=== PATIENT | female | born 1940 | race Caucasian/White ===

== ENCOUNTER 2017-03-30 18:36 | Inpatient (IN) ==
[2017-03-30] MEDS ORDERED: 0.9 % Sodium Chloride 1,000 ML IVC ONE ×2 (19:19→20:54)
--- NOTE | 2017-03-30 19:26 | Emergency Department Note ---
Disposition Clinical Impression: Hyponatremia Syncope Qualifiers: Syncope type: unspecified Qualified Code(s): R55 - Syncope and collapse Disposition: Admitted As Inpatient Condition: Good Time of Disposition: 23:33 General Adult HPI - General Chief complaint: ED Syncope Stated complaint: near syncopal Time Seen by Provider: 03/30/17 19:18 Source: patient, family, EMS Limitations: no limitations Nursing Notes Reviewed: Yes Vital Signs Reviewed: Yes (From today with a for about) - History of Present Illness HPI Narrative: One-month history of dyspnea on exertion increased weakness and falling. Last syncopal episode was today after she was lying on the couch and tried to get up. The daughter assisted her to the ground. She did not check her head. However 3 weeks ago she did have a syncopal episode outside where she did strike her head. The complaining of leg cramps today. Has been seen by her primary care physician and has a pending cardiac catheter this Friday. Pain Scale: 8 - Related Data Allergies Allergy/AdvReac Type Severity Reaction Status Date / Time codeine Allergy See Verified 03/30/17 19:50 Comments Penicillins Allergy See Verified 03/30/17 19:50 Comments All systems ED: reviewed and negative except as stated. Constitutional: Denies: fever, chills ENT ED: Denies: ear pain, throat pain, congestion Cardiovascular: Reports: syncope. Denies: chest pain, palpitations, dyspnea on exertion Respiratory: Reports: dyspnea (For the past month). Denies: cough Gastrointestinal: Denies: abdominal pain, nausea, vomiting, diarrhea Genitourinary: Denies: urgency, dysuria, frequency, hematuria Musculoskeletal: Denies: back pain, neck pain Integumentary: Denies: rash, lesions Neurological: Denies: headache, weakness Psychiatric: Denies: anxiety, depression Past Medical History - Past Medical History Medical history: Reports: hyperlipidemia, hypertension, thyroid disease - Social History Smoking Status: Never smoker Smokeless Tobacco Status: No Alcohol use: Reports: none Drug use: Reports: none Physical Exam - General Limitations: no limitations General appearance: alert, in no apparent distress - Head Head exam: atraumatic, normocephalic, other (Flattening of right-sided nasolabial folds. Report of decreased sensation initially on right side of his face. However after reassessed he states no decrease in sensation.) - Eye Eye exam: Present: normal appearance, PERRL, EOMI. Absent: scleral icterus - ENT ENT exam: normal exam, normal oropharynx, mucous membranes moist - Neck Neck exam: Present: normal inspection, full ROM, trachea midline - Chest Chest inspection: Present: normal inspection, symmetric chest wall rise. Absent : tenderness - Respiratory Respiratory exam: Present: normal lung sounds bilaterally. Absent: respiratory distress - Cardiovascular Cardiovascular exam: Present: regular rate, normal rhythm, normal heart sounds - Abdominal Exam Abdominal exam: Present: soft, Non-Tender, normal bowel sounds - Extremities Exam Extremities exam: Present: normal inspection, full ROM, normal capillary refill. Absent: tenderness, pedal edema - Back Exam Back exam: Present: normal inspection, full ROM. Absent: tenderness, CVA tenderness (R), CVA tenderness (L) - Neurological Exam Neurological exam: Present: alert, oriented X3 - Psychiatric Psychiatric exam: Present: normal affect, normal mood - Skin Skin exam: Present: warm, dry, intact, normal color Course Course Narrative: Well-appearing female patient presenting to the emergency department complaining of one month history of shortness of breath as well as 2 episodes of syncope. She appears to be mildly dyspneic on exam however lung sounds are clear. She has 100% oxygen saturation on room air. She has been seen by her primary care physician for this and has a cardiac catheter scheduled on Friday. She does have a history of hypothyroidism that she had worked up recently. She states that today she was lying on a couch and went to stand up and felt like she was going to pass out. Her daughter helped her back down to the ground. She did not strike her head. However 3-4 weeks ago she did have a syncopal episode in her yard and she struck her head at that time. She is on aspirin. She is neurologically intact at this time. She denies any chest pain. She does report that the shortness of breath that has been chronic over the past month but gets worse with exertion. She is also complaining of leg cramps at this time. We will give patient pain medication for this. She does not have any edema in any of her extremities. Patient's lung sounds are clear and heart sounds are normal. Abdomen is soft and nontender on exam. She appears well however mildly dyspneic. We will do a cardiac workup on patient and get a d-dimer. We will give patient a fluid bolus and pain medication for her cramping. - Reevaluation(s) Reevaluation #1: Patient is hyponatremic. We will admit patient for this. Patient and family are agreeable to this plan. Time: 23:32 - Consultations Consultation #1: Dr Son accepted Pt in stable condition. Time: 21:42 Vital Signs Temperature 97.5 F L 03/30/17 18:38 Pulse Rate 62 03/30/17 18:38 Respiratory Rate 18 03/30/17 18:38 Blood Pressure 169/82 03/30/17 18:38 O2 Sat by Pulse Oximetry 100 03/30/17 18:38 Temperature 97.9 F 03/30/17 23:04 Pulse Rate 61 03/30/17 23:12 Respiratory Rate 19 03/30/17 23:04 Blood Pressure 173/87 03/30/17 23:04 O2 Sat by Pulse Oximetry 100 03/30/17 23:12 Oxygen Delivery Oxygen Delivery Room Air Medical Decision Making - Medical Records Medical records reviewed: Yes I reviewed the patient's medical records. - Lab Data Lab results reviewed: Yes I reviewed the patient's lab results. Result diagrams: 03/30/17 19:41 03/30/17 19:41 Lab Results 03/30/17 03/30/17 03/30/17 Range/Units 19:41 19:41 19:41 WBC 13.6 H (4.3-11.1) K/mcL RBC 4.31 (3.82-4.97) M/mcL Hgb 13.7 (11.5-15.4) g/dL Hct 37.2 (35.3-44.9) % MCV 86.3 (83.0-100.0) fL MCH 31.8 (28.0-33.3) pg MCHC 36.8 H (31.6-35.5) g/dL RDW 11.6 (11.5-14.5) % Plt Count 371 (140-400) K/mcL MPV 8.4 L (9.4-12.4) fL Immature Gran % 1.9 (0-4) % Seg Neutrophils % 55.7 % Lymphocytes % 21.4 % Monocytes % 18.6 % Eosinophils % 2.3 % Basophils % 0.1 % Neutrophils # 7.6 (1.6-8.9) K/mcL Lymphocytes # 2.9 (0.6-4.6) K/mcL Monocytes # 2.5 H (0.0-1.3) K/mcL Eosinophils # 0.3 (0.0-0.6) K/mcL Basophils # 0.0 (0.0-0.2) K/mcL Platelet Estimate Normal (Normal) Immature Plt Fraction 1.6 (1.1-6.1) % D-Dimer (0-500) ng/mLFEU Sodium 118 L* (136-145) mEq/L Potassium 3.1 L (3.5-4.5) mEq/L Chloride 82 L (98-109) mEq/L Carbon Dioxide 25 (19-29) mEq/L BUN 15 (7-20) mg/dL Creatinine 0.75 (0.57-1.11) mg/dL Est GFR ( Amer) > 60 (> 60) Est GFR (Non-Af Amer) > 60 (> 60) BUN/Creatinine Ratio 20 (6-26) Glucose 111 H (70-99) mg/dL Calculated Osmolality 248 L (280-300) Calcium 8.4 L (8.6-10.8) mg/dL Magnesium (1.6-2.6) mg/dL Troponin I 0.01 (0-0.03) ng/mL B-Natriuretic Peptide (0-100) pg/mL TSH (0.350-4.840) mcIU/mL Free T4 (0.70-1.48) ng/dl Free T3 (1.71-3.71) pg/mL Total T3 (0.58-1.59) ng/mL 03/30/17 03/30/17 03/30/17 Range/Units 19:41 19:41 19:41 WBC (4.3-11.1) K/mcL RBC (3.82-4.97) M/mcL Hgb (11.5-15.4) g/dL Hct (35.3-44.9) % MCV (83.0-100.0) fL MCH (28.0-33.3) pg MCHC (31.6-35.5) g/dL RDW (11.5-14.5) % Plt Count (140-400) K/mcL MPV (9.4-12.4) fL Immature Gran % (0-4) % Seg Neutrophils % % Lymphocytes % % Monocytes % % Eosinophils % % Basophils % % Neutrophils # (1.6-8.9) K/mcL Lymphocytes # (0.6-4.6) K/mcL Monocytes # (0.0-1.3) K/mcL Eosinophils # (0.0-0.6) K/mcL Basophils # (0.0-0.2) K/mcL Platelet Estimate (Normal) Immature Plt Fraction (1.1-6.1) % D-Dimer 261 (0-500) ng/mLFEU Sodium (136-145) mEq/L Potassium (3.5-4.5) mEq/L Chloride (98-109) mEq/L Carbon Dioxide (19-29) mEq/L BUN (7-20) mg/dL Creatinine (0.57-1.11) mg/dL Est GFR ( Amer) (> 60) Est GFR (Non-Af Amer) (> 60) BUN/Creatinine Ratio (6-26) Glucose (70-99) mg/dL Calculated Osmolality (280-300) Calcium (8.6-10.8) mg/dL Magnesium 1.8 (1.6-2.6) mg/dL Troponin I (0-0.03) ng/mL B-Natriuretic Peptide 34 (0-100) pg/mL TSH (0.350-4.840) mcIU/mL Free T4 (0.70-1.48) ng/dl Free T3 (1.71-3.71) pg/mL Total T3 (0.58-1.59) ng/mL 03/30/17 Range/Units 19:41 WBC (4.3-11.1) K/mcL RBC (3.82-4.97) M/mcL Hgb (11.5-15.4) g/dL Hct (35.3-44.9) % MCV (83.0-100.0) fL MCH (28.0-33.3) pg MCHC (31.6-35.5) g/dL RDW (11.5-14.5) % Plt Count (140-400) K/mcL MPV (9.4-12.4) fL Immature Gran % (0-4) % Seg Neutrophils % % Lymphocytes % % Monocytes % % Eosinophils % % Basophils % % Neutrophils # (1.6-8.9) K/mcL Lymphocytes # (0.6-4.6) K/mcL Monocytes # (0.0-1.3) K/mcL Eosinophils # (0.0-0.6) K/mcL Basophils # (0.0-0.2) K/mcL Platelet Estimate (Normal) Immature Plt Fraction (1.1-6.1) % D-Dimer (0-500) ng/mLFEU Sodium (136-145) mEq/L Potassium (3.5-4.5) mEq/L Chloride (98-109) mEq/L Carbon Dioxide (19-29) mEq/L BUN (7-20) mg/dL Creatinine (0.57-1.11) mg/dL Est GFR ( Amer) (> 60) Est GFR (Non-Af Amer) (> 60) BUN/Creatinine Ratio (6-26) Glucose (70-99) mg/dL Calculated Osmolality (280-300) Calcium (8.6-10.8) mg/dL Magnesium (1.6-2.6) mg/dL Troponin I (0-0.03) ng/mL B-Natriuretic Peptide (0-100) pg/mL TSH 1.890 (0.350-4.840) mcIU/mL Free T4 1.59 H (0.70-1.48) ng/dl Free T3 2.68 (1.71-3.71) pg/mL Total T3 0.67 (0.58-1.59) ng/mL - EKG Data EKG #1 EKG attestation: Yes I reviewed and interpreted this EKG. EKG results narrative: Sinus bradycardia at a rate of 59. TN interval is 181. QRS duration is 98. QT is 435. QTC is 436. No signs of acute ischemia. Previous EKG we have on file is from 1997. There is minimal differences. Attestation Statement - Attestation Attestation: I, Jhonny Mclean MD, personally evaluated this patient and discussed their management with the resident physician. I reviewed the resident's note and agree with the documented findings, medical decision making, and plan of care. 77-year-old female presents with a complaint of having a near syncopal episode. No loss of consciousness. She also complains of a sensation of shortness of breath. Some cough but no fever or sputum. No chest pain. Patient had a similar episode recently and is actually scheduled for a cardiac catheter this week. On examination patient is a well-developed well-nourished well-appearing elderly female in no acute distress. She is alert and oriented 3. There is no cyanosis or diaphoresis. Chest is nontender to palpation. Breath sounds are clear and equal bilaterally. Heart regular rate and rhythm. Abdomen is soft and nontender with normal bowel sounds. No gross focal neurological deficits. Labs reviewed. Sodium 118. Chest x-ray negative. Head CT shows no acute intracranial abnormality. No acute changes on EKG. The hospitalist, Dr. Son, was consulted and accepted admission of the patient. NIH Stroke Scale - Level of Consciousness LOC: Alert - LOC Questions LOC Questions: Answers both incorrectly - LOC Commands LOC Commands: Performs both incorrectly - Best Gaze Best Gaze: Normal - Visual Visual: No visual loss - Facial Palsy Facial Palsy: Minor asymmetry on smiling, flattened nasolabial fold - Motor Arms Motor Arm-Left: No drift for 10 seconds Motor Arm-Right: No drift for 10 seconds - Motor Legs Motor Leg-Left: No drift for 5 seconds Motor Leg-Right: No drift for 5 seconds - Limb Ataxia Limb Ataxia: Normal, No Ataxia - Sensory Sensory: Normal - Best Language Best Language: No aphasia - Dysarthria Dysarthria: Normal - Extinction and Inattention Extinction and Inattention: Normal - NIHSS Total Score NIHSS Total Score: 5
[2017-03-30] MEDS ORDERED: *HR* Morphine 2 MG/ML SYRINGE IVP ONE (19:32)
[2017-03-30 19:58] LABS: Basophils % 0.1 %; Eosinophils # 0.3 K/mcL (0.0-0.6); Eosinophils % 2.3 %; Hematocrit 37.2 % (35.3-44.9); Hemoglobin 13.7 g/dL (11.5-15.4); Immature Granulocytes % 1.9 % (0-4); Immature Platelets 1.6 % (1.1-6.1); Lymphocytes # 2.9 K/mcL (0.6-4.6); Lymphocytes % 21.4 %; Mean Corpuscular HGB Conc 36.8 g/dL (31.6-35.5); Mean Corpuscular Hemoglobin 31.8 pg (28.0-33.3); Mean Corpuscular Volume 86.3 fL (83.0-100.0); Mean Platelet Volume 8.4 fL (9.4-12.4); Monocytes # 2.5 K/mcL (0.0-1.3); Monocytes % 18.6 %; Platelet Count 371 K/mcL (140-400); Red Blood Count 4.31 M/mcL (3.82-4.97); Red Cell Distribution Width 11.6 % (11.5-14.5); Segmented Neutrophils % 55.7 %
[2017-03-30 19:59] LABS: Neutrophils # 7.6 K/mcL (1.6-8.9)
[2017-03-30 20:13] LABS: BUN/Creatinine Ratio 20 (6-26); Blood Urea Nitrogen 15 mg/dL (7-20); Calcium 8.4 mg/dL (8.6-10.8); Carbon Dioxide 25 mEq/L (19-29); Chloride 82 mEq/L (98-109); Glucose 111 mg/dL (70-99); Osmolality,Calculated 248 (280-300); Potassium 3.1 mEq/L (3.5-4.5); eGFR For African Americans > 60 (> 60); eGFR For Non-African Americans > 60 (> 60)
[2017-03-30 20:20] LABS: Sodium 118 mEq/L (136-145)
[2017-03-30 20:21] LABS: Platelet Estimate Normal (Normal)
[2017-03-30] MEDS ORDERED: Potassium Chloride Elixir 20 MEQ/15 ML UDC PO ONE (20:46)
[2017-03-30] MEDS ORDERED: Acetaminophen 325 MG TABLET PO PRN (22:43)
[2017-03-30] MEDS ORDERED: Naloxone 0.4 MG/ML INJ IVP PRN (22:43)
[2017-03-30] MEDS ORDERED: 0.9 % Sodium Chloride 1,000 ML IVC SCH (22:45)
--- NOTE | 2017-03-30 22:53 | Internal Med History&Physical ---
Date of Encounter: 03/30/17 Time of Encounter: 21:00 Assessment and Plan (1) Hyponatremia Current visit: Yes Status: Acute Etiology is and determined. We will give patient normal saline infusion and sodium chloride pills. - Closely monitor sodium level, goal is sodium level increase not over 8 mEq within first 24 hours (2) Near syncope Current visit: Yes Status: Acute Etiology is undetermined. Patient complains of generalized weak for weeks, worsening in 2-3 days. - We will place patient on continuous cardiac monitoring to rule out arrhythmia. - Check echo and duplex of carotid. - Closely monitor patient. (3) Hypertension Current visit: Yes Status: Acute Place patient on hydralazine IV when necessary. Will resume home medication as home medications verified in am. Qualifiers: Hypertension type: essential hypertension Qualified Code(s): I10 - Essential (primary) hypertension (4) Hypothyroidism Current visit: Yes Status: Acute TSH is within normal limits. We will resume home medication as it verified Qualifiers: Hypothyroidism type: unspecified Qualified Code(s): E03.9 - Hypothyroidism , unspecified (5) DVT prophylaxis Current visit: Yes Status: Acute Heparin subcutaneously. Internal Medicine - H&P: HPI Chief complaint: Near-syncope Admitted From: Home Plans for Post Hospital Care: Home History of present illness: Ms. Cunningham is a 77 year old female presents to ER for weakness and fall for 2-3 days. Patient said she feels generalized weak, and fall twice. Patient denies loss of consciousness. She denies head injury or neck injury. Patient has no fever, no headache, no cough, no chest pain. She has mild nausea but no vomiting. Patient denies fecal or urinary incontinence. She has no seizure, however, family member to the me she has eye staring when she almost fall. Patient complain exertional shortness of breath in several weeks, denies orthopnea or paroxysmal nocturnal dyspnea, no leg swelling. The emergency room she was found hyponatremia with sodium level 118. She was admitted for further management. I have discussed the CODE STATUS with patient, she is full code. Past Med Surg Social Fam HX - Past Medical History Medical history: hyperlipidemia, hypertension, thyroid disease - Social History Smoking Status: Never smoker Smokeless Tobacco Status: No Alcohol use: none Drug use: none - Family History Brother Hx Family Cardiac Disorders: Yes (CABG) Internal Medicine - H&P: Meds Allergies codeine Allergy (Verified 03/30/17 19:50) See Comments Penicillins Allergy (Verified 03/30/17 19:50) See Comments All Systems PM: A 10-system review of systems was performed and is negative for pertinent findings except as documented above in the HPI. - Constitutional Vitals: Temp Pulse Resp BP Pulse Ox 0 F L 59 0 0/0 97 03/30/17 22:35 03/30/17 21:17 03/30/17 22:35 03/30/17 22:35 03/30/17 21:17 General appearance: Present: A&O X 3, no acute distress, answers questions appropriately - Head Head exam: Present: atraumatic, normocephalic - Eye Eye exam: Present: PERRL, conjuntiva pink, sclera anicteric Pupils: Present: PERRL - Neck Neck exam general surgery: Present: supple, trachea midline. Absent: lymphadenopathy - Respiratory Respiratory exam: Present: CTAB. Absent: accessory muscle use, rales, rhonchi, wheezes - Cardiovascular Cardiovascular exam: Present: RRR, +S1, +S2. Absent: diastolic murmur, gallop, rubs, systolic murmur - GI/Abdominal GI/Abdominal exam: Present: normal bowel sounds, soft, no peritoneal signs. Absent: distended, tenderness - Extremities Exam Extremities exam: Present: warm, radial pulses palpable and symetrical. Absent : calf tenderness, cyanotic, pedal edema - Neurological Exam Neurological exam: Present: CN II-XII intact, oriented X3, no focal deficits. Absent: pronater drift, facial droop, speech deficit - Skin Skin exam: Present: dry, intact Internal Med - H&P Results - Labs CBC & Chem 7: 03/30/17 19:41 03/30/17 23:47
[2017-03-30 23:03] LABS: Thyroid Stimulating Hormone 1.89 mcIU/mL (0.350-4.840); Triiodothyronine (T3) Free 2.68 pg/mL (1.71-3.71); Triiodothyronine (T3) Total 0.67 ng/mL (0.58-1.59)
[2017-03-31 00:05] LABS: BUN/Creatinine Ratio 19 (6-26); Blood Urea Nitrogen 14 mg/dL (7-20); Calcium 7.8 mg/dL (8.6-10.8); Carbon Dioxide 23 mEq/L (19-29); Chloride 87 mEq/L (98-109); Glucose 107 mg/dL (70-99); Osmolality,Calculated 247 (280-300); Potassium 3.8 mEq/L (3.5-4.5); eGFR For African Americans > 60 (> 60); eGFR For Non-African Americans > 60 (> 60)
[2017-03-31 00:13] LABS: Bilirubin,Urine Negative (Negative); Blood,Urine Negative (Negative); Clarity,Urine Clear (Clear); Color,Urine Yellow (Yellow); Glucose,Urine (UA) Normal (Normal); Ketones,Urine Negative (Negative); Leukocyte Esterase,Urine Trace (Negative); Nitrite,Urine Negative (Negative); PH,Urine 7.5 pH Units (5.0-8.0); Protein,Urine Negative (Neg-Trace); Specific Gravity,Urine 1.012 (1.010-1.025); Urobilinogen,Urine Normal (Normal)
[2017-03-31 00:15] LABS: Bacteria,Urine None Seen per hpf (None-Few); Hyaline Casts,Urine None Seen per lpf (None-Few); RBC,Urine 0-3 per hpf (0-3); Squamous Epithelial Cell,Urine Moderate per lpf (None-Few); WBC,Urine 0-3 per hpf (0-3)
[2017-03-31 00:16] LABS: Sodium 118 mEq/L (136-145)
[2017-03-31] MEDS: Ondansetron 4 MG/2 ML VIAL IVP PRN ×2 (01:32→19:45)
[2017-03-31] MEDS ORDERED: traZODone 50 MG TABLET PO ONE (01:40)
[2017-03-31 04:49] LABS: Basophils % 0.2 %; Eosinophils # 0.2 K/mcL (0.0-0.6); Eosinophils % 1.7 %; Hematocrit 38.2 % (35.3-44.9); Hemoglobin 13.9 g/dL (11.5-15.4); Immature Granulocytes % 1.4 % (0-4); Lymphocytes # 2.6 K/mcL (0.6-4.6); Lymphocytes % 21.1 %; Mean Corpuscular HGB Conc 36.4 g/dL (31.6-35.5); Mean Corpuscular Hemoglobin 31.7 pg (28.0-33.3); Mean Corpuscular Volume 87.2 fL (83.0-100.0); Mean Platelet Volume 8.3 fL (9.4-12.4); Monocytes # 1.9 K/mcL (0.0-1.3); Monocytes % 15.1 %; Neutrophils # 7.6 K/mcL (1.6-8.9); Platelet Count 316 K/mcL (140-400); Red Blood Count 4.38 M/mcL (3.82-4.97); Red Cell Distribution Width 11.8 % (11.5-14.5); Segmented Neutrophils % 60.5 %
[2017-03-31 05:01] LABS: BUN/Creatinine Ratio 19 (6-26); Blood Urea Nitrogen 13 mg/dL (7-20); Calcium 8.3 mg/dL (8.6-10.8); Carbon Dioxide 23 mEq/L (19-29); Chloride 87 mEq/L (98-109); Chol/HDL Ratio 2.3 (0-4.9); Glucose 113 mg/dL (70-99); Magnesium 1.8 mg/dL (1.6-2.6); Osmolality,Calculated 247 (280-300); Phosphorous 3.3 mg/dL (2.3-4.7); Potassium 3.4 mEq/L (3.5-4.5); eGFR For African Americans > 60 (> 60); eGFR For Non-African Americans > 60 (> 60)
[2017-03-31 05:07] LABS: Sodium 118 mEq/L (136-145)
[2017-03-31] MEDS: *HR* Heparin 5,000 UNIT/ML VIAL SQ SCH ×2 (05:24→18:55)
--- NOTE | 2017-03-31 07:19 | Electrocardiograph Report ---
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
[2017-03-31] MEDS ORDERED: 0.9 % Sodium Chloride 1,000 ML IVC SCH (08:00)
[2017-03-31] MEDS ORDERED: Potassium Chloride Elixir 20 MEQ/15 ML UDC PO ONE (08:02)
[2017-03-31 08:05] LABS: BUN/Creatinine Ratio 16 (6-26); Blood Urea Nitrogen 11 mg/dL (7-20); Calcium 8.5 mg/dL (8.6-10.8); Carbon Dioxide 22 mEq/L (19-29); Chloride 88 mEq/L (98-109); Glucose 100 mg/dL (70-99); Osmolality,Calculated 249 (280-300); Potassium 3.3 mEq/L (3.5-4.5); eGFR For African Americans > 60 (> 60); eGFR For Non-African Americans > 60 (> 60)
[2017-03-31 08:09] LABS: Sodium 120 mEq/L (136-145)
[2017-03-31 09:15] LABS: Albumin 3.1 g/dL (3.5-5.0); Albumin/Globulin Ratio 1.1 (1.1-2.2); Bilirubin,Direct 0.5 mg/dL (0.0-0.5); Bilirubin,Total 1.5 mg/dL (0.2-1.2); Globulin 2.9 g/dL (2.4-3.5); Uric Acid 2.3 mg/dL (2.6-6.0)
--- NOTE | 2017-03-31 09:37 | Nephrology Consult Note ---
Date of Encounter: 03/31/17 Time of Encounter: 09:37 Assessment and Plan (1) Hyponatremia Current Visit: Yes Status: Acute Patient was determined to have sodium of 118 upon admission. Nephrology was consulted to evaluate patient for hyponatremia. Sodium this morning at 120. Has been on fluid restriction 1.2L and receiving IV fluids normal saline. Initially received salt tablets, but was discontinued. BUN 11, Cr 0.69, eGFR >60. No known history of renal disease. 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 Adrenal insufficiency less likely in reported 1 weeks history of prednisone use. Urine osm, Serum osm, Urine sodium ordered. Continue monitoring bmp q4h. Continue salt tablets tid. Continue with fluid restriction. Discontinue IV fluids. Correction should be at most 6-8mEq per 24 hours. May consider cortisol stress test. Continue holding chlorthalidone. Continue renal protective strategy. Avoid nephrotoxic agents. No indication for urgent hemodialysis. (2) Hypokalemia Current Visit: Yes Status: Acute Potassium 3.3 this morning in patient with known history of hypokalemia. Potassium, despite a total of 80mEq oral potassium given/24 hours. Continue to monitor and replete as necessary. (3) Near syncope Current Visit: Yes Status: Acute Patient presented to the ED with near syncopal episode after standing up. Determined to have hyponatremia and history of hypokalemia. Continue per plan in assessment above and Hospitalist plan. (4) Hypertension Current Visit: Yes Status: Chronic Bp 143/77, rate 69. Continue per Hospitalist plan. Continue holding chlorthalidone. Qualifiers: Hypertension type: essential hypertension Qualified Code(s): I10 - Essential (primary) hypertension (5) Hypothyroidism Current Visit: Yes Status: Chronic History of hypothyroidism. TSH 1.890 Continue per Hospitalist plan. Qualifiers: Hypothyroidism type: unspecified Qualified Code(s): E03.9 - Hypothyroidism , unspecified History of Present Illness - Reason for Consult Consult date: 03/31/17 hyponatremia Requesting physician: Yusra Nielson - Chief Complaint Near syncope, hyponatremia - History of Present Illness Ms. Cunningham is a 77 year old female with history of hypertension, hyperlipidemia, and hypothyroidism who presented to the ED yesterday with complaint of presyncope and generalized weakness after standing up. Patient also reported leg cramps and associated nausea. patient reports about 3 weeks ago she felt weak and sustained a fall where she hit her head. Patient denies fevers, chills , sweats, changes in vision or hearing, lightheadedness, dizziness, vomiting, chest pain or pressure, palpitations, shortness of breath, abdominal pain, changes in bowels or bladder, dysuria, hematuria, or loss of sensation. Patient reports being on prednisone for about 1 week for hip arthritis. CXR was negative, CT head revealed moderate-sever age related changes, prior lacuna infarct, no acute intracranial abnormality. Chest CT revealed small pericardial effusion, hiatal hernia, and atherosclerosis, no acute changes. Labs on admission revealed the following: WBC 13.6, sodium 118, potassium 3.8, BUN 14, Cr 0.72, Calcium 7.8, Albumin 3.1, uric acid 2.3. Nephrology was consulted for evaluation of patient with Hyponatremia. Past Med Surg Social Fam HX - Past Medical History Medical history: hyperlipidemia, hypertension, thyroid disease Psychiatric history: depression - Social History Smoking Status: Never smoker Smokeless Tobacco Status: No Alcohol use: none Drug use: none - Family History Brother Hx Family Cardiac Disorders: Yes (CABG) Medications and Allergies Aspirin [Lo-Dose Aspirin EC] 81 mg PO DAILY 03/31/17 [History] Atorvastatin Calcium [Lipitor] 80 mg PO HS 03/31/17 [History] Calcium Carbonate [Calcium] 500 mg PO DAILY 03/31/17 [History] Chlorthalidone 25 mg PO DAILY 03/31/17 [History] DULoxetine [Cymbalta] 30 mg PO BID 03/31/17 [History] Diclofenac Sodium [Voltaren] 1 appl TP QID 03/31/17 [History] Donepezil [Aricept] 10 mg PO HS 03/31/17 [History] Levothyroxine [Synthroid] 50 mcg PO 0630 03/31/17 [History] Meclizine HCl [Verticalm] 25 mg PO DAILY PRN 03/31/17 [History] Mv-Mn/FA/Vit K/Lycop/Lut/Coq10 [Daily Multivitamin Capsule] 1 each PO DAILY [History] Omeprazole [PriLOSEC] 40 mg PO DAILY 03/31/17 [History] Oxybutynin [Ditropan] 5 mg PO BID 03/31/17 [History] Potassium Chloride 10 meq PO BID 03/31/17 [History] predniSONE [PredniSONE] 40 mg PO DAILY 03/31/17 [History] traZODone [TraZODone] 50 mg PO HS 03/31/17 [History] Allergies Penicillins Allergy (Verified 03/31/17 09:10) Rash codeine Adverse Reaction (Verified 03/31/17 09:10) Vomiting Review of Systems Constitutional: no chills, no fever(s), no headache(s), no weakness Nose, mouth and throat: as per HPI, no dizziness, no headache(s), no neck pain Cardiovascular: as per HPI, no chest pain, no dyspnea, no dyspnea on exertion, no edema, no irregular heart rhythm, no palpitations, no pedal edema Respiratory: no cough, no dyspnea Gastrointestinal: as per HPI, nausea, no abdominal pain, no change in bowel habits, no diarrhea, no vomiting Genitourinary Female: no dysuria, no flank pain Musculoskeletal: as per HPI, no abnormal gait, no neck pain, no tingling Integumentary: as per HPI, no new lesions, no skin ulcer, no sores Neurological: as per HPI, no abnormal gait, no confusion, no dizziness, no headache(s), no numbness, no syncope, no weakness Exam - Vital Signs Vital signs: Initial Vital Signs Temp Pulse Resp BP Pulse Ox 97.5 F L 62 18 169/82 100 03/30/17 18:38 03/30/17 18:38 03/30/17 18:38 03/30/17 18:38 03/30/17 18:38 Vital Signs - Last 8 Hours Temp Pulse Resp BP Pulse Ox 03/31/17 07:20 97.5 F L 73 16 138/84 98 03/31/17 03:19 97.7 F 58 15 166/82 96 Intake and Output 03/30/17 03/31/17 03/31/17 23:59 07:59 15:59 Intake Total 320 / 320 Output Total 400 / 400 250 / 250 Balance -400 / -400 -250 / -250 320 / 320 Intake: Oral 320 / 320 Output: Urine 400 / 400 250 / 250 Other: Meal Breakfast Percent of Meal Consumed 75% Stool Size Moderate Stool Consistency soft Stool Color Brown # Voids 1 # Bowel Movements 1 Weight 62.1 kg 62.3 kg Patient Weight 03/31/17 23:59 Weight 62.3 kg - General Appearance General appearance: well-developed, well-nourished, appears started age EENT: PERRL, mucous membranes moist Neck: no JVD, no thyromegaly, no carotid bruit, supple Respiratory: clear Cardiology: no murmurs, no edema, regular rate, regular rhythm, normal S1, normal S2 Gastrointestinal: normoactive bowel sounds, no tenderness, no guarding, no masses Integumentary: no rash, warm and dry Additional Comments: varicose veins noted over bilateral ankles, no edema Neurologic: no focal deficit, no asterixis, alert and oriented x3, strength 5/5 , CN 3-12 intact Musculoskeletal: no deformities, no erythema, no cyanosis, no clubbing Psychiatric: mood/affect appropriate, cooperative Results - Lab Results 03/31/17 04:37 03/31/17 07:34 Most recent lab results Calcium 8.5 mg/dL (8.6-10.8) L 03/31/17 07:34 Phosphorus 3.3 mg/dL (2.3-4.7) 03/31/17 04:37 Magnesium 1.8 mg/dL (1.6-2.6) 03/31/17 04:37 Consult Discharge Plan - Plan Referrals: Phuc Lemus MD [Primary Care Provider] -
--- NOTE | 2017-03-31 12:13 | ECHO - Doppler Report ---
Echocardiogram Name: Laura Cunningham Date of Study: 03/31/2017 Date: 1940 Ht: 66.0 in Medical Record#: [id number] Age: 77 Wt: 136.0 lb Gender: Female BSA: 1.7 Order #: [id number] Location: [facility] Room #: 2N14 Reading Physician: Alcira Webb DO Party Plan Selling Distributor: Molina Bledsoe RN Ordering Physician: Aaron Garcia MD Primary Physician: Phuc Lemus MD Indications: Near Syncope Impressions: LVEF 60-65%. Normal left ventricular size and systolic function. There is evidence of mild diastolic dysfunction of the left ventricle. Normal right ventricular size and function. Mild tricuspid regurgitation. No pulmonary hypertension. Left Ventricular Wall Motion: Rest Echo Findings All wall segments showed normal motion. Findings: Study Quality * Technically adequate exam. ECG Findings * Normal sinus rhythm. Left Ventricle * LVEF 60-65%. * Normal LV chamber size, wall thickness and function. * Mild left ventricular diastolic dysfunction. Left Atrium * Normal left atrial size. Mitral Valve * Normal mitral valve structure. * No mitral stenosis. * No mitral regurgitation. Aortic Valve * Trileaflet aortic valve. * Normal aortic valve structure. * No aortic stenosis. * Trace aortic regurgitation. Tricuspid Valve * Tricuspid valve not well visualized. * Mild tricuspid regurgitation. * Estimated RA pressure is 3 mmHg. * Estimated RVSP is 32 mmHg. * No pulmonary hypertension. Pulmonic Valve * Pulmonic valve is not well visualized. * No pulmonic stenosis. * Trace pulmonic regurgitation. Pulmonary Artery * Pulmonary artery not well visualized. Right Ventricle * Normal right ventricular structure and function. Right Atrium * Normal right atrial size. Interatrial Septum * No evidence of PFO by color Doppler. Pericardium * There is no pericardial effusion present. Aorta * Normally sized aortic root. IVC * The IVC is not dilated. History Hypertension Hypercholesteremia Family History of CAD 05/13/2001 a Previous Echo was performed. Measurements: BP: 138/ 84 2D Normal Values RVIDd: 1.50 cm <2.7 cm IVSd: 1.00 cm 0.6 - 1.0 cm LVIDd: 3.30 cm 3.7 - 5.6 cm LVPWd: 1.00 cm 0.6 - 1.1 cm LVIDs: 2.30 cm 1.5 - 3.6 cm LA: 3.70 cm 2.0 - 4.0cm LVOT Diam: 1.60 cm LA volume: 35 Mitral Valve Peak E' Lat Laurent:9.85 cm/s Peak E' Med Laurent:9.26 cm/s E/E' Lat Ratio:5.3 E/E' Med Ratio:5.6 Aortic Valve AI pressure Half-time: 372.00 msec Tricuspid Valve TV Regurg Peak Grad: 29.00mmHg TV Regurg Peak Laurent: 2.71m/sec Updated by Alcira Webb on 03/31/2017 12:09:05 PM electronically signed on 03/31/2017 12:09:45 PM with status of Final Wall Motion Brooks: 1=Normal, 2=Hypokinesis, 3=Akinesis, 4=Dyskinesis, 5=Aneurysmal, 6=Hyperkinetic, X=Not Visualized (Blank)=Missing
[2017-03-31 12:29] LABS: BUN/Creatinine Ratio 14 (6-26); Blood Urea Nitrogen 10 mg/dL (7-20); Calcium 8.6 mg/dL (8.6-10.8); Carbon Dioxide 24 mEq/L (19-29); Chloride 90 mEq/L (98-109); Glucose 104 mg/dL (70-99); Osmolality,Calculated 251 (280-300); Potassium 3.9 mEq/L (3.5-4.5); Sodium 121 mEq/L (136-145); eGFR For African Americans > 60 (> 60); eGFR For Non-African Americans > 60 (> 60)
[2017-03-31 13:19] LABS: Amphetamine Screen,Urine Negative ng/mL (Cutoff=1000); Barbiturate Screen,Urine Negative ng/mL (Cutoff=200); Benzodiazepines Screen,Urine Negative ng/mL (Cutoff=200); Cannabinoid Screen,Urine Negative ng/mL (Cutoff = 50); Cocaine Screen,Urine Negative ng/mL (Cutoff= 300); Opiate Screen,Urine Negative ng/mL (Cutoff=300); Phencyclidine Screen,Urine Negative ng/mL (Cutoff=25)
[2017-03-31 14:53] LABS: BUN/Creatinine Ratio 16 (6-26); Blood Urea Nitrogen 12 mg/dL (7-20); Calcium 8.3 mg/dL (8.6-10.8); Carbon Dioxide 22 mEq/L (19-29); Chloride 92 mEq/L (98-109); Glucose 149 mg/dL (70-99); Osmolality,Calculated 257 (280-300); Sodium 122 mEq/L (136-145); eGFR For African Americans > 60 (> 60); eGFR For Non-African Americans > 60 (> 60)
[2017-03-31 14:54] LABS: Potassium 3.7 mEq/L (3.5-4.5)
--- NOTE | 2017-03-31 18:17 | Internal Med Progress Note ---
Date of Encounter: 03/31/17 Time of Encounter: 10:45 - Assessment and plan (1) Near syncope Current Visit: Yes Status: Acute Assessment and plan: Patient reports a 2-3 day history of generalized weakness and 2 episodes of falling. She came after having an episode of lightheadedness after standing up. She denies any loss of consciousness. Likely secondary to chronic hyponatremia. Plan as in hyponatremia. (2) Hyponatremia Current Visit: Yes Status: Acute Assessment and plan: Sodium was 118 in our ED. Patient denies any vomiting, diarrhea or poor oral intake at home. She cooks regularly and eats a full meal daily. She drinks adequate amounts of fluids. No history of alcohol abuse. No new medication. She takes hydrochlorothiazide and losartan for hypertension. Upper shaving nephrology input. Continue fluid restriction 1.2 L a day and salt tablets. Stop IV fluids. Close monitor of sodium, goal is for sodium level to increase not more than 8 mEq in 24 hours. (3) Hypertension Current Visit: Yes Status: Chronic Assessment and plan: Stop losartan and hydrochlorothiazide given hyponatremia. Start hydralazine when necessary. Qualifiers: Hypertension type: essential hypertension Qualified Code(s): I10 - Essential (primary) hypertension (4) Hypothyroidism Current Visit: Yes Status: Chronic Assessment and plan: Continue home meds. Qualifiers: Hypothyroidism type: unspecified Qualified Code(s): E03.9 - Hypothyroidism , unspecified (5) Hypokalemia Current Visit: Yes Status: Acute Assessment and plan: Replete. - Subjective Interval history: Patient denies any vomiting, diarrhea or poor oral intake at home. She cooks regularly and eats a full meal daily. She drinks adequate amounts of fluids. No history of alcohol abuse. No new medication. - Constitutional Vitals: Temp Pulse Resp BP Pulse Ox 97.9 F 68 16 151/79 100 03/31/17 15:47 03/31/17 16:06 03/31/17 15:47 03/31/17 15:47 03/31/17 15:47 General appearance: Present: cooperative, A&O X 3, pleasant, no acute distress, answers questions appropriately - Neck Neck exam general surgery: Present: supple, trachea midline. Absent: lymphadenopathy - Respiratory Respiratory exam: Present: CTAB - Cardiovascular Cardiovascular exam: Present: RRR - GI/Abdominal GI/Abdominal exam: Present: normal bowel sounds, soft. Absent: distended, tenderness - Extremities Exam Extremities exam: Absent: pedal edema - Back Exam Back exam: Absent: CVA tenderness (L), CVA tenderness (R) - Neurological Exam Neurological exam: Present: alert, oriented X3, no focal deficits, strengths equal and symetr throughout. Absent: facial droop, speech deficit - Skin Skin exam: Absent: rash Internal Medicine: Result - Labs CBC & Chem 7: 03/31/17 04:37 03/31/17 14:30 Labs: BMP 03/31/17 03/31/17 12:02 14:30 Sodium 121 L 122 L Potassium 3.9 3.7 Chloride 90 L 92 L Carbon Dioxide 24 22 BUN 10 12 Creatinine 0.74 0.75 Glucose 104 H 149 H Calcium 8.6 8.3 L - ABG Interpretation ABG results: PT/INR, D-dimer D-Dimer 261 ng/mLFEU (0-500) 03/30/17 19:41 Consult Discharge Plan - Plan Referrals: Phuc Lemus MD [Primary Care Provider] - 04/08/17 10:30 am
[2017-03-31] MEDS ORDERED: hydrALAZINE 25 MG TABLET PO PRN (18:24)
[2017-03-31 20:36] LABS: BUN/Creatinine Ratio 14 (6-26); Blood Urea Nitrogen 11 mg/dL (7-20); Calcium 8.5 mg/dL (8.6-10.8); Carbon Dioxide 23 mEq/L (19-29); Chloride 92 mEq/L (98-109); Glucose 160 mg/dL (70-99); Osmolality,Calculated 261 (280-300); Potassium 3.5 mEq/L (3.5-4.5); Sodium 124 mEq/L (136-145); eGFR For African Americans > 60 (> 60); eGFR For Non-African Americans > 60 (> 60)
[2017-03-31] MEDS ORDERED: traZODone 50 MG TABLET PO SCH (21:00)
[2017-04-01 02:02] LABS: BUN/Creatinine Ratio 16 (6-26); Blood Urea Nitrogen 12 mg/dL (7-20); Calcium 8.4 mg/dL (8.6-10.8); Carbon Dioxide 23 mEq/L (19-29); Chloride 92 mEq/L (98-109); Glucose 122 mg/dL (70-99); Osmolality,Calculated 261 (280-300); Potassium 3.4 mEq/L (3.5-4.5); Sodium 125 mEq/L (136-145); eGFR For African Americans > 60 (> 60); eGFR For Non-African Americans > 60 (> 60)
[2017-04-01 04:48] LABS: Basophils % 0.2 %; Eosinophils # 0.3 K/mcL (0.0-0.6); Eosinophils % 2.5 %; Hematocrit 38.2 % (35.3-44.9); Hemoglobin 13.8 g/dL (11.5-15.4); Immature Granulocytes % 1.3 % (0-4); Lymphocytes % 27.4 %; Mean Corpuscular HGB Conc 36.1 g/dL (31.6-35.5); Mean Corpuscular Hemoglobin 31.7 pg (28.0-33.3); Mean Corpuscular Volume 87.8 fL (83.0-100.0); Mean Platelet Volume 8.8 fL (9.4-12.4); Monocytes # 1.7 K/mcL (0.0-1.3); Monocytes % 15.1 %; Neutrophils # 5.9 K/mcL (1.6-8.9); Platelet Count 330 K/mcL (140-400); Red Blood Count 4.35 M/mcL (3.82-4.97); Red Cell Distribution Width 11.8 % (11.5-14.5); Segmented Neutrophils % 53.5 %
[2017-04-01 05:06] LABS: BUN/Creatinine Ratio 16 (6-26); Blood Urea Nitrogen 12 mg/dL (7-20); Calcium 8.4 mg/dL (8.6-10.8); Carbon Dioxide 22 mEq/L (19-29); Chloride 94 mEq/L (98-109); Glucose 115 mg/dL (70-99); Osmolality,Calculated 261 (280-300); Potassium 3.5 mEq/L (3.5-4.5); Sodium 125 mEq/L (136-145); eGFR For African Americans > 60 (> 60); eGFR For Non-African Americans > 60 (> 60)
[2017-04-01] MEDS: *HR* Heparin 5,000 UNIT/ML VIAL SQ SCH ×2 (06:06→18:11)
[2017-04-01 06:22] LABS: BUN/Creatinine Ratio 16 (6-26); Blood Urea Nitrogen 12 mg/dL (7-20); Calcium 8.4 mg/dL (8.6-10.8); Carbon Dioxide 24 mEq/L (19-29); Chloride 93 mEq/L (98-109); Glucose 116 mg/dL (70-99); Osmolality,Calculated 263 (280-300); Potassium 3.6 mEq/L (3.5-4.5); Sodium 126 mEq/L (136-145); eGFR For African Americans > 60 (> 60); eGFR For Non-African Americans > 60 (> 60)
--- NOTE | 2017-04-01 08:33 | Nephrology Progress Note ---
Date of Encounter: 04/01/17 Time of Encounter: 08:33 - Assessment and Plan (1) Hyponatremia Current Visit: Yes Status: Acute Sodium this morning at 126, from 120 yesterday morning. BUN 12, Cr 0.73, GFR > 60. No known history of renal disease. Serum osm 259L, Urine osm 242 L, Urine sodium 72. Euvolemic hyponatremia likely secondary to medications, chlorthalidone and duloxetine. SIADH unlikely in the presence of a low urine osm. Continue monitoring bmp q12h Continue salt tablets tid Continue with fluid restriction. Correction at most 6-8 mEq per 24 hours. Discontinued chlorthalidone. Nephrology will continue to follow patient into tomorrow. Planning for discharge. Patient to have BMP checked within 1 week of discharge and Nephro follow up appointment as outpatient in 3-6 weeks. Patient to follow up with PCP regarding possible discontinuance of duloxetine, another possible cause of hyponatremia. Continue renal protective strategy. Avoid nephrotoxic agents. No indication for urgent hemodialysis. (2) Hypokalemia Current Visit: Yes Status: Acute Potassium 3.5 this morning. Continue to monitor and replete as necessary. (3) Near syncope Current Visit: Yes Status: Acute May have been secondary to hyponatremia. Continue per Hospitalist plan (4) Hypertension Current Visit: Yes Status: Chronic Bp 150/74, rate 78 Discontinued chlorthalidone as this is likely a cause of the patient's hyponatremia. Start Carvedilol 6.25mg bid. Plan to uptitrate as needed. Avoid thiazides. Avoid CCB due to risk of swelling. Avoid ACEi/ARB because of possible, but low likelihood of of development of hyponatremia due to aldosterone resistance. Qualifiers: Hypertension type: essential hypertension Qualified Code(s): I10 - Essential (primary) hypertension (5) Hypothyroidism Current Visit: Yes Status: Chronic Continue per Hospitalist plan. Qualifiers: Hypothyroidism type: unspecified Qualified Code(s): E03.9 - Hypothyroidism , unspecified Subjective Principal diagnosis: Pre-syncope, Hyponatremia Interval history: Patient reports feeling much better this morning than yesterday. Patient denies fevers, chills, sweats, headaches, lightheadedness, dizziness, nausea, vomiting, chest pain, shortness of breath, abdominal pain, changes in bowels or bladder, hematuria, dysuria, weakness, or loss of sensation. Sodium this morning 126, from 120 yesterday morning. Objective - Vital Signs Vital signs: Vital Signs Temp Pulse Resp BP Pulse Ox 04/01/17 07:50 83 04/01/17 07:14 97.7 F 78 14 150/74 97 04/01/17 04:32 98.4 F 82 16 143/79 98 03/31/17 23:48 97.8 F 98 15 157/87 97 03/31/17 20:12 97.9 F 82 16 149/81 98 03/31/17 18:52 78 03/31/17 16:06 68 03/31/17 15:47 97.9 F 74 16 151/79 100 03/31/17 11:47 97.8 F 69 16 143/77 100 Intake and Output 03/31/17 04/01/17 04/01/17 23:59 07:59 15:59 Intake Total 435 / 435 Balance 435 / 435 Intake: Oral 435 / 435 Other: Meal Dinner Percent of Meal Consumed 50% Stool Size Moderate Stool Consistency loose Stool Characteristics Mucoid Stool Color Brown # Bowel Movements 1 Weight 63.5 kg Patient Weight 04/01/17 23:59 Weight 63.5 kg - General Appearance General appearance: Present: well-developed, well-nourished, appears started age EENT: Present: PERRL, mucous membranes moist Neck: Present: no JVD, no thyromegaly, no carotid bruit, supple Respiratory: Present: clear Cardiology: Present: no murmurs, no rub, no edema, regular rate, regular rhythm , normal S1, normal S2 Gastrointestinal: Present: normoactive bowel sounds, no tenderness, no guarding , no masses Integumentary: Present: no rash, warm and dry Additional Comments: varicose veins noted over bilateral ankles, no edema. Neurologic: Present: no focal deficit, alert and oriented x3, strength 5/5, CN 3 -12 intact Musculoskeletal: Present: no deformities, no erythema, no cyanosis, no clubbing Psychiatric: Present: mood/affect appropriate, cooperative - Lab 04/01/17 04:04 04/01/17 05:45 Most recent lab results Calcium 8.4 mg/dL (8.6-10.8) L 04/01/17 05:45 Phosphorus 3.3 mg/dL (2.3-4.7) 03/31/17 04:37 Magnesium 1.7 mg/dL (1.6-2.6) 04/01/17 04:04 Urine Sodium 72.0 mEq/L 03/31/17 12:45 Consult Discharge Plan - Plan Referrals: Phuc Lemus MD [Primary Care Provider] - 04/08/17 10:30 am
[2017-04-01] MEDS ORDERED: Aspirin 81 MG TAB.CHEW PO SCH (09:00)
[2017-04-01] MEDS ORDERED: hydrALAZINE 25 MG TABLET PO SCH (09:00)
[2017-04-01] MEDS ORDERED: Acetaminophen 325 MG TABLET PO PRN (09:58)
[2017-04-01] MEDS ORDERED: Naloxone 0.4 MG/ML INJ IVP PRN (09:58)
[2017-04-01] MEDS ORDERED: Ondansetron 4 MG/2 ML VIAL IVP PRN (09:58)
[2017-04-01 10:06] LABS: BUN/Creatinine Ratio 16 (6-26); Blood Urea Nitrogen 13 mg/dL (7-20); Calcium 8.6 mg/dL (8.6-10.8); Carbon Dioxide 24 mEq/L (19-29); Chloride 93 mEq/L (98-109); Glucose 165 mg/dL (70-99); Osmolality,Calculated 266 (280-300); Potassium 3.1 mEq/L (3.5-4.5); Sodium 126 mEq/L (136-145); eGFR For African Americans > 60 (> 60); eGFR For Non-African Americans > 60 (> 60)
[2017-04-01] MEDS ORDERED: Magnesium Sulfate 1 GM in D5% in Water 100 ML IVPB ONE (15:45)
[2017-04-01] MEDS: hydrALAZINE 25 MG TABLET PO SCH (15:54)
--- NOTE | 2017-04-01 18:04 | Internal Med Progress Note ---
Date of Encounter: 04/01/17 Time of Encounter: 09:15 - Assessment and plan (1) Near syncope Current Visit: Yes Status: Acute Assessment and plan: Patient reports a 2-3 day history of generalized weakness and 2 episodes of falling. She came after having an episode of lightheadedness after standing up. She denies any loss of consciousness. Likely secondary to chronic hyponatremia. Plan as in hyponatremia. (2) Hyponatremia Current Visit: Yes Status: Acute Assessment and plan: Severe hyponatremia. Sodium was 118 in our ED. Patient denied any vomiting, diarrhea or poor oral intake at home. She cooks regularly and eats a full meal daily. She drinks adequate amounts of fluids. No history of alcohol abuse. No new medication. She takes hydrochlorothiazide and losartan for hypertension. Appreciate nephrology input. Sodium up to 124 this morning. Continue fluid restriction 1.2 L a day and salt tablets. Close monitor of sodium. Holding home dose hydrochlorothiazide, chlorthalidone, losartan and Cymbalta. (3) Hypertension Current Visit: Yes Status: Chronic Assessment and plan: Holding losartan and hydrochlorothiazide given hyponatremia. Start oral hydralazine 3 times a day. Close monitor. Qualifiers: Hypertension type: essential hypertension Qualified Code(s): I10 - Essential (primary) hypertension (4) Hypothyroidism Current Visit: Yes Status: Chronic Assessment and plan: Continue home meds. Qualifiers: Hypothyroidism type: unspecified Qualified Code(s): E03.9 - Hypothyroidism , unspecified (5) Hypokalemia Current Visit: Yes Status: Acute Assessment and plan: Replete. - Subjective Interval history: Patient denies any dizziness, abdominal pain or diarrhea. She is eating well. - Constitutional Vitals: Temp Pulse Resp BP Pulse Ox 98.2 F 102 18 123/80 99 04/01/17 15:51 04/01/17 15:51 04/01/17 15:51 04/01/17 15:51 04/01/17 15:51 General appearance: Present: cooperative, A&O X 3, pleasant, no acute distress, answers questions appropriately - Neck Neck exam general surgery: Present: supple, trachea midline. Absent: lymphadenopathy - Respiratory Respiratory exam: Present: CTAB - Cardiovascular Cardiovascular exam: Present: RRR - GI/Abdominal GI/Abdominal exam: Present: normal bowel sounds, soft. Absent: distended, tenderness - Extremities Exam Extremities exam: Present: pedal edema - Neurological Exam Neurological exam: Present: alert, oriented X3. Absent: facial droop, speech deficit - Skin Skin exam: Absent: rash Internal Medicine: Result - Labs CBC & Chem 7: 04/01/17 04:04 04/01/17 09:18 Labs: Short CBC 04/01/17 Range/Units 04:04 WBC 11.1 (4.3-11.1) K/mcL Hgb 13.8 (11.5-15.4) g/dL Hct 38.2 (35.3-44.9) % Plt Count 330 (140-400) K/mcL Neutrophils # 5.9 (1.6-8.9) K/mcL BMP 03/31/17 04/01/17 04/01/17 20:16 00:40 04:04 Sodium 124 L 125 L 125 L Potassium 3.5 3.4 L 3.5 Chloride 92 L 92 L 94 L Carbon Dioxide 23 23 22 BUN 11 12 12 Creatinine 0.79 0.74 0.73 Glucose 160 H 122 H 115 H Calcium 8.5 L 8.4 L 8.4 L 04/01/17 04/01/17 05:45 09:18 Sodium 126 L 126 L Potassium 3.6 3.1 L Chloride 93 L 93 L Carbon Dioxide 24 24 BUN 12 13 Creatinine 0.77 0.80 Glucose 116 H 165 H Calcium 8.4 L 8.6 - ABG Interpretation ABG results: PT/INR, D-dimer D-Dimer 261 ng/mLFEU (0-500) 03/30/17 19:41 Consult Discharge Plan - Plan Referrals: Phuc Lemus MD [Primary Care Provider] - 04/08/17 10:30 am
--- NOTE | 2017-04-01 20:14 | Carotid Imaging Report ---
Carotid Duplex Patient Name:Laura Cunningham Order Number:[id number] Procedure Date:03/31/2017 Date:1940Age:77 yrs Gender:Female Lt BP:147 / 77 mmHg Rt.BP:148 / 71 mmHgHeart Rate: Location:[facility] Room #: 2N14 Senior Information Developer:Molina Bledsoe RN Referring MD:Aaron Garcia MD cabin worker:Phuc Lemus MD Reading MD:Harris Membreno MD Primary Indications:Near Syncope Risk Factors Yes/No Hypertension Yes Diabetes No Hypercholesterolemia Yes Smoker Previous No Hx of TIA No Hx of CVA No Anticoagulants No Hx of CAD/PTCA No Previous Vascular Surgery No Impressions: The bilateral carotid arteries have minimal plaque throughout. Recommendations: Test completed on 03/31/2017 at 10:55:00 am. Findings Carotid Duplex: Right: The right proximal common carotid artery has a PSV of 63 cm/s and a EDV of 11 cm/s. The right mid common carotid artery has a PSV of 63 cm/s and a EDV of 15 cm/s. The right distal common carotid artery has a PSV of 60 cm/s and a EDV of 15 cm/s. There is nonstenotic plaque in the right bifurcation with a PSV of 51 cm/s and a EDV of 16 cm/s. There is smooth heterogeneous plaque. The right proximal internal carotid artery has a PSV of 81 cm/s and a EDV of 22 cm/s. The right mid internal carotid artery has a PSV of 103 cm/s and a EDV of 32 cm/s. The right distal internal carotid artery has a PSV of 97 cm/s and a EDV of 27 cm/s. The right eca has a PSV of 63 cm/s and a EDV of 11 cm/s. The right vertebral artery has a PSV of 41 cm/s and a EDV of 9 cm/s. Left: The left proximal common carotid artery has a PSV of 70 cm/s and a EDV of 12 cm/s. The left mid common carotid artery has a PSV of 56 cm/s and a EDV of 14 cm/s. The left distal common carotid artery has a PSV of 87 cm/s and a EDV of 15 cm/s. There is nonstenotic plaque in the left bifurcation with a PSV of 40 cm/s and a EDV of 11 cm/s. There is smooth heterogeneous plaque. The left proximal internal carotid artery has a PSV of 65 cm/s and a EDV of 21 cm/s. The left mid internal carotid artery has a PSV of 77 cm/s and a EDV of 27 cm/s. The left distal internal carotid artery has a PSV of 63 cm/s and a EDV of 21 cm/s. The left eca has a PSV of 75 cm/s and a EDV of 13 cm/s. The left vertebral artery has a PSV of 46 cm/s and a EDV of 14 cm/s. Prior Study: No prior study available for comparison. Carotid Results Right PSV EDV Assessment Proximal CCA 63 11 Normal Mid CCA 63 15 Normal Distal CCA 60 15 Normal Bifurcation 51 16 Non Stenotic Plaque Proximal ICA 81 22 Normal Mid ICA 103 32 Normal Distal ICA 97 27 Normal ECA 63 11 Normal Vertebral Artery 41 9 Normal Left PSV EDV Assessment Proximal CCA 70 12 Normal Mid CCA 56 14 Normal Distal CCA 87 15 Normal Bifurcation 40 11 Non Stenotic Plaque Proximal ICA 65 21 Normal Mid ICA 77 27 Normal Distal ICA 63 21 Normal ECA 75 13 Normal Vertebral Artery 46 14 Normal Ratio's Right ICA/CCA Ratio: 1.63 ICA/CCA Values: 103/63 Left ICA/CCA Ratio: 1.38 ICA/CCA Values: 77/56 Updated by Harris Membreno MD on 04/01/2017 8:09:26 PM electronically signed on 04/01/2017 8:10:02 PM with status of Final
[2017-04-01] MEDS ORDERED: traZODone 50 MG TABLET PO SCH (21:00)
[2017-04-02] MEDS: hydrALAZINE 25 MG TABLET PO SCH ×2 (01:04→07:40)
[2017-04-02] MEDS: *HR* Heparin 5,000 UNIT/ML VIAL SQ SCH (04:39)
[2017-04-02 04:54] LABS: Alanine Aminotransferase 26 Units/L (0-55); Albumin 2.9 g/dL (3.5-5.0); Alkaline Phosphatase 70 Units/L (38-126); Aspartate Amino Transferase 24 Units/L (5-34); BUN/Creatinine Ratio 22 (6-26); Bilirubin,Direct 0.4 mg/dL (0.0-0.5); Bilirubin,Indirect 0.6 mg/dL (0.0-1.2); Blood Urea Nitrogen 16 mg/dL (7-20); Calcium 8.4 mg/dL (8.6-10.8); Carbon Dioxide 24 mEq/L (19-29); Chloride 98 mEq/L (98-109); Globulin 2.9 g/dL (2.4-3.5); Glucose 116 mg/dL (70-99); Magnesium 1.8 mg/dL (1.6-2.6); Osmolality,Calculated 270 (280-300); Potassium 3.7 mEq/L (3.5-4.5); Sodium 129 mEq/L (136-145); Total Protein 5.8 g/dL (6.0-8.3); eGFR For African Americans > 60 (> 60); eGFR For Non-African Americans > 60 (> 60)
[2017-04-02] MEDS ORDERED: Aspirin 81 MG TAB.CHEW PO SCH (09:00)
--- NOTE | 2017-04-02 09:39 | Nephrology Progress Note ---
Date of Encounter: 04/02/17 Time of Encounter: 09:38 - Assessment and Plan (1) Hyponatremia Current Visit: Yes Status: Acute Sodium this morning at 129, from 126 yesterday morning. BUN 16, Cr 0.73, GFR > 60. No known history of renal disease. Serum osm 259L, Urine osm 242 L, Urine sodium 72. Euvolemic hyponatremia likely secondary to medications, chlorthalidone and duloxetine. SIADH unlikely in the presence of a low urine osm. Continue monitoring bmp q12h Continue salt tablets tid Continue with fluid restriction. Correction at most 6-8 mEq per 24 hours. Discontinued chlorthalidone. Patient to have BMP checked withint 1 week of discharge. Nephrology follow up appointment as outpatient in 3-6 weeks. Patient to follow up with PCP regarding possible discontinuance of duloxetine, another possible cause of hyponatremia. Continue renal protective strategy. Avoid nephrotoxic agents. No indication for urgent hemodialysis. (2) Hypokalemia Current Visit: Yes Status: Acute Potassium 3.7 this morning. Continue to monitor and replete as necessary. (3) Near syncope Current Visit: Yes Status: Acute May have been secondary to hyponatremia. Continue per Hospitalist plan (4) Hypertension Current Visit: Yes Status: Chronic Bp 148/77 Discontinued chlorthalidone as this is likely a cause of the patient's hyponatremia. Continue Carvedilol 6.25mg bid. Plan to uptitrate as needed. Advised nurse to walk patient to rule out lightheadedness and dizziness secondary to initiation of carvedilol. Avoid thiazides. Avoid CCB due to risk of swelling. Avoid ACEi/ARB because of possible, but low likelihood of of development of hyponatremia due to aldosterone resistance. Qualifiers: Hypertension type: essential hypertension Qualified Code(s): I10 - Essential (primary) hypertension (5) Hypothyroidism Current Visit: Yes Status: Chronic Continue per Hospitalist plan. Qualifiers: Hypothyroidism type: unspecified Qualified Code(s): E03.9 - Hypothyroidism , unspecified Subjective Principal diagnosis: Pre-syncope, Hyponatremia Interval history: Patient reports continued improvement. Patient denies fevers, chills, sweats, headaches, lightheadedness, dizziness, nausea, vomiting, chest pain, shortness of breath, abdominal pain, changes in bowels or bladder, hematuria, dysuria, weakness, or loss of sensation. Sodium this morning 129, yesterday morning 126. Objective - Vital Signs Vital signs: Vital Signs Temp Pulse Resp BP Pulse Ox 04/02/17 07:53 82 04/02/17 07:00 98.4 F 94 15 148/80 95 04/02/17 04:35 83 04/02/17 03:38 98.4 F 84 15 150/75 96 04/02/17 01:10 83 04/01/17 23:22 97.8 F 84 16 140/76 95 04/01/17 20:30 94 04/01/17 19:15 98.4 F 84 18 131/72 96 04/01/17 15:51 98.2 F 102 18 123/80 99 04/01/17 15:00 87 04/01/17 11:24 97 04/01/17 11:02 97.9 F 80 18 132/73 98 Intake and Output 04/01/17 04/02/17 04/02/17 23:59 07:59 15:59 Intake Total 337 / 337 300 / 300 Output Total 400 / 400 1600 / 1600 Balance -63 / -63 -1300 / -1300 Intake: IV Fluids 97 / 97 Magnesium Sulfate 1 GM In 97 / 97 Dextrose 5% 100 ML @ 100 mls/hr IVPB ONCE ONE Rx# :[id number] Oral 240 / 240 300 / 300 Output: Urine 400 / 400 1600 / 1600 Other: Meal Dinner Percent of Meal Consumed 50% Weight 62.3 kg Patient Weight 04/02/17 23:59 Weight 62.3 kg - General Appearance General appearance: Present: well-developed, well-nourished, appears started age EENT: Present: PERRL, mucous membranes moist Neck: Present: no JVD, no carotid bruit, supple Respiratory: Present: clear Cardiology: Present: no murmurs, no edema, regular rate, regular rhythm, normal S1, normal S2 Gastrointestinal: Present: normoactive bowel sounds, no tenderness, no guarding Integumentary: Present: no rash, warm and dry Additional Comments: varicose veins over bilateral ankles Neurologic: Present: no focal deficit, alert and oriented x3, strength 5/5, CN 3 -12 intact Musculoskeletal: Present: no deformities, no erythema, no cyanosis, no clubbing Psychiatric: Present: mood/affect appropriate, cooperative - Lab 04/01/17 04:04 05/17/17 04:00 Most recent lab results Calcium 8.4 mg/dL (8.6-10.8) L 04/02/17 04:00 Phosphorus 3.3 mg/dL (2.3-4.7) 03/31/17 04:37 Magnesium 1.8 mg/dL (1.6-2.6) 04/02/17 04:00 Urine Sodium 72.0 mEq/L 03/31/17 12:45 Consult Discharge Plan - Plan Referrals: Phuc Lemus MD [Primary Care Provider] - 04/08/17 10:30 am
[2017-04-02 12:15] VITALS: BP 139/75
--- NOTE | 2017-04-02 13:45 | Discharge Summary ---
Date of Encounter: 04/02/17 Time of Encounter: 13:42 - Discharge Diagnosis (1) Near syncope Priority: Primary Status: Acute (2) Hyponatremia Priority: Primary Status: Acute Comments: severe hyponatremia with Na at 118 (3) Hypertension Priority: Primary Status: Chronic Qualifiers: Hypertension type: essential hypertension Qualified Code(s): I10 - Essential (primary) hypertension (4) Hypothyroidism Priority: Secondary Status: Chronic Qualifiers: Hypothyroidism type: unspecified Qualified Code(s): E03.9 - Hypothyroidism , unspecified (5) Hypokalemia Priority: Primary Status: Resolved - Discharge Medications Prescriptions: hydrALAZINE [HydrALAZINE] 50 mg PO Q8HR #180 tablet Carvedilol [Coreg] 12.5 mg PO BIDWM #60 tablet Sodium Chloride 1 gm PO TID #90 tablet Home Medications: Aspirin [Lo-Dose Aspirin EC] 81 mg PO DAILY 03/31/17 [History] Atorvastatin Calcium [Lipitor] 80 mg PO HS 03/31/17 [History] Calcium Carbonate [Calcium] 500 mg PO DAILY 03/31/17 [History] Chlorthalidone 25 mg PO DAILY 03/31/17 [History] Donepezil [Aricept] 10 mg PO HS 03/31/17 [History] Levothyroxine [Synthroid] 50 mcg PO 0630 03/31/17 [History] Meclizine HCl [Verticalm] 25 mg PO DAILY PRN 03/31/17 [History] Mv-Mn/FA/Vit K/Lycop/Lut/Coq10 [Daily Multivitamin Capsule] 1 each PO DAILY [History] Omeprazole [PriLOSEC] 40 mg PO DAILY 03/31/17 [History] traZODone [TraZODone] 50 mg PO HS 03/31/17 [History] Carvedilol [Coreg] 12.5 mg PO BIDWM #60 tablet 04/02/17 [Rx] Omeprazole [PriLOSEC] 20 mg PO DAILY@0730 capsule. 04/02/17 [Rx] Sodium Chloride 1 gm PO TID #90 tablet 04/02/17 [Rx] hydrALAZINE [HydrALAZINE] 50 mg PO Q8HR #180 tablet 04/02/17 [Rx] Allergies/Adverse Reactions: Allergies Penicillins Allergy (Verified 03/31/17 09:10) Rash codeine Adverse Reaction (Verified 03/31/17 09:10) Vomiting Procedures/tests Complete & Pending: Procedures Performed prior 72 hours Category Date Time Status EKG [ECG 12 lead ECG] [ECG] Stat Y 04/02/17 08:56 Completed Date of admission: 03/31/17 10:22 Primary care physician: Phuc Lemus, - Patient Status Disposition: Home, Self-Care Condition: Good Functional capacity at discharge: independent ambulation - Discharge Instructions Instructions: Hydralazine (By mouth), Carvedilol (By mouth), Sodium Chloride ( By mouth), Hyponatremia (DC), Syncope (DC) Follow Up With: Don Maurice DO [Partnered Physician] - 05/14/17 1:10 pm Phuc Lemus MD [Primary Care Provider] - 04/08/17 10:30 am Additional Instructions: Please check your blood pressure twice daily (same time in the morning and evening). WRITE NUMBERS AND BRING RECORD TO DOCTOR'S APPOINTMENT. PLEASE HAVE A BLOOD TEST NEXT WEEK AND FOLLOW IN THE NEPHROLOGY CLINIC. - Diet and Activity Activity: resume usual activities as tolerated Diet: other (fluid restriction 1.2 Liters a day.) Interval History: patient has no complaints. she is eager to go home. she is eating well. Hospital course: Ms. Cunningham is a 77 year old female with past medical history of hypertension and hypothyroidism who presented to our ED because of generalized weakness and falling at home for the past 3 days. The day of admission she had an episode of lightheadedness after standing up so she came to our emergency department. She denied any loss of consciousness. No chest pain. No shortness of breath. No diaphoresis. No pain at all. She was found to have a sodium of 118. No nausea. No vomiting. No diarrhea. She has a good oral intake at home, she cooks regularly and eats 4 meals daily and drinks adequate amounts of fluids. No history of alcohol abuse. No new medications. She takes chlorthalidone and Cymbalta at home. She was started on fluid restriction 1.2 L a day, oral sodium tablets 1 g 3 times a day and her home dose of chlorthalidone and Cymbalta were discontinued. Sodium trended up adequately and was 129 at discharge. Patient was ambulating and eating well at discharge. She was started on Coreg and oral hydralazine for hypertension. She had an episode of SVT, very short, that resolved spontaneously. Normal potassium and magnesium. Her Coreg was increased to 12.5. EKG showed normal sinus rhythm. Patient was completely asymptomatic. PLAN: Follow-up in the nephrology clinic in one week. BMP in 1 week. Patient to continue taking sodium tablets and fluid restriction. Follow-up with primary care physician for hypertension and consider doing an echocardiogram as outpatient. - Time Spent with Patient Total time spent providing and/or coordinating discharge services: - Constitutional Vitals: Temp Pulse Resp BP Pulse Ox 98.7 F 95 16 139/75 96 04/02/17 12:10 04/02/17 12:10 04/02/17 12:10 04/02/17 12:10 04/02/17 12:10 General appearance: Present: cooperative, A&O X 3, pleasant, no acute distress, answers questions appropriately - Neck Neck exam general surgery: Present: supple, trachea midline. Absent: lymphadenopathy - Respiratory Respiratory exam: Present: CTAB - Cardiovascular Cardiovascular exam: Present: RRR - GI/Abdominal GI/Abdominal exam: Present: normal bowel sounds, soft. Absent: distended, tenderness - Extremities Exam Extremities exam: Absent: pedal edema - Back Exam Back exam: Absent: CVA tenderness (L), CVA tenderness (R) - Neurological Exam Neurological exam: Present: alert, oriented X3, no focal deficits, strengths equal and symetr throughout. Absent: facial droop, speech deficit - Skin Skin exam: Absent: rash
--- NOTE | 2017-04-03 10:45 | Electrocardiograph Report ---
[place] [id number] Test Date: 2017-04-02 Pat Name: [facility] Department: 110 Room: 2N14 Gender: F [employer] Operator: BERNARDA : 1940 Requested By: Yusra Nielson Order Number: [id number] Reading MD: Ricardo Morejon MD Measurements Intervals [place] Rate: 77 P: 0 WA: 192 QRS: 34 QRSD: 96 T: 10 QT: 388 QTc: 420 Interpretive Statements SINUS RHYTHM Electronically Signed On 04-03-2017 10:43:28 EDT by Ricardo Morejon MD
== END 2017-04-02 15:15 | disposition home or self-care (01) | DRG 641 ==
LOC: 2NNU 18:36 → EMEROO 18:36 → 2NNU 22:37
PROVIDERS: ADMIT Hospitalist; ATTEND Internal Medicine

== ENCOUNTER 2017-04-04 11:52 | Observation (INO) ==
[2017-04-04] MEDS ORDERED: Ondansetron 4 MG/2 ML VIAL IVP ONE (12:14)
[2017-04-04] MEDS ORDERED: 0.9 % Sodium Chloride 500 ML IVC ONE (12:14)
--- NOTE | 2017-04-04 12:21 | Emergency Department Note ---
Disposition Clinical Impression: Elevated troponin, ACS (acute coronary syndrome) Abdominal pain Qualifiers: Abdominal location: generalized Qualified Code(s): R10.84 - Generalized abdominal pain Disposition: Admitted As Inpatient Condition: Good Referrals: Phuc Lemus MD [Primary Care Provider] - Forms: Work/School Release, ED Satisfaction Letter Time of Disposition: 15:03 General Adult HPI - General Chief complaint: ED Abdominal Pain Stated complaint: Abdominal pain, N/V Time Seen by Provider: 04/04/17 12:01 Source: patient, family Limitations: no limitations Nursing Notes Reviewed: Yes Vital Signs Reviewed: Yes - History of Present Illness HPI Narrative: 77-year-old female history of distant appendectomy presents with 1 day increasing abdominal pain distention and loss of appetite. Took a laxative last night with no effect. Was seen a week ago for potassium problems and had a heparin injection in her stomach". Patient said that she just has increasing abdominal pain and loss of appetite. Several episodes of nonbilious nonbloody vomiting. Currently denies chest pain shortness of breath fever chills headache photophobia skin rash O contact exotic food or recent travel. Patient here for further evaluation. Pain Scale: 7 - Related Data Home Medications Medication Instructions Recorded Confirmed Aspirin [Lo-Dose Aspirin EC] 81 mg PO DAILY 03/31/17 04/04/17 Atorvastatin Calcium [Lipitor] 80 mg PO HS 03/31/17 04/04/17 Calcium Carbonate [Calcium] 500 mg PO DAILY 03/31/17 04/04/17 Chlorthalidone 25 mg PO DAILY 03/31/17 04/04/17 Donepezil [Aricept] 10 mg PO HS 03/31/17 04/04/17 Levothyroxine [Synthroid] 50 mcg PO 0630 03/31/17 04/04/17 Meclizine HCl [Verticalm] 25 mg PO DAILY PRN 03/31/17 04/04/17 Mv-Mn/FA/Vit K/Lycop/Lut/Coq10 1 each PO DAILY 03/31/17 04/04/17 [Daily Multivitamin Capsule] Omeprazole [PriLOSEC] 40 mg PO DAILY 03/31/17 04/04/17 traZODone [TraZODone] 50 mg PO HS 03/31/17 04/04/17 Carvedilol [Coreg] 6.25 mg PO BIDWM 04/04/17 04/04/17 DULoxetine [Cymbalta] 60 mg PO BID 04/04/17 04/04/17 Oxybutynin [Ditropan] 5 mg PO BID 04/04/17 04/04/17 Potassium Chloride [Klor-Con 10] 10 meq PO BID 04/04/17 04/04/17 Previous Rx's Medication Instructions Recorded Sodium Chloride 1 gm PO TID #90 tablet 04/02/17 hydrALAZINE [HydrALAZINE] 50 mg PO Q8HR #180 tablet 04/02/17 Allergies Allergy/AdvReac Type Severity Reaction Status Date / Time Penicillins Allergy Rash Verified 04/04/17 11:54 codeine AdvReac Vomiting Verified 04/04/17 11:54 All systems ED: reviewed and negative except as stated. Constitutional: Reports: weakness Gastrointestinal: Reports: abdominal pain, nausea, vomiting Past Medical History - Past Medical History Attestation: Yes The following information was validated with the patient. Source: patient, obtained from family Medical history: Reports: hyperlipidemia, hypertension, thyroid disease Psychiatric history: Reports: depression - Social History Smoking Status: Never smoker Smokeless Tobacco Status: No Alcohol use: Reports: none Drug use: Reports: none Physical Exam - General Limitations: no limitations General appearance: alert, in distress - Head Head exam: atraumatic, normocephalic - Eye Eye exam: Present: normal appearance, PERRL, EOMI - ENT ENT exam: normal exam, normal oropharynx - Neck Neck exam: Present: normal inspection, full ROM - Chest Chest inspection: Present: normal inspection, symmetric chest wall rise - Respiratory Respiratory exam: Present: normal lung sounds bilaterally, respiratory distress - Cardiovascular Cardiovascular exam: Present: regular rate, normal rhythm - Abdominal Exam Abdominal exam: Present: soft, tenderness, distention, guarding. Absent: rebound Abdominal tenderness: Present: mild - Extremities Exam Extremities exam: Present: normal inspection, full ROM - Expanded Lower Extremity Exam Neurovascular/Tendon exam: Present: normal capillary refill Gait: observed and normal - Back Exam Back exam: Present: normal inspection, full ROM - Neurological Exam Neurological exam: Present: alert, oriented X3, CN II-XII intact - Psychiatric Psychiatric exam: Present: normal affect, normal mood - Skin Skin exam: Present: warm, dry, intact Course - Reevaluation(s) Reevaluation #1: Abdomen slightly distended decreased bowel sounds diffusely tender mildly guarding but no rebound. Patient getting labs and abdominopelvic CT IV fluids anti-medics EKG. SPO2 in the differential as well as other intra-abdominal pathologies. Disposition pending. Time: 12:24 Reevaluation #2: Notified by lab critical elevated troponin 0.07. Patient has normal renal function. It patient's last troponin when she was admitted 2 days ago for hypernatremia was 0.01. She was admitted for hypernatremia 118 her sodium was normal 132. Abdominopelvic CT is pending. Patient will need to be admitted for elevated troponin rule acute coronary syndrome. Provided 45 minutes critical care service for this patient. Disposition pending. Time: 13:38 Reevaluation #3: Discussed the case with the hospitalist Dr. Christie, patient accepted for admission in stable condition. Patient and spouse in the room so informed. Patient admitted in stable condition. She denies being on any recent antibiotics she had a large loose bowel movement however she is feeling little bit better at this time. Time: 15:02 Vital Signs Temperature 97.9 F 04/04/17 11:54 Pulse Rate 85 04/04/17 11:54 Respiratory Rate 18 04/04/17 11:54 Blood Pressure 135/81 04/04/17 11:54 O2 Sat by Pulse Oximetry 98 04/04/17 11:54 Temperature 97.9 F 04/04/17 11:54 Pulse Rate 98 04/04/17 14:18 Respiratory Rate 20 04/04/17 14:18 Blood Pressure 162/85 04/04/17 12:43 O2 Sat by Pulse Oximetry 94 04/04/17 14:18 Oxygen Delivery Oxygen Delivery Room Air Medical Decision Making - Medical Records Medical records reviewed: Yes I reviewed the patient's medical records. - Lab Data Lab results reviewed: Yes I reviewed the patient's lab results. Result diagrams: 04/04/17 12:32 04/04/17 12:32 Lab Results 04/04/17 04/04/17 04/04/17 Range/Units 12:32 12:32 12:34 WBC 19.6 H D (4.3-11.1) K/mcL RBC 4.48 (3.82-4.97) M/mcL Hgb 14.1 (11.5-15.4) g/dL Hct 39.6 (35.3-44.9) % MCV 88.4 (83.0-100.0) fL MCH 31.5 (28.0-33.3) pg MCHC 35.6 H (31.6-35.5) g/dL RDW 12.3 (11.5-14.5) % Plt Count 291 (140-400) K/mcL MPV 8.2 L (9.4-12.4) fL Immature Gran % 0.7 (0-4) % Seg Neutrophils % 80.1 % Lymphocytes % 7.4 % Monocytes % 10.1 % Eosinophils % 1.5 % Basophils % 0.2 % Neutrophils # 15.7 H (1.6-8.9) K/mcL Lymphocytes # 1.5 (0.6-4.6) K/mcL Monocytes # 2.0 H (0.0-1.3) K/mcL Eosinophils # 0.3 (0.0-0.6) K/mcL Basophils # 0.0 (0.0-0.2) K/mcL Sodium 132 L (136-145) mEq/L Potassium 3.2 L (3.5-4.5) mEq/L Chloride 98 (98-109) mEq/L Carbon Dioxide 22 (19-29) mEq/L BUN 13 (7-20) mg/dL Creatinine 0.76 (0.57-1.11) mg/dL Est GFR ( Amer) > 60 (> 60) Est GFR (Non-Af Amer) > 60 (> 60) BUN/Creatinine Ratio 17 (6-26) Glucose 125 H (70-99) mg/dL Calculated Osmolality 276 L (280-300) Calcium 9.0 (8.6-10.8) mg/dL Total Bilirubin 0.8 (0.2-1.2) mg/dL Direct Bilirubin 0.3 (0.0-0.5) mg/dL Indirect Bilirubin 0.5 (0.0-1.2) mg/dL AST 33 (5-34) Units/L ALT 33 (0-55) Units/L Alkaline Phosphatase 77 (38-126) Units/L Troponin I 0.07 H* (0-0.03) ng/mL Serum Total Protein 6.6 (6.0-8.3) g/dL Albumin 3.3 L (3.5-5.0) g/dL Globulin 3.3 (2.4-3.5) g/dL Albumin/Globulin Ratio 1.0 L (1.1-2.2) Amylase 81 (25-125) Units/L Lipase 67 (8-78) Units/L Urine Color (Yellow) Urine Clarity (Clear) Urine pH (5.0-8.0) pH Units Ur Specific [place] (1.010-1.025) Urine Protein (Neg-Trace) mg/dL Urine Glucose (UA) (Normal) mg/dL Urine Ketones (Negative) mg/dL Urine Blood (Negative) Urine Nitrite (Negative) Urine Bilirubin (Negative) Urine Urobilinogen (Normal) mg/dL Ur Leukocyte Esterase (Negative) Ur Culture Indicated? (NO) 04/04/17 Range/Units 14:19 WBC (4.3-11.1) K/mcL RBC (3.82-4.97) M/mcL Hgb (11.5-15.4) g/dL Hct (35.3-44.9) % MCV (83.0-100.0) fL MCH (28.0-33.3) pg MCHC (31.6-35.5) g/dL RDW (11.5-14.5) % Plt Count (140-400) K/mcL MPV (9.4-12.4) fL Immature Gran % (0-4) % Seg Neutrophils % % Lymphocytes % % Monocytes % % Eosinophils % % Basophils % % Neutrophils # (1.6-8.9) K/mcL Lymphocytes # (0.6-4.6) K/mcL Monocytes # (0.0-1.3) K/mcL Eosinophils # (0.0-0.6) K/mcL Basophils # (0.0-0.2) K/mcL Sodium (136-145) mEq/L Potassium (3.5-4.5) mEq/L Chloride (98-109) mEq/L Carbon Dioxide (19-29) mEq/L BUN (7-20) mg/dL Creatinine (0.57-1.11) mg/dL Est GFR ( Amer) (> 60) Est GFR (Non-Af Amer) (> 60) BUN/Creatinine Ratio (6-26) Glucose (70-99) mg/dL Calculated Osmolality (280-300) Calcium (8.6-10.8) mg/dL Total Bilirubin (0.2-1.2) mg/dL Direct Bilirubin (0.0-0.5) mg/dL Indirect Bilirubin (0.0-1.2) mg/dL AST (5-34) Units/L ALT (0-55) Units/L Alkaline Phosphatase (38-126) Units/L Troponin I (0-0.03) ng/mL Serum Total Protein (6.0-8.3) g/dL Albumin (3.5-5.0) g/dL Globulin (2.4-3.5) g/dL Albumin/Globulin Ratio (1.1-2.2) Amylase (25-125) Units/L Lipase (8-78) Units/L Urine Color Dark Yellow (Yellow) Urine Clarity Clear (Clear) Urine pH 6.5 (5.0-8.0) pH Units Ur Specific [place] 1.026 H (1.010-1.025) Urine Protein Negative (Neg-Trace) mg/dL Urine Glucose (UA) Normal (Normal) mg/dL Urine Ketones Negative (Negative) mg/dL Urine Blood Negative (Negative) Urine Nitrite Negative (Negative) Urine Bilirubin Negative (Negative) Urine Urobilinogen Normal (Normal) mg/dL Ur Leukocyte Esterase Negative (Negative) Ur Culture Indicated? NO (NO) - Radiology Data Radiology results reviewed: Yes I reviewed the patient's radiology results. - EKG Data EKG #1 EKG attestation: Yes I reviewed and interpreted this EKG. EKG results narrative: Twelve-lead EKG: Red without cardiology shows sinus rhythm at 83 bpm. Old inferior infarct, normal PRQS and QT corrected. No acute ischemic changes noted. No acute changes when compared to prior EKG dated 04/02/2017.
[2017-04-04 12:40] LABS: Basophils % 0.2 %; Eosinophils # 0.3 K/mcL (0.0-0.6); Eosinophils % 1.5 %; Hematocrit 39.6 % (35.3-44.9); Hemoglobin 14.1 g/dL (11.5-15.4); Immature Granulocytes % 0.7 % (0-4); Lymphocytes # 1.5 K/mcL (0.6-4.6); Lymphocytes % 7.4 %; Mean Corpuscular HGB Conc 35.6 g/dL (31.6-35.5); Mean Corpuscular Hemoglobin 31.5 pg (28.0-33.3); Mean Corpuscular Volume 88.4 fL (83.0-100.0); Mean Platelet Volume 8.2 fL (9.4-12.4); Monocytes % 10.1 %; Neutrophils # 15.7 K/mcL (1.6-8.9); Platelet Count 291 K/mcL (140-400); Red Blood Count 4.48 M/mcL (3.82-4.97); Red Cell Distribution Width 12.3 % (11.5-14.5); Segmented Neutrophils % 80.1 %
[2017-04-04 13:07] LABS: Alanine Aminotransferase 33 Units/L (0-55); Albumin 3.3 g/dL (3.5-5.0); Alkaline Phosphatase 77 Units/L (38-126); Amylase 81 Units/L (25-125); Aspartate Amino Transferase 33 Units/L (5-34); BUN/Creatinine Ratio 17 (6-26); Bilirubin,Direct 0.3 mg/dL (0.0-0.5); Bilirubin,Indirect 0.5 mg/dL (0.0-1.2); Bilirubin,Total 0.8 mg/dL (0.2-1.2); Blood Urea Nitrogen 13 mg/dL (7-20); Carbon Dioxide 22 mEq/L (19-29); Chloride 98 mEq/L (98-109); Globulin 3.3 g/dL (2.4-3.5); Glucose 125 mg/dL (70-99); Lipase 67 Units/L (8-78); Osmolality,Calculated 276 (280-300); Potassium 3.2 mEq/L (3.5-4.5); Sodium 132 mEq/L (136-145); Total Protein 6.6 g/dL (6.0-8.3); eGFR For African Americans > 60 (> 60); eGFR For Non-African Americans > 60 (> 60)
[2017-04-04 14:30] LABS: Bilirubin,Urine Negative (Negative); Blood,Urine Negative (Negative); Clarity,Urine Clear (Clear); Color,Urine Dark Yellow (Yellow); Glucose,Urine (UA) Normal (Normal); Ketones,Urine Negative (Negative); Leukocyte Esterase,Urine Negative (Negative); Nitrite,Urine Negative (Negative); PH,Urine 6.5 pH Units (5.0-8.0); Protein,Urine Negative (Neg-Trace); Specific Gravity,Urine 1.026 (1.010-1.025); Urobilinogen,Urine Normal (Normal)
[2017-04-04] MEDS ORDERED: Ondansetron 4 MG/2 ML VIAL IVP PRN (15:42)
[2017-04-04] MEDS ORDERED: Naloxone 0.4 MG/ML INJ IVP PRN (15:42)
[2017-04-04] MEDS ORDERED: 0.9 % Sodium Chloride 1,000 ML IVC SCH (15:45)
[2017-04-04] MEDS ORDERED: Potassium Chloride 40 MEQ, Lidocaine 1% 2 ML in D5% in Water 500 ML IVPB ONE (15:51)
--- NOTE | 2017-04-04 16:01 | Internal Med History&Physical ---
<Sherita Patrick M - Last Filed: 04/04/17 17:20> Date of Encounter: 04/04/17 Time of Encounter: 15:57 Assessment and Plan (1) Colitis Current visit: Yes Status: Acute Patient was feeling constipated and took a laxative last evening. Abdominal pain developed overnight, this morning she developed nausea and vomiting. CT of abdomen/pelvis shows mild acute wall thickening and inflammatory fat stranding of distal descending colon most consistent with either mild diverticulitis or focal infectious or inflammatory colitis, and large amount of stool throughout the colon. WBC count elevated at 19.6. After CT, she had 2 large, loose bowel movements. She did have a recent hospitalization with discharge on 04/02/17. No recent antibiotics. IV fluids 0.9NS at 80mL/hr stool culture contact precautions pending results of stool culture. zofran PRN for nausea Suspect WBC count is result of constipation and inflammation, will hydrate and give stool softeners. If she worsens clinically, will start antibiotics with Cipro and flagyl. (2) Abdominal pain Current visit: Yes Status: Acute Patient reports she was feeling constipated and took a laxative last evening. Overnight she developed abdominal pain described as constant, cramping. It has been somewhat relieved by her large bowel movements in the ED. CT abd/pelvis showed mild acute wall thickening and inflammatory fat stranding involving the distal descending colon, consistent with either mild diverticulitis or focal infectious or inflammatory colitis. clear liquid diet. IV fluids 0.9NS at 80mL/hr Zofran for nausea. Qualifiers: Abdominal location: left lower quadrant Qualified Code(s): R10.32 - Left lower quadrant pain (3) Diarrhea Current visit: Yes Status: Acute Patient was feeling constipated and took a laxative last evening. Abdominal pain developed overnight, this morning she developed nausea and vomiting. CT of abdomen/pelvis shows mild acute wall thickening and inflammatory fat stranding of distal descending colon most consistent with either mild diverticulitis or focal infectious or inflammatory colitis, and large amount of stool throughout the colon. WBC count elevated at 19.6. After CT, she had 2 large, loose bowel movements. She did have a recent hospitalization with discharge on 04/02/17. No recent antibiotics. Suspect she is having diarrhea around her constipated stool burden. will hydrate and give stool softeners. clear liquid diet IV fluids 0.9NS at 80mL/hr stool culture contact precautions pending results of stool culture. Qualifiers: Diarrhea type: unspecified type Qualified Code(s): R19.7 - Diarrhea, unspecified (4) Elevated troponin Current visit: Yes Status: Acute Patient denies any chest pain or shortness of breath. Troponin of 0.07 today is elevated from recent previous troponin of 0.01. EKG shows no acute changes. 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 serial troponins echocardiogram in the morning. (5) Nausea & vomiting Current visit: Yes Status: Acute Patient reports nausea and vomiting started when she woke this morning after experiencing abdominal pain and cramping. Emesis is described as non-bilious, non-bloody. IV fluids 0.9NS at 80mL/hr clear liquid diet Zofran PRN for nausea Qualifiers: Vomiting type: unspecified Vomiting Intractability: non-intractable Qualified Code(s): R11.2 - Nausea with vomiting, unspecified (6) Hyponatremia Current visit: Yes Status: Acute Sodium of 132 today. Recent hospitalization (discharged 04/02/17) for hyponatremia of 118. During previous hospitalization, chlorthalidone was stopped, cymbalta was held, IV fluids given, free water restriction, and salt tablets TID. Hold Cymbalta continue salt tablets TID IV fluids 0.9NS at 80mL/hr check chemistry in the morning. (7) Hypokalemia Current visit: Yes Status: Acute Potasium of 3.2. KCL 40mEq IVPB ordered recheck chemistry in the morning. Once tolerating PO, restart home dose of potassium supplement. (8) DVT prophylaxis Current visit: No Status: Acute anti-embolic stockings lovenox 40mg SQ daily Internal Medicine - H&P: HPI Chief complaint: abdominal pain, nausea and vomiting Admitted From: Emergency Dept Plans for Post Hospital Care: Home History of present illness: Ms. Cunningham is a 77 year old female with hypertension, hyperlipidemia, hypothyroid , presents to the emergency department today with complaints of abdominal pain, nausea and vomiting. Patient was discharged 2 days ago after being admitted with hyponatremia. She has been feeling constipated the last few days, and took a laxative last night. Overnight she developed abdominal pain that she describes as constant, cramping, stabbing, worse in the left lower quadrant this morning she developed nausea and vomiting,the emesis is nonbilious and nonbloody. During her time in the emergency department she developed diarrhea and had 2 large bowel movements described as loose and watery. She reports her abdominal pain is somewhat relieved but still there after these bowel movements. She denies any headache, chest pain, palpitations, shortness of breath. She reports feeling chilled, but denies fever or sweats. Evaluation in emergency department revealed elevated white blood cell count of 19.6, elevated troponin of 0.07. She was mildly hyponatremic with sodium of 132, though this is much improved from her previous hospitalization where she was admitted with sodium of 118. She is hypokalemic with potassium of 3.2. Her EKG showed no acute changes from previous. CT of the abdomen and pelvis showed mild acute wall thickening and inflammatory fat stranding involving the distal descending colon consistent with either mild diverticulitis or focal infectious or inflammatory colitis, no evidence of perforation, free air, abscess or obstruction. CT also showed large amount of stool throughout the colon suggesting chronic constipation. On exam, patient is alert and oriented, in no acute distress. Heart has regular rate and rhythm, lungs are clear bilaterally to auscultation. Abdomen is soft, tender to palpation in the left lower quadrant, normal bowel sounds. Past Med Surg Social Fam HX - Past Medical History Medical history: hyperlipidemia, hypertension, thyroid disease Psychiatric history: depression - Past Surgical History Surgical History: appendectomy, hysterectomy, knee replacement - Social History Smoking Status: Never smoker Smokeless Tobacco Status: No Alcohol use: none Drug use: none - Family History Brother Hx Family Cardiac Disorders: Yes (CABG) Internal Medicine - H&P: Meds Aspirin [Lo-Dose Aspirin EC] 81 mg PO DAILY 03/31/17 [History] Atorvastatin Calcium [Lipitor] 80 mg PO HS 03/31/17 [History] Calcium Carbonate [Calcium] 500 mg PO DAILY 03/31/17 [History] Chlorthalidone 25 mg PO DAILY 03/31/17 [History] Donepezil [Aricept] 10 mg PO HS 03/31/17 [History] Levothyroxine [Synthroid] 50 mcg PO 0630 03/31/17 [History] Meclizine HCl [Verticalm] 25 mg PO DAILY PRN 03/31/17 [History] Mv-Mn/FA/Vit K/Lycop/Lut/Coq10 [Daily Multivitamin Capsule] 1 each PO DAILY [History] Omeprazole [PriLOSEC] 40 mg PO DAILY 03/31/17 [History] traZODone [TraZODone] 50 mg PO HS 03/31/17 [History] Sodium Chloride 1 gm PO TID #90 tablet 04/02/17 [Rx] hydrALAZINE [HydrALAZINE] 50 mg PO Q8HR #180 tablet 04/02/17 [Rx] Carvedilol [Coreg] 6.25 mg PO BIDWM 04/04/17 [History] DULoxetine [Cymbalta] 60 mg PO BID 04/04/17 [History] Oxybutynin [Ditropan] 5 mg PO BID 04/04/17 [History] Potassium Chloride [Klor-Con 10] 10 meq PO BID 04/04/17 [History] Allergies Penicillins Allergy (Verified 04/04/17 11:54) Rash codeine Adverse Reaction (Verified 04/04/17 11:54) Vomiting All Systems PM: A 10-system review of systems was performed and is negative for pertinent findings except as documented above in the HPI. - Constitutional Constitutional: chills, no fever(s), no night sweats - EENT Eyes: no change in vision, no discharge, no pain, no photophobia Ears: no ear discharge, no ear pain, no tinnitus Nose, mouth and throat: no dysphagia, no nasal discharge, no neck pain, no sore throat - Cardiovascular Cardiovascular ROS IM: no chest pain, no diaphoresis, no dyspnea, no lightheadedness, no palpitations, no syncope - Respiratory Respiratory: no cough, no dyspnea, no wheezing, no excessive phlegm production - Gastrointestinal Gastrointestinal: abdominal pain, constipation, cramping, diarrhea, nausea, vomiting, no hematemesis, no hematochezia, no melena - Genitourinary Genitourinary: no change in urinary stream, no dysuria, no flank pain, no hematuria - Musculoskeletal Musculoskeletal ROS IM: no numbness, no tingling - Integumentary Integumentary IM: no rash, no unusual bruising - Neurological Neurological ROS: no confusion, no convulsions, no focal weakness, no numbness, no tingling, no tremor(s) - Hematologic/Lymphatic Hematologic/Lymphatic: no easy bruising - Constitutional Vitals: Temp Pulse Resp BP Pulse Ox 97.9 F 90 18 146/81 94 04/04/17 11:54 04/04/17 15:04 04/04/17 15:04 04/04/17 15:04 04/04/17 15:04 General appearance: Present: A&O X 3, pleasant, no acute distress - Head Head exam: Present: atraumatic, normocephalic - Eye Eye exam: Present: PERRL, conjuntiva pink, sclera anicteric Pupils: Present: PERRL - Neck Neck exam general surgery: Present: supple, trachea midline. Absent: lymphadenopathy - Respiratory Respiratory exam: Present: CTAB. Absent: accessory muscle use, rales, rhonchi, wheezes - Cardiovascular Cardiovascular exam: Present: RRR, +S1, +S2. Absent: diastolic murmur, gallop, rubs, systolic murmur - GI/Abdominal GI/Abdominal exam: Present: normal bowel sounds, soft, tenderness (LLQ), no peritoneal signs. Absent: distended - Extremities Exam Extremities exam: Present: warm, radial pulses palpable and symetrical. Absent : calf tenderness, cyanotic, pedal edema - Neurological Exam Neurological exam: Present: CN II-XII intact, oriented X3, no focal deficits. Absent: facial droop, speech deficit - Skin Skin exam: Present: dry, intact Internal Med - H&P Results - Labs CBC & Chem 7: 04/04/17 12:32 04/04/17 12:32 Labs: Short CBC 04/04/17 Range/Units 12:32 WBC 19.6 H D (4.3-11.1) K/mcL Hgb 14.1 (11.5-15.4) g/dL Hct 39.6 (35.3-44.9) % Plt Count 291 (140-400) K/mcL Neutrophils # 15.7 H (1.6-8.9) K/mcL BMP 04/04/17 12:32 Sodium 132 L Potassium 3.2 L Chloride 98 Carbon Dioxide 22 BUN 13 Creatinine 0.76 Glucose 125 H Calcium 9.0 Cardiac Enzymes 04/04/17 Range/Units 12:34 Troponin I 0.07 H* (0-0.03) ng/mL Liver Function 04/04/17 Range/Units 12:32 Total Bilirubin 0.8 (0.2-1.2) mg/dL Direct Bilirubin 0.3 (0.0-0.5) mg/dL AST 33 (5-34) Units/L ALT 33 (0-55) Units/L Alkaline Phosphatase 77 (38-126) Units/L Albumin 3.3 L (3.5-5.0) g/dL Urine 04/04/17 Range/Units 14:19 Urine Color Dark Yellow (Yellow) Urine Clarity Clear (Clear) Urine pH 6.5 (5.0-8.0) pH Units Ur Specific [place] 1.026 H (1.010-1.025) Urine Protein Negative (Neg-Trace) mg/dL Urine Glucose (UA) Normal (Normal) mg/dL - Impressions ITS Impressions Abdomen/Pelvis CT 04/04/17 12:14 IMPRESSION: 1. Mild acute wall thickening and inflammatory fat stranding involving the distal descending colon within the left lower quadrant, most consistent with either mild diverticulitis or a focal infectious or inflammatory colitis. However, there is no evidence of perforation, free air, abscess, or obstruction. 2. Large amount of stool throughout the colon may suggest chronic constipation. 3. Cholelithiasis. 4. Moderate hiatal hernia. 5. Age-indeterminate wedge compression fracture of T12, unchanged from 03/30/2017. If there is a history of acute lower thoracic back pain, consider a dedicated follow-up thoracic MRI to evaluate the acuity of this abnormality. D/ / 04/04/2017 14:37:34 Carl Shea MD / [email or web address] Interpreting Provider: Carl Shea MD - Diagnostic Studies CT scan - abdomen Additional comments: Abdomen/Pelvis CT 04/04/17 12:14 IMPRESSION: 1. Mild acute wall thickening and inflammatory fat stranding involving the distal descending colon within the left lower quadrant, most consistent with either mild diverticulitis or a focal infectious or inflammatory colitis. However, there is no evidence of perforation, free air, abscess, or obstruction. 2. Large amount of stool throughout the colon may suggest chronic constipation. 3. Cholelithiasis. 4. Moderate hiatal hernia. 5. Age-indeterminate wedge compression fracture of T12, unchanged from 03/30/2017. If there is a history of acute lower thoracic back pain, consider a dedicated follow-up thoracic MRI to evaluate the acuity of this abnormality. D/ / 04/04/2017 14:37:34 Carl Shea MD / [facility] Interpreting Provider: Carl Shea MD <Constantin Christie - Last Filed: 04/04/17 18:18> Date of Encounter: 04/04/17 Internal Medicine - H&P: HPI History of present illness: Ms. Cunningham is a 77 year old female All Systems PM: A 10-system review of systems was performed and is negative for pertinent findings except as documented above in the HPI. - Constitutional Vitals: Temp Pulse Resp BP Pulse Ox 98.7 F 105 18 137/73 96 04/04/17 17:32 04/04/17 17:32 04/04/17 17:32 04/04/17 17:32 04/04/17 17:32 Internal Med - H&P Results - Labs CBC & Chem 7: 04/04/17 12:32 04/04/17 12:32 - Attending Attestation I examined this patient and my medical decision-making was reviewed with Ms. Patrick. I agree with the documented findings, disposition and treatment plan as described except to the extent set forth below. Briefly, 77 yo CF who was just discharged 2 days ago returned due to sudden onset abd. pain, N & V. Abd. pain better after having 2 massive BMs in the ER today. Exam reveals diffuse abdominal tenderness with rebound tenderness present. No guarding or rigidity. No organomegaly appreciated. Bowel sounds present. Laboratory data reviewed. Patient will be admitted to the hospital with inpatient status. I expect the patient to be in the hospital for at least 2 midnights. Likely discharge disposition is back home. Patient will be given intravenous fluids. Patient has sepsis with white count of 19,000 and tachycardia. Will obtain lactic acid level. Patient will be placed on antibiotics to cover for colitis/ diverticulitis. Liquid diet. Monitor progression. Further management to depend on patient's clinical course. Stool softeners. Elevated troponin-cycle cardiac enzymes. Echocardiogram during prior was it did not reveal any wall motion abnormalities. MANDEEP Keller
[2017-04-04] MEDS ORDERED: Sennosides 8.6 MG TABLET PO PRN (17:16)
[2017-04-04] MEDS ORDERED: MetroNIDAZOLE 500 MG/100 ML 500 MG/100 ML BAG IVPB SCH (18:06)
[2017-04-04] MEDS: hydrALAZINE 25 MG TABLET PO SCH (18:38)
[2017-04-04] MEDS: traZODone 50 MG TABLET PO SCH (20:26)
[2017-04-04] MEDS: 0.9 % Sodium Chloride 1,000 ML IVC SCH (20:31)
[2017-04-05] MEDS: hydrALAZINE 25 MG TABLET PO SCH ×4 (00:39→23:32)
[2017-04-05 01:02] LABS: Basophils % 0.1 %; Eosinophils # 0.2 K/mcL (0.0-0.6); Eosinophils % 0.9 %; Hematocrit 35.2 % (35.3-44.9); Hemoglobin 12.6 g/dL (11.5-15.4); Immature Granulocytes % 0.4 % (0-4); Lymphocytes # 2.2 K/mcL (0.6-4.6); Lymphocytes % 11.8 %; Mean Corpuscular HGB Conc 35.8 g/dL (31.6-35.5); Mean Corpuscular Hemoglobin 31.6 pg (28.0-33.3); Mean Corpuscular Volume 88.2 fL (83.0-100.0); Mean Platelet Volume 8.6 fL (9.4-12.4); Monocytes # 2.6 K/mcL (0.0-1.3); Monocytes % 14.2 %; Neutrophils # 13.2 K/mcL (1.6-8.9); Platelet Count 266 K/mcL (140-400); Red Blood Count 3.99 M/mcL (3.82-4.97); Red Cell Distribution Width 12.5 % (11.5-14.5); Segmented Neutrophils % 72.6 %
[2017-04-05 01:20] LABS: BUN/Creatinine Ratio 13 (6-26); Blood Urea Nitrogen 9 mg/dL (7-20); Calcium 8.2 mg/dL (8.6-10.8); Carbon Dioxide 24 mEq/L (19-29); Chloride 100 mEq/L (98-109); Glucose 95 mg/dL (70-99); Osmolality,Calculated 272 (280-300); Potassium 3.3 mEq/L (3.5-4.5); Sodium 132 mEq/L (136-145); eGFR For African Americans > 60 (> 60); eGFR For Non-African Americans > 60 (> 60)
[2017-04-05] MEDS: MetroNIDAZOLE 500 MG/100 ML 500 MG/100 ML BAG IVPB SCH ×3 (06:08→21:35)
[2017-04-05] MEDS: Aspirin Enteric Coated 81 MG Tablet PO SCH (09:00)
[2017-04-05] MEDS: 0.9 % Sodium Chloride 1,000 ML IVC SCH ×2 (09:56→20:16)
--- NOTE | 2017-04-05 16:50 | Internal Med Progress Note ---
Date of Encounter: 04/05/17 Time of Encounter: 11:00 - Assessment and plan (1) Abdominal pain Current Visit: Yes Status: Acute Assessment and plan: She was admitted with abdominal pain, CT scan of the abdomen done in the emergency department, it was consistent with either mild diverticulitis or focal infectious or inflammatory colitis. The patient also had leukocytosis, lactic acid was also elevated initially, it improved afterwards with IV fluids. She was started on broad-spectrum antibiotics, will continue with both Cipro and Flagyl IV. The patient is feeling better now, we will advance diet to full liquids and advance accordingly. Continue fluid and electrolyte monitoring electrolytes and kidney function test on a daily basis. Hypokalemia noted, will continue monitoring. DVT prophylaxis with Lovenox subcutaneously. Mild elevation of troponins, no EKG changes, no chest pain, no acute interventions at this point. Qualifiers: Abdominal location: left lower quadrant Qualified Code(s): R10.32 - Left lower quadrant pain (2) Colitis Current Visit: Yes Status: Acute (3) Elevated troponin Current Visit: Yes Status: Acute (4) Hypokalemia Current Visit: Yes Status: Acute (5) Hyponatremia Current Visit: Yes Status: Acute (6) DVT prophylaxis Current Visit: No Status: Acute - Subjective Interval history: His left first encounter with the patient. The patient was seen and examined at bedside, her grandson was present during this encounter. She is clearly feeling better, denies nausea and vomiting. Denies fever. - Constitutional Vitals: Temp Pulse Resp BP Pulse Ox 98.2 F 87 16 145/73 97 04/05/17 12:36 04/05/17 12:36 04/05/17 12:36 04/05/17 12:36 04/05/17 12:36 General appearance: Present: A&O X 3, pleasant, no acute distress - Head Head exam: Present: atraumatic, normocephalic - Eye Eye exam: Present: PERRL, conjuntiva pink, sclera anicteric Pupils: Present: PERRL - Neck Neck exam general surgery: Present: supple, trachea midline. Absent: lymphadenopathy - Respiratory Respiratory exam: Present: CTAB. Absent: accessory muscle use, rales, rhonchi, wheezes - Cardiovascular Cardiovascular exam: Present: RRR, +S1, +S2. Absent: diastolic murmur, gallop, rubs, systolic murmur - GI/Abdominal GI/Abdominal exam: Present: normal bowel sounds, soft, no peritoneal signs. Absent: distended, tenderness - Extremities Exam Extremities exam: Present: warm, radial pulses palpable and symetrical. Absent : calf tenderness, cyanotic, pedal edema - Neurological Exam Neurological exam: Present: CN II-XII intact, oriented X3, no focal deficits. Absent: pronater drift, facial droop, speech deficit - Skin Skin exam: Present: dry, intact Internal Medicine: Result - Labs CBC & Chem 7: 04/05/17 00:51 04/05/17 00:51 Labs: Short CBC 04/05/17 Range/Units 00:51 WBC 18.2 H (4.3-11.1) K/mcL Hgb 12.6 D (11.5-15.4) g/dL Hct 35.2 L (35.3-44.9) % Plt Count 266 (140-400) K/mcL Neutrophils # 13.2 H (1.6-8.9) K/mcL BMP 04/05/17 00:51 Sodium 132 L Potassium 3.3 L Chloride 100 Carbon Dioxide 24 BUN 9 Creatinine 0.68 Glucose 95 Calcium 8.2 L Cardiac Enzymes 04/04/17 04/05/17 Range/Units 18:59 00:51 Troponin I 0.08 H* 0.07 H* (0-0.03) ng/mL Consult Discharge Plan - Plan Referrals: Phuc Lemus MD [Primary Care Provider] -
[2017-04-05] MEDS: traZODone 50 MG TABLET PO SCH (20:01)
[2017-04-06] MEDS ORDERED: *HR* LORazepam 2 MG/ML VIAL IVP ONE (04:21)
[2017-04-06] MEDS: MetroNIDAZOLE 500 MG/100 ML 500 MG/100 ML BAG IVPB SCH ×3 (05:11→21:16)
[2017-04-06] MEDS: 0.9 % Sodium Chloride 1,000 ML IVC SCH (05:50)
[2017-04-06 06:31] LABS: Basophils % 0.1 %; Eosinophils # 0.4 K/mcL (0.0-0.6); Eosinophils % 4.6 %; Hematocrit 31.8 % (35.3-44.9); Hemoglobin 11.2 g/dL (11.5-15.4); Immature Granulocytes % 0.5 % (0-4); Lymphocytes # 1.7 K/mcL (0.6-4.6); Lymphocytes % 21.5 %; Mean Corpuscular HGB Conc 35.2 g/dL (31.6-35.5); Mean Corpuscular Hemoglobin 31.8 pg (28.0-33.3); Mean Corpuscular Volume 90.3 fL (83.0-100.0); Mean Platelet Volume 8.8 fL (9.4-12.4); Monocytes # 1.3 K/mcL (0.0-1.3); Monocytes % 16.1 %; Neutrophils # 4.6 K/mcL (1.6-8.9); Platelet Count 252 K/mcL (140-400); Red Blood Count 3.52 M/mcL (3.82-4.97); Segmented Neutrophils % 57.2 %
[2017-04-06 06:43] LABS: BUN/Creatinine Ratio 6 (6-26); Calcium 8.1 mg/dL (8.6-10.8); Carbon Dioxide 24 mEq/L (19-29); Chloride 103 mEq/L (98-109); Glucose 139 mg/dL (70-99); Magnesium 1.4 mg/dL (1.6-2.6); Osmolality,Calculated 277 (280-300); Potassium 3.4 mEq/L (3.5-4.5); Sodium 134 mEq/L (136-145); eGFR For African Americans > 60 (> 60); eGFR For Non-African Americans > 60 (> 60)
[2017-04-06 06:54] LABS: Blood Urea Nitrogen 4 mg/dL (7-20)
[2017-04-06] MEDS ORDERED: Magnesium Sulfate 2 GM in D5% in Water 100 ML IVPB ONE (08:39)
[2017-04-06] MEDS: hydrALAZINE 25 MG TABLET PO SCH ×3 (09:19→23:43)
[2017-04-06] MEDS: Magnesium Oxide 400 MG TABLET PO SCH ×2 (09:19→21:15)
[2017-04-06] MEDS: Aspirin Enteric Coated 81 MG Tablet PO SCH (09:19)
--- NOTE | 2017-04-06 12:03 | Internal Med Progress Note ---
Date of Encounter: 04/06/17 Time of Encounter: 09:00 - Assessment and plan (1) Abdominal pain Current Visit: Yes Status: Acute Assessment and plan: She was admitted with abdominal pain, CT scan of the abdomen done in the emergency department, it was consistent with either mild diverticulitis or focal infectious or inflammatory colitis. The patient also had leukocytosis, lactic acid was also elevated initially, it improved afterwards with IV fluids. She was started on broad-spectrum antibiotics, will continue with both Cipro and Flagyl IV. The patient is feeling better now, we will advance diet today. Continue fluid and electrolyte monitoring electrolytes and kidney function test on a daily basis. Mild hypokalemia, we will supplement potassium today and continue monitoring. Hypomagnesemia also noted, will supplement magnesium the IV and by mouth. Hypokalemia noted, will supplement potassium and continue monitoring. DVT prophylaxis with Lovenox subcutaneously. Mild elevation of troponins, no EKG changes, no chest pain, no acute interventions at this point. Patient has improved, her leukocytosis has resolved. If she continues to do well, tolerates diet, no significant abnormalities in her blood work tomorrow she will be discharged home. I discussed this possibility with the patient, she expressed understanding and agreed with the plan. Qualifiers: Abdominal location: left lower quadrant Qualified Code(s): R10.32 - Left lower quadrant pain (2) Colitis Current Visit: Yes Status: Acute (3) Elevated troponin Current Visit: Yes Status: Acute (4) Hypokalemia Current Visit: Yes Status: Acute (5) Hyponatremia Current Visit: Yes Status: Acute (6) DVT prophylaxis Current Visit: No Status: Acute - Subjective Interval history: The patient was seen and examined at bedside. She has tolerated diet, denies nausea and vomiting. Denies fever. - Constitutional Vitals: Temp Pulse Resp BP Pulse Ox 98.3 F 99 17 156/79 93 04/06/17 08:19 04/06/17 08:19 04/06/17 08:19 04/06/17 08:19 04/06/17 08:19 General appearance: Present: A&O X 3, pleasant, no acute distress - Head Head exam: Present: atraumatic, normocephalic - Eye Eye exam: Present: PERRL, conjuntiva pink, sclera anicteric Pupils: Present: PERRL - Neck Neck exam general surgery: Present: supple, trachea midline. Absent: lymphadenopathy - Respiratory Respiratory exam: Present: CTAB. Absent: accessory muscle use, rales, rhonchi, wheezes - Cardiovascular Cardiovascular exam: Present: RRR, +S1, +S2. Absent: diastolic murmur, gallop, rubs, systolic murmur - GI/Abdominal GI/Abdominal exam: Present: normal bowel sounds, soft, no peritoneal signs. Absent: distended, tenderness - Extremities Exam Extremities exam: Present: warm, radial pulses palpable and symetrical. Absent : calf tenderness, cyanotic, pedal edema - Neurological Exam Neurological exam: Present: CN II-XII intact, oriented X3, no focal deficits. Absent: pronater drift, facial droop, speech deficit - Skin Skin exam: Present: dry, intact Internal Medicine: Result - Labs CBC & Chem 7: 04/06/17 05:58 04/06/17 05:58 Labs: Short CBC 04/06/17 Range/Units 05:58 WBC 8.1 D (4.3-11.1) K/mcL Hgb 11.2 L (11.5-15.4) g/dL Hct 31.8 L (35.3-44.9) % Plt Count 252 (140-400) K/mcL Neutrophils # 4.6 (1.6-8.9) K/mcL BMP 04/06/17 05:58 Sodium 134 L Potassium 3.4 L Chloride 103 Carbon Dioxide 24 BUN 4 L Creatinine 0.69 Glucose 139 H Calcium 8.1 L Consult Discharge Plan - Plan Referrals: Phuc Lemus MD [Primary Care Provider] -
--- NOTE | 2017-04-06 19:37 | Electrocardiograph Report ---
[place] [address] Test Date: 2017-04-04 Pat Name: [facility] Department: 102 Room: 2A32 Gender: F Public Welfare Director: [facility] : 1940 Requested By: Ernie Wilson Order Number: [id number] Reading MD: Ricardo Morejon MD Measurements Intervals [place] Rate: 83 P: 14 ND: 152 QRS: -1 QRSD: 96 T: 28 QT: 375 QTc: 415 Interpretive Statements SINUS RHYTHM INFERIOR MYOCARDIAL INFARCTION, PROBABLY OLD Electronically Signed On 04-06-2017 19:35:55 EDT by Ricardo Morejon MD
[2017-04-06] MEDS: traZODone 50 MG TABLET PO SCH (21:15)
[2017-04-07 06:00] LABS: Hematocrit 33.5 % (35.3-44.9); Hemoglobin 11.8 g/dL (11.5-15.4); Immature Granulocytes % 0.3 % (0-4); Lymphocytes % 19.7 %; Mean Corpuscular HGB Conc 35.2 g/dL (31.6-35.5); Mean Corpuscular Hemoglobin 31.6 pg (28.0-33.3); Mean Corpuscular Volume 89.8 fL (83.0-100.0); Mean Platelet Volume 8.6 fL (9.4-12.4); Platelet Count 253 K/mcL (140-400); Red Blood Count 3.73 M/mcL (3.82-4.97); Red Cell Distribution Width 12.7 % (11.5-14.5); Segmented Neutrophils % 56.3 %
[2017-04-07 06:01] LABS: Basophils % 0.4 %; Eosinophils # 0.4 K/mcL (0.0-0.6); Eosinophils % 4.7 %; Lymphocytes # 1.5 K/mcL (0.6-4.6); Monocytes # 1.4 K/mcL (0.0-1.3); Monocytes % 18.6 %; Neutrophils # 4.3 K/mcL (1.6-8.9)
[2017-04-07] MEDS: MetroNIDAZOLE 500 MG/100 ML 500 MG/100 ML BAG IVPB SCH (06:01)
[2017-04-07 06:29] LABS: BUN/Creatinine Ratio 6 (6-26); Calcium 8.7 mg/dL (8.6-10.8); Carbon Dioxide 25 mEq/L (19-29); Chloride 101 mEq/L (98-109); Glucose 105 mg/dL (70-99); Osmolality,Calculated 275 (280-300); Potassium 3.9 mEq/L (3.5-4.5); Sodium 134 mEq/L (136-145); eGFR For African Americans > 60 (> 60); eGFR For Non-African Americans > 60 (> 60)
[2017-04-07 06:33] LABS: Blood Urea Nitrogen 4 mg/dL (7-20)
[2017-04-07 06:58] VITALS: BP 161/80
[2017-04-07 07:00] LABS: Platelet Estimate Normal (Normal)
[2017-04-07] MEDS: Aspirin Enteric Coated 81 MG Tablet PO SCH (08:29)
[2017-04-07] MEDS: hydrALAZINE 25 MG TABLET PO SCH (08:29)
[2017-04-07] MEDS: Magnesium Oxide 400 MG TABLET PO SCH (08:29)
--- NOTE | 2017-04-07 09:03 | Discharge Summary ---
Date of Encounter: 04/07/17 Time of Encounter: 09:00 - Discharge Diagnosis (1) Abdominal pain Priority: Primary Status: Acute Qualifiers: Abdominal location: left lower quadrant Qualified Code(s): R10.32 - Left lower quadrant pain (2) Colitis Priority: Secondary Status: Acute (3) Elevated troponin Priority: Secondary Status: Acute (4) Hypokalemia Priority: Secondary Status: Acute (5) Hyponatremia Priority: Secondary Status: Acute (6) DVT prophylaxis Priority: Secondary Status: Acute - Discharge Medications Prescriptions: Ciprofloxacin HCl [Cipro] 500 mg PO Q11H 4 Days Lactobacillus [Culturelle] 1 each PO BID 7 Days metroNIDAZOLE [Flagyl] 500 mg PO ONCE 4 Days Home Medications: Aspirin [Lo-Dose Aspirin EC] 81 mg PO DAILY 03/31/17 [History] Atorvastatin Calcium [Lipitor] 80 mg PO HS 03/31/17 [History] Calcium Carbonate [Calcium] 500 mg PO DAILY 03/31/17 [History] Chlorthalidone 25 mg PO DAILY 03/31/17 [History] Donepezil [Aricept] 10 mg PO HS 03/31/17 [History] Levothyroxine [Synthroid] 50 mcg PO 0630 03/31/17 [History] Meclizine HCl [Verticalm] 25 mg PO DAILY PRN 03/31/17 [History] Mv-Mn/FA/Vit K/Lycop/Lut/Coq10 [Daily Multivitamin Capsule] 1 each PO DAILY [History] Omeprazole [PriLOSEC] 40 mg PO DAILY 03/31/17 [History] traZODone [TraZODone] 50 mg PO HS 03/31/17 [History] Sodium Chloride 1 gm PO TID #90 tablet 04/02/17 [Rx] hydrALAZINE [HydrALAZINE] 50 mg PO Q8HR #180 tablet 04/02/17 [Rx] Carvedilol [Coreg] 6.25 mg PO BIDWM 04/04/17 [History] DULoxetine [Cymbalta] 60 mg PO BID 04/04/17 [History] Oxybutynin [Ditropan] 5 mg PO BID 04/04/17 [History] Potassium Chloride [Klor-Con 10] 10 meq PO BID 04/04/17 [History] Ciprofloxacin HCl [Cipro] 500 mg PO Q11H 4 Days 04/07/17 [Rx] Lactobacillus [Culturelle] 1 each PO BID 7 Days 04/07/17 [Rx] metroNIDAZOLE [Flagyl] 500 mg PO ONCE 4 Days 04/07/17 [Rx] Allergies/Adverse Reactions: Allergies Penicillins Allergy (Verified 04/04/17 11:54) Rash codeine Adverse Reaction (Verified 04/04/17 11:54) Vomiting Date of admission: 04/04/17 15:57 Primary care physician: Phuc Lemus, Discharging clinician: Hong Lin Anticipated date of discharge: 04/07/17 - Patient Status Disposition: Home, Self-Care Condition: Good Functional capacity at discharge: independent ambulation Overall status at discharge: patient is back to baseline - Discharge Instructions Follow Up With: Phuc Lemus MD [Primary Care Provider] - - Diet and Activity Activity: increase activity as tolerated Diet: advance to your usual diet Interval History: Ms. Cunningham is a 77 year old female with hypertension, hyperlipidemia, hypothyroid , presents to the emergency department today with complaints of abdominal pain, nausea and vomiting. Patient was discharged 2 days ago after being admitted with hyponatremia. She has been feeling constipated the last few days, and took a laxative last night. Overnight she developed abdominal pain that she describes as constant, cramping, stabbing, worse in the left lower quadrant this morning she developed nausea and vomiting,the emesis is nonbilious and nonbloody. During her time in the emergency department she developed diarrhea and had 2 large bowel movements described as loose and watery. She reports her abdominal pain is somewhat relieved but still there after these bowel movements. She denies any headache, chest pain, palpitations, shortness of breath. She reports feeling chilled, but denies fever or sweats. Evaluation in emergency department revealed elevated white blood cell count of 19.6, elevated troponin of 0.07. She was mildly hyponatremic with sodium of 132, though this is much improved from her previous hospitalization where she was admitted with sodium of 118. She is hypokalemic with potassium of 3.2. Her EKG showed no acute changes from previous. CT of the abdomen and pelvis showed mild acute wall thickening and inflammatory fat stranding involving the distal descending colon consistent with either mild diverticulitis or focal infectious or inflammatory colitis, no evidence of perforation, free air, abscess or obstruction. CT also showed large amount of stool throughout the colon suggesting chronic constipation. On exam, patient is alert and oriented, in no acute distress. Heart has regular rate and rhythm, lungs are clear bilaterally to auscultation. Abdomen is soft, tender to palpation in the left lower quadrant, normal bowel sounds. Hospital course: Ms. Cunningham is a 77 year old female. She was admitted with abdominal pain, CT scan of the abdomen done in the emergency department, it was consistent with either mild diverticulitis or focal infectious or inflammatory colitis. The patient also had leukocytosis, lactic acid was also elevated initially, it improved afterwards with IV fluids. Today her WBC count is within normal limits. She has not had any fever since admission. She was started on broad-spectrum antibiotics, will continue with both Cipro and Flagyl via po to complete a course. The patient is feeling better now, we will discharge him home today. She had initially hypokalemia, potassium was supplemented and today's is 2.9 which is within normal limits. She also had some hypomagnesemia, we provided supplementation with magnesium via IV. DVT prophylaxis was provided with Lovenox subcutaneously. Mild elevation of troponins, no EKG changes, no chest pain, no acute interventions, mild elevation was likely secondary to myocardial strain due to colitis and dehydration and hypokalemia. Patient has improved, her leukocytosis has resolved. Incidentally, she was found to have cholelithiasis, I would recommend the patient to follow up with surgery as outpatient. Additionally, the patient should follow up with gastroenterology within 4 weeks after the acute event of inflammation has resolved for an outpatient evaluation. - Time Spent with Patient Total time spent providing and/or coordinating discharge services: - Constitutional Vitals: Temp Pulse Resp BP Pulse Ox 98.2 F 91 16 161/80 94 04/07/17 06:58 04/07/17 06:58 04/07/17 06:58 04/07/17 06:58 04/07/17 06:58 General appearance: Present: A&O X 3, pleasant, no acute distress - Head Head exam: Present: atraumatic, normocephalic - Eye Eye exam: Present: PERRL, conjuntiva pink, sclera anicteric Pupils: Present: PERRL - Neck Neck exam general surgery: Present: supple, trachea midline. Absent: lymphadenopathy - Respiratory Respiratory exam: Present: CTAB. Absent: accessory muscle use, rales, rhonchi, wheezes - Cardiovascular Cardiovascular exam: Present: RRR, +S1, +S2. Absent: diastolic murmur, gallop, rubs, systolic murmur - GI/Abdominal GI/Abdominal exam: Present: normal bowel sounds, soft, no peritoneal signs. Absent: distended, tenderness - Extremities Exam Extremities exam: Present: warm, radial pulses palpable and symetrical. Absent : calf tenderness, cyanotic, pedal edema - Neurological Exam Neurological exam: Present: CN II-XII intact, oriented X3, no focal deficits. Absent: pronater drift, facial droop, speech deficit - Skin Skin exam: Present: dry, intact
--- NOTE | 2017-04-07 12:07 | Physician Discharge Referral ---
Home Health/Hosp Referral Info Transfer to: Home Health - Diagnosis (1) Abdominal pain Status: Acute (2) Colitis Status: Acute (3) Elevated troponin Status: Acute (4) Hypokalemia Status: Acute (5) Hyponatremia Status: Acute (6) DVT prophylaxis Status: Acute - Respiratory Orders Smoking Cessation: Smoking cessation has been advised. For more information, call the [place] Tobacco Quit Line at 2-602-OBPI-NOW. - Diet/Nutrition Diet/Nutrition Orders: Cardiac - Activity Activity Orders: Ambulate - Services Needed Following services are medically necessary services: Nursing, Home Health Aide - Transfer Medications Prescriptions: Ciprofloxacin HCl [Cipro] 500 mg PO Q11H 4 Days Lactobacillus [Culturelle] 1 each PO BID 7 Days metroNIDAZOLE [Flagyl] 500 mg PO ONCE 4 Days Home Medications: Aspirin [Lo-Dose Aspirin EC] 81 mg PO DAILY 03/31/17 [History] Atorvastatin Calcium [Lipitor] 80 mg PO HS 03/31/17 [History] Calcium Carbonate [Calcium] 500 mg PO DAILY 03/31/17 [History] Chlorthalidone 25 mg PO DAILY 03/31/17 [History] Donepezil [Aricept] 10 mg PO HS 03/31/17 [History] Levothyroxine [Synthroid] 50 mcg PO 0630 03/31/17 [History] Meclizine HCl [Verticalm] 25 mg PO DAILY PRN 03/31/17 [History] Mv-Mn/FA/Vit K/Lycop/Lut/Coq10 [Daily Multivitamin Capsule] 1 each PO DAILY [History] Omeprazole [PriLOSEC] 40 mg PO DAILY 03/31/17 [History] traZODone [TraZODone] 50 mg PO HS 03/31/17 [History] Sodium Chloride 1 gm PO TID #90 tablet 04/02/17 [Rx] hydrALAZINE [HydrALAZINE] 50 mg PO Q8HR #180 tablet 04/02/17 [Rx] Carvedilol [Coreg] 6.25 mg PO BIDWM 04/04/17 [History] DULoxetine [Cymbalta] 60 mg PO BID 04/04/17 [History] Oxybutynin [Ditropan] 5 mg PO BID 04/04/17 [History] Potassium Chloride [Klor-Con 10] 10 meq PO BID 04/04/17 [History] Ciprofloxacin HCl [Cipro] 500 mg PO Q11H 4 Days 04/07/17 [Rx] Lactobacillus [Culturelle] 1 each PO BID 7 Days 04/07/17 [Rx] metroNIDAZOLE [Flagyl] 500 mg PO ONCE 4 Days 04/07/17 [Rx] Allergies/Adverse Reactions: Allergies Penicillins Allergy (Verified 04/04/17 11:54) Rash codeine Adverse Reaction (Verified 04/04/17 11:54) Vomiting Certification: Further, I certify that my clinical findings support that this patient is homebound (i.e. absences from home require considerable and taxing effort and are for medical reasons or zoroastrian services or infrequently or short duration when for other reasons) because: Homebound Reason: Patient requires assistance of a person or device to safely leave home Attestation: My signature below is to certify that this patient is under my care and that I, or nurse practitioner, or a physician's academic affairs assistant working with me, has a face-to -face encounter with this patient.
== END 2017-04-07 12:00 | disposition home or self-care (01) ==
LOC: EMEROO 11:52 → 2ANU 11:52
PROVIDERS: ADMIT Nurse Practitioner Family; ATTEND Internal Medicine

== ENCOUNTER 2017-12-12 14:37 | Observation (INO) ==
[2017-12-12] MEDS ORDERED: Ondansetron 4 MG/2 ML VIAL IVP ONE (15:20)
[2017-12-12] MEDS ORDERED: 0.9 % Sodium Chloride 1,000 ML IVC ONE (15:20)
[2017-12-12 16:26] LABS: Hematocrit 35.1 % (35.3-44.9); Hemoglobin 11.6 g/dL (11.5-15.4); Mean Corpuscular Hemoglobin 28.7 pg (28.0-33.3); Mean Corpuscular Volume 86.9 fL (83.0-100.0); Mean Platelet Volume 9.2 fL (9.4-12.4); Platelet Count 206 K/mcL (140-400); Red Blood Count 4.04 M/mcL (3.82-4.97); Red Cell Distribution Width 14.8 % (11.5-14.5)
[2017-12-12 16:28] LABS: Bilirubin,Urine Negative (Negative); Blood,Urine Negative (Negative); Clarity,Urine Clear (Clear); Color,Urine Yellow (Yellow); Glucose,Urine (UA) Normal (Normal); Ketones,Urine Trace mg/dL (Negative); Leukocyte Esterase,Urine Negative (Negative); Nitrite,Urine Negative (Negative); PH,Urine 6.5 pH Units (5.0-8.0); Protein,Urine Negative (Neg-Trace); Specific Gravity,Urine 1.016 (1.010-1.025); Urobilinogen,Urine Normal (Normal)
--- NOTE | 2017-12-12 16:37 | Emergency Department Note ---
Disposition Clinical Impression: Pneumonia Qualifiers: Pneumonia type: due to unspecified organism Laterality: right Lung location: unspecified part of lung Qualified Code(s): J18.9 - Pneumonia, unspecified organism Disposition: Admitted As Inpatient Condition: Fair Referrals: Phuc Lemus MD [Primary Care Provider] - Forms: ED Satisfaction Letter Time of Disposition: 17:09 General Adult HPI - General Chief complaint: ED Fall Stated complaint: Fall, weakness, vomiting Time Seen by Provider: 12/12/17 14:43 Source: EMS Limitations: no limitations Nursing Notes Reviewed: Yes Vital Signs Reviewed: Yes - History of Present Illness HPI Narrative: Patient presents with complaint of weakness which started at 10:00 today at home and lasted for about 4 hours and was constant and was generalized. Had some posterior neck pain during this time. She denies any chest pain or tightness or discomfort or pressure. No exertional chest pain. No diaphoresis or dyspnea. Her neck pain is not worse with exertion. No vomiting at this time however did vomit once last night. No diarrhea. She has been exposed to her who has viral illness symptoms including vomiting and diarrhea. She denies any blood in the urine or in the stool. Social history: Never smoked , no alcohol Pain Scale: 8 - Related Data Home Medications Medication Instructions Recorded Confirmed Aspirin [Lo-Dose Aspirin EC] 81 mg PO DAILY 03/31/17 04/04/17 Atorvastatin Calcium [Lipitor] 80 mg PO HS 03/31/17 04/04/17 Calcium Carbonate [Calcium] 500 mg PO DAILY 03/31/17 04/04/17 Chlorthalidone 25 mg PO DAILY 03/31/17 04/04/17 Donepezil [Aricept] 10 mg PO HS 03/31/17 04/04/17 Levothyroxine [Synthroid] 50 mcg PO 0630 03/31/17 04/04/17 Meclizine HCl [Verticalm] 25 mg PO DAILY PRN 03/31/17 04/04/17 Mv-Mn/FA/Vit K/Lycop/Lut/Coq10 1 each PO DAILY 03/31/17 04/04/17 [Daily Multivitamin Capsule] Omeprazole [PriLOSEC] 40 mg PO DAILY 03/31/17 04/04/17 traZODone [TraZODone] 50 mg PO HS 03/31/17 04/04/17 Carvedilol [Coreg] 6.25 mg PO BIDWM 04/04/17 04/04/17 DULoxetine [Cymbalta] 60 mg PO BID 04/04/17 04/04/17 Oxybutynin [Ditropan] 5 mg PO BID 04/04/17 04/04/17 Potassium Chloride [Klor-Con 10] 10 meq PO BID 04/04/17 04/04/17 Previous Rx's Medication Instructions Recorded Sodium Chloride 1 gm PO TID #90 tablet 04/02/17 hydrALAZINE [HydrALAZINE] 50 mg PO Q8HR #180 tablet 04/02/17 Ciprofloxacin HCl [Cipro] 500 mg PO Q11H 4 Days tablet 04/07/17 Lactobacillus [Culturelle] 1 each PO BID 7 Days [email or web address] 04/07/17 metroNIDAZOLE [Flagyl] 500 mg PO ONCE 4 Days tablet 04/07/17 Allergies Allergy/AdvReac Type Severity Reaction Status Date / Time Penicillins Allergy Rash Verified 04/04/17 11:54 codeine AdvReac Vomiting Verified 04/04/17 11:54 Review of Systems: Constitutional: No fever Vision: No blurred vision ENT: No rhinorrhea Respiratory: No cough Allergic: No allergies : No blood in urine GI: No blood in stool Hematologic: No bruising Dermatologic: No skin rash Musculoskeletal: No pain in the extremities Neuro: No numbness of the extremities Past Medical History - Past Medical History Medical history: Reports: hyperlipidemia, hypertension, thyroid disease, other Surgical history: Reports: appendectomy, hysterectomy, knee replacement Psychiatric history: Reports: depression - Social History Smoking Status: Never smoker Smokeless Tobacco Status: No Alcohol use: Reports: none Drug use: Reports: none Physical Exam CONSTITUTIONAL: Well-appearing; well-nourished; A&O X3, in no apparent distress HEAD: Normocephalic; atraumatic. EYES: PERRL, EOMI, no scleral icterus NOSE: The nose is normal in appearance without rhinorrhea NECK: Supple without rigidity, no JAROD RESP: Normal chest excursion with respiration; breath sounds with some crackles right lung and clear on the left CARD: Regular rhythm, without murmurs, rub or gallop ABD: Non-distended; non-tender, soft, without rigidity, rebound or guarding SKIN: Normal for age and race; warm and dry; no apparent lesions, no rash NEUROLOGICAL: Patient is alert and oriented times three. Cranial nerves III- XII are intact. Sensory and motor functions are intact. Strength is 5/5 for flexion and extension in all 4 extremities. Patellar DTRS are equal and intact. Finger to nose testing is equal and normal bilaterally. - General Limitations: no limitations General appearance: alert, in no apparent distress Course Vital Signs Temperature 97.7 F 12/12/17 14:54 Pulse Rate 100 12/12/17 14:54 Respiratory Rate 18 12/12/17 14:54 Blood Pressure 128/66 12/12/17 14:54 O2 Sat by Pulse Oximetry 95 12/12/17 14:54 Temperature 97.7 F 12/12/17 14:54 Pulse Rate 100 12/12/17 14:54 Respiratory Rate 18 12/12/17 14:54 Blood Pressure 128/66 12/12/17 14:54 O2 Sat by Pulse Oximetry 98 12/12/17 15:04 Oxygen Delivery Oxygen Delivery Nasal Cannula Medical Decision Making - [facility] Narrative Medical decision making narrative: I did review the initial labs with minimal elevation in white blood cell count, the patient is bright and alert and well in appearance. I did review the radiology testing showing that the patient does have some right-sided opacity possibly consistent with infiltrate. 1636 The patient has not recently had any healthcare facilities so started on Rocephin 2 g and Zithromax 500 mg and will be admitted to the hospital. She does have leukocytosis and she does have crackles in the right long on exam consistent with her x-ray finding of a infiltrates. Hospitalist will be contacted [id number] I did review the patient's case she which does show normal sinus rhythm with a rate of 92 without acute ischemic change. 1725 - Medical Records Medical records reviewed: Yes I reviewed the patient's medical records. - Lab Data Lab results reviewed: Yes I reviewed the patient's lab results. Result diagrams: 12/12/17 16:19 12/12/17 16:19 Lab Results 12/12/17 12/12/17 12/12/17 Range/Units 15:49 16:19 16:19 WBC 16.6 H (4.3-11.1) K/mcL RBC 4.04 (3.82-4.97) M/mcL Hgb 11.6 (11.5-15.4) g/dL Hct 35.1 L (35.3-44.9) % MCV 86.9 (83.0-100.0) fL MCH 28.7 (28.0-33.3) pg MCHC 33.0 (31.6-35.5) g/dL RDW 14.8 H (11.5-14.5) % Plt Count 206 (140-400) K/mcL MPV 9.2 L (9.4-12.4) fL Sodium 133 L (136-145) mEq/L Potassium 3.6 (3.5-5.1) mEq/L Chloride 100 (98-107) mEq/L Carbon Dioxide 25 (23-29) mEq/L BUN 16 (8-23) mg/dL Creatinine 0.80 (0.60-1.20) mg/dL Est GFR ( Amer) > 60 (> 60) Est GFR (Non-Af Amer) > 60 (> 60) BUN/Creatinine Ratio 20 (6-26) Glucose 94 (70-105) mg/dL Calculated Osmolality 277 L (280-300) Lactic Acid (0.5-2.2) mmol/L Calcium 8.4 L (8.6-10.3) mg/dL Troponin I (< 0.04) ng/mL Urine Color Yellow (Yellow) Urine Clarity Clear (Clear) Urine pH 6.5 (5.0-8.0) pH Units Ur Specific [place] 1.016 (1.010-1.025) Urine Protein Negative (Neg-Trace) mg/dL Urine Glucose (UA) Normal (Normal) mg/dL Urine Ketones Trace H (Negative) mg/dL Urine Blood Negative (Negative) Urine Nitrite Negative (Negative) Urine Bilirubin Negative (Negative) Urine Urobilinogen Normal (Normal) mg/dL Ur Leukocyte Esterase Negative (Negative) 12/12/17 12/12/17 Range/Units 16:19 16:19 WBC (4.3-11.1) K/mcL RBC (3.82-4.97) M/mcL Hgb (11.5-15.4) g/dL Hct (35.3-44.9) % MCV (83.0-100.0) fL MCH (28.0-33.3) pg MCHC (31.6-35.5) g/dL RDW (11.5-14.5) % Plt Count (140-400) K/mcL MPV (9.4-12.4) fL Sodium (136-145) mEq/L Potassium (3.5-5.1) mEq/L Chloride (98-107) mEq/L Carbon Dioxide (23-29) mEq/L BUN (8-23) mg/dL Creatinine (0.60-1.20) mg/dL Est GFR ( Amer) (> 60) Est GFR (Non-Af Amer) (> 60) BUN/Creatinine Ratio (6-26) Glucose (70-105) mg/dL Calculated Osmolality (280-300) Lactic Acid 1.3 (0.5-2.2) mmol/L Calcium (8.6-10.3) mg/dL Troponin I 0.03 (< 0.04) ng/mL Urine Color (Yellow) Urine Clarity (Clear) Urine pH (5.0-8.0) pH Units Ur Specific [place] (1.010-1.025) Urine Protein (Neg-Trace) mg/dL Urine Glucose (UA) (Normal) mg/dL Urine Ketones (Negative) mg/dL Urine Blood (Negative) Urine Nitrite (Negative) Urine Bilirubin (Negative) Urine Urobilinogen (Normal) mg/dL Ur Leukocyte Esterase (Negative) - Radiology Data Radiology results reviewed: Yes I reviewed the patient's radiology results.
[2017-12-12 16:48] LABS: BUN/Creatinine Ratio 20 (6-26); Blood Urea Nitrogen 16 mg/dL (8-23); Calcium 8.4 mg/dL (8.6-10.3); Carbon Dioxide 25 mEq/L (23-29); Chloride 100 mEq/L (98-107); Glucose 94 mg/dL (70-105); Osmolality,Calculated 277 (280-300); Potassium 3.6 mEq/L (3.5-5.1); Sodium 133 mEq/L (136-145); eGFR For African Americans > 60 (> 60); eGFR For Non-African Americans > 60 (> 60)
[2017-12-12] MEDS ORDERED: Azithromycin 500 MG in D5% in Water 250 ML IVPB ONE (17:05)
[2017-12-12] MEDS ORDERED: cefTRIAXone 2,000 MG in Water for inj. (sterile) 20 ML 20 ML IVPB ONE (17:30)
[2017-12-12] MEDS ORDERED: cefTRIAXone 2,000 MG in Water for inj. (sterile) 20 ML 20 ML IVP ONE (17:30)
--- NOTE | 2017-12-12 18:31 | Event Note ---
Date of Encounter: 12/12/17 Time of Encounter: 18:30 1. Community-acquired pneumonia Continue Rocephin and azithromycin Sputum and blood cultures 2. Hypothyroidism, continue Synthroid 3. Chronic hyponatremia, continue salt tablets 4. Depression, stable The patient will be admitted for observation, full code. Time spent on this admission 40 minutes. H&P will be completed by Lee Mahoney NP
--- NOTE | 2017-12-12 18:37 | Internal Med History&Physical ---
<Lee Mahoney J - Last Filed: 12/12/17 20:40> Date of Encounter: 12/12/17 Time of Encounter: 18:34 Assessment and Plan (1) Community acquired pneumonia Current visit: Yes Status: Acute Presents today with shortness of breath 1 week, weakness and fatigue Chest x-ray reveals air space opacities in the right lobe; diagnosis of community-acquired pneumonia -Continue azithromycin and Rocephin - Blood Cx sent - CBCD, CMP in AM - Tylenol 650 mg PO q 4-6 hr PRN pain or fever - Restart home medications - Heparin 5000 U SQ BID - Respiratory support per NC; titrate to maintain Spo2 >92% - Continuous tele, and Spo2 monitoring Qualifiers: Laterality: right Lung location: unspecified part of lung Qualified Code( s): J18.9 - Pneumonia, unspecified organism (2) Nausea & vomiting Current visit: Yes Status: Acute Reporting non-intractable nausea and vomiting which occurred yesterday. Her is also vomiting. She has not vomited as of today Social [employer] her generalized weakness and fatigue. -Continue antiemetics Qualifiers: Vomiting type: unspecified Vomiting Intractability: unspecified Qualified Code(s): R11.2 - Nausea with vomiting, unspecified (3) Fall Current visit: Yes Status: Acute In the setting of generalized weakness associated with pneumonia Normally ambulatory without difficulty Qualifiers: Encounter type: initial encounter Qualified Code(s): W19.XXXA - Unspecified fall, initial encounter (4) Hypertension Current visit: Yes Status: Chronic Stable. Continue hydralazine and carvedilol Qualifiers: Hypertension type: essential hypertension Qualified Code(s): I10 - Essential (primary) hypertension (5) Hypothyroidism Current visit: Yes Status: Chronic Continue Synthroid Qualifiers: Hypothyroidism type: acquired Qualified Code(s): E03.9 - Hypothyroidism, unspecified (6) DVT prophylaxis Current visit: Yes Status: Acute Heprin 5000 units SC BID Internal Medicine - H&P: HPI Chief complaint: generalized weakness, fall, vomitin Admitted From: Home Plans for Post Hospital Care: Home History of present illness: Ms. Cunningham is a 77 year old female with a past medical history of HRT, HTN and hypothyroidism. She presents today with generalized weakness, nausea and vomiting. She reports that she fell due to bilateral leg weakness. Additionally, she reports that last night she had an episode of vomiting. She admits to a non-productive cough, and ill contacts; n/v/d. She denies any fevers, chills, CP, SOB, dysuria, or abdominal pain. CXR reveals Subtle scattered airspace opacities more prominent on the right. Do to clinical presentation, findings suggesting PNA and generalized she is being admitted. Past Med Surg Social Fam HX - Past Medical History Medical history: hyperlipidemia, hypertension, thyroid disease, other Psychiatric history: depression - Past Surgical History Surgical History: appendectomy, hysterectomy, knee replacement - Social History Smoking Status: Never smoker Smokeless Tobacco Status: No Alcohol use: none Drug use: none - Family History Brother Hx Family Cardiac Disorders: Yes (CABG) Hx Family Cancer: Yes Hx Family Endocrine Disorder: Yes (diabetes) Internal Medicine - H&P: Meds Aspirin [Lo-Dose Aspirin EC] 81 mg PO DAILY 03/31/17 [History] Atorvastatin Calcium [Lipitor] 80 mg PO HS 03/31/17 [History] Calcium Carbonate [Calcium] 500 mg PO DAILY 03/31/17 [History] Donepezil [Aricept] 10 mg PO HS 03/31/17 [History] Levothyroxine [Synthroid] 50 mcg PO 0630 03/31/17 [History] Meclizine HCl [Verticalm] 25 mg PO DAILY PRN 03/31/17 [History] Mv-Mn/FA/Vit K/Lycop/Lut/Coq10 [Daily Multivitamin Capsule] 1 each PO DAILY [History] Omeprazole [PriLOSEC] 40 mg PO DAILY 03/31/17 [History] traZODone [TraZODone] 50 mg PO HS 03/31/17 [History] hydrALAZINE [HydrALAZINE] 50 mg PO Q8HR #180 tablet 04/02/17 [Rx] DULoxetine [Cymbalta] 90 mg PO DAILY 04/04/17 [History] Oxybutynin [Ditropan] 5 mg PO BID 04/04/17 [History] Potassium Chloride [Klor-Con 10] 10 meq PO BID 04/04/17 [History] BuPROPion XL (24 HR) [Wellbutrin XL] 150 mg PO DAILY 12/12/17 [History] Carvedilol 3.125 mg PO BID 12/12/17 [History] Sodium Chloride 1 gm PO BID 12/12/17 [History] 3 Allergy/AdvReac Type Severity Reaction Status Date / Time Penicillins Allergy Rash Verified 04/04/17 11:54 codeine AdvReac Vomiting Verified 04/04/17 11:54 All Systems PM: A 10-system review of systems was performed and is negative for pertinent findings except as documented above in the HPI. - Constitutional Constitutional: fever(s), falls, weakness, no chills - EENT Eyes: no change in vision, no discharge, no pain, no photophobia Ears: no ear discharge, no ear pain, no tinnitus Nose, mouth and throat: no dysphagia, no nasal discharge, no neck pain, no sore throat - Cardiovascular Cardiovascular ROS IM: no chest pain, no diaphoresis, no dyspnea, no lightheadedness, no palpitations, no syncope - Respiratory Respiratory: no cough, no dyspnea, no wheezing, no excessive phlegm production - Gastrointestinal Gastrointestinal: as per HPI - Genitourinary Genitourinary: no change in urinary stream, no dysuria, no flank pain, no hematuria - Musculoskeletal Musculoskeletal ROS IM: no numbness, no tingling - Integumentary Integumentary IM: no rash, no unusual bruising - Neurological Neurological ROS: no confusion, no convulsions, no focal weakness, no numbness, no tingling, no tremor(s) - Constitutional Vitals: Temp Pulse Resp BP Pulse Ox 97.7 F 94 18 122/60 95 12/12/17 14:54 12/12/17 17:50 12/12/17 17:50 12/12/17 17:50 12/12/17 17:50 General appearance: Present: cooperative, A&O X 3, no acute distress, answers questions appropriately - Head Head exam: Present: atraumatic, normocephalic - Eye Eye exam: Present: PERRL, conjuntiva pink, sclera anicteric Pupils: Present: PERRL - Neck Neck exam general surgery: Present: supple, trachea midline. Absent: lymphadenopathy - Respiratory Respiratory exam: Present: CTAB. Absent: accessory muscle use, rales, rhonchi, wheezes - Cardiovascular Cardiovascular exam: Present: RRR, +S1, +S2. Absent: diastolic murmur, gallop, rubs, systolic murmur - GI/Abdominal GI/Abdominal exam: Present: normal bowel sounds, soft, no peritoneal signs. Absent: distended, tenderness - Extremities Exam Extremities exam: Present: warm, radial pulses palpable and symmetrical. Absent : calf tenderness, cyanotic, pedal edema - Neurological Exam Neurological exam: Present: CN II-XII intact, oriented X3, no focal deficits. Absent: pronater drift, facial droop, speech deficit - Skin Skin exam: Present: dry, intact Internal Med - H&P Results - Labs CBC & Chem 7: 12/12/17 16:19 12/12/17 16:19 - EKG Data -: EKG Interpreted by Myself EKG shows normal: sinus rhythm - EKG Data When compared to previous EKG: there is no significant change Interpretation IM: normal EKG - Impressions Impressions Cervical Spine CT 12/12/17 15:18 IMPRESSION: No acute fracture D/ / Isi Remy MD / Isi Remy MD Interpreting Provider: Isi Remy MD Head CT 12/12/17 15:18 IMPRESSION: No acute intracranial abnormality. D/ / Trinity Nichols Cha, MD / Trinity Nichols Cha, MD Interpreting Provider: Trinity Nichols Cha, MD Chest X-Ray 12/12/17 15:19 IMPRESSION: Subtle scattered airspace opacities more prominent on the right. Differential includes edema, infection, or atelectasis. D/ / Isi Remy MD / Isi Remy MD Interpreting Provider: Isi Remy MD <Samuel Mendes H - Last Filed: 12/12/17 21:22> Date of Encounter: 12/12/17 Internal Medicine - H&P: HPI History of present illness: Ms. Cunningham is a 77 year old female All Systems PM: A 10-system review of systems was performed and is negative for pertinent findings except as documented above in the HPI. - Constitutional Vitals: Temp Pulse Resp BP Pulse Ox 99.4 F 94 16 119/69 94 12/12/17 19:11 12/12/17 19:11 12/12/17 19:11 12/12/17 19:11 12/12/17 19:11 Internal Med - H&P Results - Labs CBC & Chem 7: 12/12/17 16:19 12/12/17 16:19 - Attending Attestation 1. Community-acquired pneumonia Continue Rocephin and azithromycin Sputum and blood cultures 2. Hypothyroidism, continue Synthroid 3. Chronic hyponatremia, continue salt tablets 4. Depression, stable The patient will be admitted for observation, full code. Time spent on this admission 40 minutes. I have personally performed a face to face evaluation on this patient. I have reviewed and agree with the care plan. History and Exam by me shows:
[2017-12-12] MEDS ORDERED: Naloxone 0.4 MG/ML INJ IVP PRN (20:46)
[2017-12-12] MEDS ORDERED: Acetaminophen 325 MG TABLET PO PRN (20:46)
[2017-12-12] MEDS: traZODone 50 MG TABLET PO SCH (21:31)
[2017-12-13] MEDS: hydrALAZINE 25 MG TABLET PO SCH ×4 (00:42→23:56)
[2017-12-13] MEDS: Ondansetron 4 MG/2 ML VIAL IVP SCH ×5 (00:42→23:56)
[2017-12-13 04:23] LABS: Basophils % 0.1 %; Eosinophils % 0.1 %; Hematocrit 30.4 % (35.3-44.9); Immature Granulocytes % 0.5 % (0-4); Lymphocytes # 1.3 K/mcL (0.6-4.6); Lymphocytes % 8.8 %; Mean Corpuscular HGB Conc 32.9 g/dL (31.6-35.5); Mean Corpuscular Hemoglobin 28.3 pg (28.0-33.3); Mean Corpuscular Volume 86.1 fL (83.0-100.0); Mean Platelet Volume 9.9 fL (9.4-12.4); Monocytes % 6.5 %; Neutrophils # 12.6 K/mcL (1.6-8.9); Platelet Count 187 K/mcL (140-400); Red Blood Count 3.53 M/mcL (3.82-4.97); Red Cell Distribution Width 15.2 % (11.5-14.5)
[2017-12-13 04:43] LABS: BUN/Creatinine Ratio 21 (6-26); Blood Urea Nitrogen 14 mg/dL (8-23); Calcium 8.3 mg/dL (8.6-10.3); Carbon Dioxide 27 mEq/L (23-29); Chloride 104 mEq/L (98-107); Glucose 92 mg/dL (70-105); Osmolality,Calculated 282 (280-300); Potassium 3.7 mEq/L (3.5-5.1); Sodium 136 mEq/L (136-145); eGFR For African Americans > 60 (> 60); eGFR For Non-African Americans > 60 (> 60)
[2017-12-13] MEDS: *HR* Heparin 5,000 UNIT/ML VIAL SQ SCH ×2 (05:53→17:23)
[2017-12-13] MEDS: BuPROPion XL (24 HR) 150 MG TABLET PO SCH (09:44)
[2017-12-13] MEDS: Multivit/Ca/Min/Fe/FA 1 TAB TABLET PO SCH (09:44)
[2017-12-13] MEDS: Aspirin Enteric Coated 81 MG Tablet PO SCH (09:44)
[2017-12-13] MEDS: cefTRIAXone 1,000 MG in Water for inj. (sterile) 20 ML 10 ML IVP SCH (09:48)
--- NOTE | 2017-12-13 17:02 | Internal Med Progress Note ---
Date of Encounter: 12/13/17 Time of Encounter: 15:30 - Assessment and plan (1) Community acquired pneumonia Current Visit: Yes Status: Acute Assessment and plan: Dramatic with shortness of breath, weakness and fatigue for 1 week. CXR concerning for right lower lobe pneumonia. WBC 16 K, lactic acid normal. Continue IV azithromycin, ceftriaxone. Urinary antigens, respiratory PCR pending Qualifiers: Laterality: right Lung location: unspecified part of lung Qualified Code( s): J18.9 - Pneumonia, unspecified organism (2) Nausea & vomiting Current Visit: Yes Status: Acute Assessment and plan: reported nonretractable nausea vomiting 1 day prior to presentation. Reports had similar symptoms. Suspect gastroenteritis. No further nausea or vomiting. Remains weak and fatigued but overall improved. Continue PRN antiemtics. Qualifiers: Vomiting type: unspecified Vomiting Intractability: unspecified Qualified Code(s): R11.2 - Nausea with vomiting, unspecified (3) Fall Current Visit: Yes Status: Acute Assessment and plan: In the setting of generalized weakness associated with pneumonia and suspected gastroenteritis. Still with some weakness and fatigue, overall improved. Do not suspect she will have any PT needs at time of discharge. Qualifiers: Encounter type: initial encounter Qualified Code(s): W19.XXXA - Unspecified fall, initial encounter (4) Hypertension Current Visit: Yes Status: Chronic Assessment and plan: per hx. BP variable but overall acceptable. Continue home BP medication. Monitor BP and titrate PRN Qualifiers: Hypertension type: essential hypertension Qualified Code(s): I10 - Essential (primary) hypertension (5) Hypothyroidism Current Visit: Yes Status: Chronic Assessment and plan: per hx. Cont home levothyroxine Qualifiers: Hypothyroidism type: acquired Qualified Code(s): E03.9 - Hypothyroidism, unspecified (6) DVT prophylaxis Current Visit: Yes Status: Acute Assessment and plan: heparin - Subjective Interval history: Seen and examined at bedside, patient is new to me. Information obtained from chart review and patient report. Says she feels much better on today's exam. No further abdominal pain or vomiting. She reports has been has GI virus and suspects that her symptoms came from. She has not been symptomatically from pneumonia. Afebrile, no cough. No chest pain or shortness of breath - Constitutional Vitals: Temp Pulse Resp BP Pulse Ox 98.5 F 72 17 136/69 95 12/13/17 15:00 12/13/17 15:00 12/13/17 15:00 12/13/17 15:00 12/13/17 15:00 General appearance: Present: cooperative, A&O X 3, no acute distress, answers questions appropriately - Head Head exam: Present: atraumatic, normocephalic - Eye Eye exam: Present: PERRL, conjuntiva pink, sclera anicteric Pupils: Present: PERRL - Neck Neck exam general surgery: Present: supple, trachea midline. Absent: lymphadenopathy - Respiratory Respiratory exam: Present: rhonchi. Absent: accessory muscle use, rales, wheezes - Cardiovascular Cardiovascular exam: Present: RRR, +S1, +S2. Absent: diastolic murmur, gallop, rubs, systolic murmur - GI/Abdominal GI/Abdominal exam: Present: normal bowel sounds, soft, no peritoneal signs. Absent: distended, tenderness - Extremities Exam Extremities exam: Present: warm, radial pulses palpable and symmetrical. Absent : calf tenderness, cyanotic, pedal edema - Neurological Exam Neurological exam: Present: CN II-XII intact, oriented X3, no focal deficits. Absent: pronater drift, facial droop, speech deficit - Skin Skin exam: Present: dry, intact Internal Medicine: Result - Labs CBC & Chem 7: 12/13/17 03:28 12/13/17 03:28 Labs: Short CBC 12/13/17 Range/Units 03:28 WBC 15.0 H (4.3-11.1) K/mcL Hgb 10.0 L D (11.5-15.4) g/dL Hct 30.4 L (35.3-44.9) % Plt Count 187 (140-400) K/mcL Neutrophils # 12.6 H (1.6-8.9) K/mcL BMP 12/13/17 03:28 Sodium 136 Potassium 3.7 Chloride 104 Carbon Dioxide 27 BUN 14 Creatinine 0.68 Glucose 92 Calcium 8.3 L Consult Discharge Plan - Plan Referrals: Phuc Lemus MD [Primary Care Provider] -
[2017-12-13] MEDS: Azithromycin 500 MG in D5% in Water 250 ML IVPB SCH (17:22)
[2017-12-13] MEDS: traZODone 50 MG TABLET PO SCH (22:35)
[2017-12-14] MEDS: Ondansetron 4 MG/2 ML VIAL IVP SCH ×2 (05:51→12:39)
[2017-12-14] MEDS: *HR* Heparin 5,000 UNIT/ML VIAL SQ SCH (05:51)
[2017-12-14 05:56] LABS: Hematocrit 32.3 % (35.3-44.9); Hemoglobin 10.4 g/dL (11.5-15.4); Mean Corpuscular HGB Conc 32.2 g/dL (31.6-35.5); Mean Corpuscular Hemoglobin 28.3 pg (28.0-33.3); Mean Platelet Volume 10.6 fL (9.4-12.4); Platelet Count 200 K/mcL (140-400); Red Blood Count 3.67 M/mcL (3.82-4.97); Red Cell Distribution Width 15.2 % (11.5-14.5)
[2017-12-14 07:09] LABS: Adenovirus Not Detected (Not Detect); Bordetella Pertussis Not Detected (Not Detect); Chlamydophila pneumoniae Not Detected (Not Detect); Coronavirus 229E Not Detected (Not Detect); Coronavirus HKU1 Not Detected (Not Detect); Coronavirus NL63 Not Detected (Not Detect); Coronavirus OC43 Not Detected (Not Detect); Human Metapneumovirus Not Detected (Not Detect); Human Rhinovirus/Enterovirus Not Detected (Not Detect); Influenza A Subtype 2009 H1 Not Detected (Not Detect); Influenza A Untypeable Not Detected (Not Detect); Influenza B Not Detected (Not Detect); Mycoplasma pneumoniae Not Detected (Not Detect); Parainfluenza Virus 1 Not Detected (Not Detect); Parainfluenza Virus 2 Not Detected (Not Detect); Parainfluenza Virus 3 Not Detected (Not Detect); Parainfluenza Virus 4 Not Detected (Not Detect); Respiratory Syncytial Virus Not Detected (Not Detect)
[2017-12-14] MEDS: cefTRIAXone 1,000 MG in Water for inj. (sterile) 20 ML 10 ML IVP SCH (10:19)
[2017-12-14] MEDS: BuPROPion XL (24 HR) 150 MG TABLET PO SCH (10:20)
[2017-12-14] MEDS: Aspirin Enteric Coated 81 MG Tablet PO SCH (10:20)
[2017-12-14] MEDS: Multivit/Ca/Min/Fe/FA 1 TAB TABLET PO SCH (10:20)
[2017-12-14] MEDS: hydrALAZINE 25 MG TABLET PO SCH (10:20)
[2017-12-14 11:00] VITALS: BP 121/65
--- NOTE | 2017-12-14 11:18 | Discharge Summary ---
Date of Encounter: 12/14/17 Time of Encounter: 08:30 - Discharge Diagnosis (1) Bacterial pneumonia Priority: Primary Status: Suspected Comments: presented with shortness of breath, weakness and fatigue for 1 week. CXR concerning for right lower lobe pneumonia. Suspect community acquired bacterial pneumonia with elevated WBC, cough and shortness of breath. WBC 16 K , lactic acid normal. Urinary antigens, respiratory PCR negative. WBC normalized. Received 2 doses IV azithromycin, ceftriaxone. Discharge home on Levaquin, to complete a total of 7 days. Recommend follow-up with PCP within 1- 2 weeks. (2) Nausea & vomiting Priority: Primary Status: Resolved Comments: reported nonretractable nausea vomiting 1 day prior to presentation. Reports had similar symptoms. Suspect gastroenteritis. No further nausea or vomiting. Resolved at time of discharge Qualifiers: Vomiting type: unspecified Vomiting Intractability: unspecified Qualified Code(s): R11.2 - Nausea with vomiting, unspecified (3) Fall Priority: Primary Status: Resolved Comments: on day of presentation. Head CT, C-spine CT nonacute. No obvious injury or trauma. No lightheadedness, dizziness or vertigo. Occurred in the setting of generalized weakness secondary to pneumonia and suspected gastroenteritis. Still with some weakness and fatigue but significantly improved. No further workup indicated at this time Qualifiers: Encounter type: initial encounter Qualified Code(s): W19.XXXA - Unspecified fall, initial encounter (4) Hypertension Priority: Secondary Status: Chronic Comments: per hx. BP variable but overall acceptable. Continue home BP medication. Qualifiers: Hypertension type: essential hypertension Qualified Code(s): I10 - Essential (primary) hypertension (5) Hypothyroidism Priority: Secondary Status: Chronic Comments: per hx. Cont home levothyroxine Qualifiers: Hypothyroidism type: acquired Qualified Code(s): E03.9 - Hypothyroidism, unspecified - Discharge Medications Prescriptions: levoFLOXacin [Levaquin] 750 mg PO DAILY #5 tablet Home Medications: Aspirin [Lo-Dose Aspirin EC] 81 mg PO DAILY 03/31/17 [History] Atorvastatin Calcium [Lipitor] 80 mg PO HS 03/31/17 [History] Calcium Carbonate [Calcium] 500 mg PO DAILY 03/31/17 [History] Donepezil [Aricept] 10 mg PO HS 03/31/17 [History] Levothyroxine [Synthroid] 50 mcg PO 0630 03/31/17 [History] Meclizine HCl [Verticalm] 25 mg PO DAILY PRN 03/31/17 [History] Mv-Mn/FA/Vit K/Lycop/Lut/Coq10 [Daily Multivitamin Capsule] 1 each PO DAILY [History] Omeprazole [PriLOSEC] 40 mg PO DAILY 03/31/17 [History] traZODone [TraZODone] 50 mg PO HS 03/31/17 [History] hydrALAZINE [HydrALAZINE] 50 mg PO Q8HR #180 tablet 04/02/17 [Rx] DULoxetine [Cymbalta] 90 mg PO DAILY 04/04/17 [History] Oxybutynin [Ditropan] 5 mg PO BID 04/04/17 [History] Potassium Chloride [Klor-Con 10] 10 meq PO BID 04/04/17 [History] BuPROPion XL (24 HR) [Wellbutrin Xl] 150 mg PO DAILY 12/12/17 [History] Carvedilol 3.125 mg PO BID 12/12/17 [History] Sodium Chloride 1 gm PO BID 12/12/17 [History] levoFLOXacin [Levaquin] 750 mg PO DAILY #5 tablet 12/14/17 [Rx] Allergies/Adverse Reactions: 3 Allergy/AdvReac Type Severity Reaction Status Date / Time Penicillins Allergy Rash Verified 04/04/17 11:54 codeine AdvReac Vomiting Verified 04/04/17 11:54 Date of admission: 12/12/17 18:06 Primary care physician: Phuc Lemus, Discharging clinician: Jerri Garcia Anticipated date of discharge: 12/14/17 - Patient Status Disposition: Home, Self-Care Condition: Good Functional capacity at discharge: independent ambulation Overall status at discharge: patient is progressing back to baseline - Discharge Instructions Instructions: Community-acquired Pneumonia (DC), Levofloxacin (By mouth), Gastroenteritis (DC) Follow Up With: Phuc Lemus MD [Primary Care Provider] - (Please call and make an appointment within 1-2 weeks after discharge) - Diet and Activity Activity: increase activity as tolerated Diet: advance to your usual diet Interval History: Seen and examined at bedside, says she feels much better and would like to go home today. No chest pain or shortness of breath. Has nonproductive cough. No fevers or chills. No further nausea or vomiting Hospital course: See assessment and plan for hospital course - Time Spent with Patient Total time spent providing and/or coordinating discharge services: - Constitutional Vitals: Temp Pulse Resp BP Pulse Ox 97.3 F L 75 16 121/65 94 12/14/17 10:59 12/14/17 10:59 12/14/17 10:59 12/14/17 10:59 12/14/17 10:59 General appearance: Present: cooperative, A&O X 3, no acute distress, answers questions appropriately - Head Head exam: Present: atraumatic, normocephalic - Eye Eye exam: Present: PERRL, conjuntiva pink, sclera anicteric Pupils: Present: PERRL - Neck Neck exam general surgery: Present: supple, trachea midline. Absent: lymphadenopathy - Respiratory Respiratory exam: Present: CTAB, rhonchi. Absent: accessory muscle use, rales, wheezes - Cardiovascular Cardiovascular exam: Present: RRR, +S1, +S2. Absent: diastolic murmur, gallop, rubs, systolic murmur - GI/Abdominal GI/Abdominal exam: Present: normal bowel sounds, soft, no peritoneal signs. Absent: distended, tenderness - Extremities Exam Extremities exam: Present: warm, radial pulses palpable and symmetrical. Absent : calf tenderness, cyanotic, pedal edema - Neurological Exam Neurological exam: Present: CN II-XII intact, oriented X3, no focal deficits. Absent: pronater drift, facial droop, speech deficit - Skin Skin exam: Present: dry, intact
[2017-12-14] MEDS: Azithromycin 500 MG in D5% in Water 250 ML IVPB SCH (15:03)
--- NOTE | 2017-12-16 15:29 | Electrocardiograph Report ---
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
== END 2017-12-14 16:05 | disposition home or self-care (01) ==
LOC: EMEROO 14:37 → 3BNU 14:37
PROVIDERS: ADMIT Nurse Practitioner; ATTEND Registered Nurse

== ENCOUNTER 2018-09-27 10:58 | Observation (INO) ==
[2018-09-27 11:35] LABS: Basophils % 0.1 %; Eosinophils % 0.1 %; Hematocrit 32.8 % (35.3-44.9); Hemoglobin 11.2 g/dL (11.5-15.4); Immature Granulocytes % 0.8 % (0-4); Lymphocytes # 0.6 K/mcL (0.6-4.6); Lymphocytes % 4.2 %; Mean Corpuscular HGB Conc 34.1 g/dL (31.6-35.5); Mean Corpuscular Hemoglobin 31.4 pg (28.0-33.3); Mean Corpuscular Volume 91.9 fL (83.0-100.0); Mean Platelet Volume 8.6 fL (9.4-12.4); Monocytes # 1.7 K/mcL (0.0-1.3); Monocytes % 12.8 %; Neutrophils # 10.7 K/mcL (1.6-8.9); Platelet Count 171 K/mcL (140-400); Red Blood Count 3.57 M/mcL (3.82-4.97); Red Cell Distribution Width 13.2 % (11.5-14.5)
[2018-09-27 11:52] LABS: Troponin I < 0.03 ng/mL (< 0.04)
[2018-09-27 11:53] LABS: Alanine Aminotransferase 25 Units/L (7-52); Albumin 3.2 g/dL (3.5-5.7); Albumin/Globulin Ratio 1.3 (1.1-2.2); Alkaline Phosphatase 50 Units/L (34-104); Aspartate Amino Transferase 24 Units/L (13-39); BUN/Creatinine Ratio 27 (6-26); Bilirubin,Total 0.6 mg/dL (0.3-1.0); Blood Urea Nitrogen 19 mg/dL (8-23); Calcium 8.5 mg/dL (8.6-10.3); Carbon Dioxide 27 mEq/L (23-29); Chloride 100 mEq/L (98-107); Creatine Kinase 49 Units/L (30-223); Globulin 2.5 g/dL (2.4-3.5); Glucose 133 mg/dL (70-105); Osmolality,Calculated 280 (280-300); Potassium 3.5 mEq/L (3.5-5.1); Sodium 133 mEq/L (136-145); Total Protein 5.7 g/dL (6.4-8.9); eGFR For Non-African Americans > 60 (> 60)
--- NOTE | 2018-09-27 13:01 | Emergency Department Note ---
Disposition Clinical Impression: Frequent falls, Weakness, Weight loss Leukocytosis Qualifiers: Leukocytosis type: unspecified Qualified Code(s): D72.829 - Elevated white blood cell count, unspecified UTI (urinary tract infection) Qualifiers: Urinary tract infection type: site unspecified Hematuria presence: without hematuria Qualified Code(s): N39.0 - Urinary tract infection, site not specified Disposition: Admitted As Inpatient Condition: Good Forms: ED Satisfaction Letter General Adult HPI - General Chief complaint: ED Fall Stated complaint: fall Time Seen by Provider: 09/27/18 11:10 Source: patient Limitations: no limitations Nursing Notes Reviewed: Yes Vital Signs Reviewed: Yes - History of Present Illness HPI Narrative: Patient with past medical history of hypertension, hyperlipidemia, thyroid disease presenting today for evaluation of 2 falls in 3 days. Patient's initial fall was while she was in the garage. She states that her legs got weak and she fell over. She fell again today while she was in the bathroom trying to go to the bathroom. She states no associated lightheadedness dizziness or loss of consciousness. She states her legs just "gave out on her". She did hit her head 3 days ago but did not seek medical evaluation. She does have ecchymosis around the right eye lid from this fall. Tenderness to the right maxilla. She complains of no other pain. She has no cervical thoracic or lumbar tenderness. She has no chest back or abdominal tenderness. Pelvis is stable without tenderness. She did ambulate after her walking event. She is concerned because she has had weight loss of approximately 20 pounds over the last 2 months. Patient states that she has had a normal appetite. She did have an episode of vomiting today after her fall but states that this is unusual for her. Patient does have concerns about going home with her frequent falls. She will undergo further evaluation with both CT scans of the head and orbits as well as x-rays of the chest and pelvis. Weakness workup including evaluation of cardiac and infectious pathology has been ordered. Notified by nurse that patient complains of foul-smelling urine. Review of systems positive for weight loss, falls, one episode of vomiting, foul-smelling urine. Pain Scale: 0 - Related Data Home Medications Medication Instructions Recorded Confirmed Aspirin [Lo-Dose Aspirin EC] 81 mg PO DAILY 03/31/17 12/12/17 Atorvastatin Calcium [Lipitor] 80 mg PO HS 03/31/17 09/27/18 Calcium Carbonate [Calcium] 500 mg PO DAILY 03/31/17 12/12/17 Donepezil [Aricept] 10 mg PO HS 03/31/17 09/27/18 Levothyroxine [Synthroid] 50 mcg PO 0630 03/31/17 09/27/18 Meclizine HCl [Verticalm] 25 mg PO DAILY PRN 03/31/17 12/12/17 Mv-Mn/FA/Vit K/Lycop/Lut/Coq10 1 each PO DAILY 03/31/17 12/12/17 [Daily Multivitamin Capsule] Omeprazole [PriLOSEC] 40 mg PO DAILY 03/31/17 09/27/18 traZODone [TraZODone] 50 mg PO HS 03/31/17 09/27/18 DULoxetine [Cymbalta] 90 mg PO DAILY 04/04/17 12/12/17 Oxybutynin [Ditropan] 5 mg PO BID 04/04/17 12/12/17 Potassium Chloride [Klor-Con 10] 10 meq PO DAILY 04/04/17 09/27/18 BuPROPion XL (24 HR) [Wellbutrin 150 mg PO DAILY 12/12/17 12/12/17 Xl] Sodium Chloride [Sodium Chloride 1 gm PO BID 12/12/17 09/27/18 Tab] Carvedilol 12.5 mg PO BID 09/27/18 09/27/18 Previous Rx's Medication Instructions Recorded hydrALAZINE [HydrALAZINE] 50 mg PO Q8HR #180 tablet 04/02/17 Allergies Allergy/AdvReac Type Severity Reaction Status Date / Time Penicillins Allergy Rash Verified 09/27/18 12:17 codeine AdvReac Vomiting Verified 09/27/18 12:17 All systems ED: reviewed and negative except as stated. Review of Systems: As Per HPI Past Medical History - Past Medical History Medical history: Reports: hyperlipidemia, hypertension, thyroid disease, other Surgical history: Reports: appendectomy, hysterectomy, knee replacement Psychiatric history: Reports: depression - Social History Smoking Status: Never smoker Smokeless Tobacco Status: No Alcohol use: Reports: none Drug use: Reports: none Physical Exam General: Well appearing, nontoxic, no acute distress Head: Normocephalic Atraumatic Eyes: PERRL, EOMI ENT: Airway patent, no stridor Neck: supple Chest: Lungs clear to auscultation bilateral Cardiac: Regular rate and rhythm Abdomen: soft, nontender, nondistended; no guarding, rebound, or tenderness to percussion Musculoskeletal: No tenderness throughout the cervical lumbar or thoracic spine. Pelvis is stable without tenderness to the pelvis or hips bilaterally. Calves symmetric, nontender Skin: No rash, normal skin tone; ecchymosis the right eye Neuro: Alert and Oriented to person, place; No focal deficit, CN 2-12 symmetric and intact. Strength and sensation throughout the upper and lower extremities is intact. - General Limitations: no limitations General appearance: alert, in no apparent distress Course - Reevaluation(s) Reevaluation #1: Current Markell awaiting urinalysis. Patient does have a leukocytosis. Trauma imaging was negative. There is no evidence of pneumonia. Due to her frequent falls and family's concern about her not being able to go home she will be admi tted. Patient likely has UTI. Reevaluation #2: Urinalysis concerning for UTI. Ceftriaxone given. Culture ordered. - Consultations Consultation #1: Discussed with hospitalist. Patient accepted for admission. Vital Signs Temperature 99.1 F 09/27/18 11:05 Pulse Rate 85 09/27/18 11:05 Respiratory Rate 16 09/27/18 11:05 Blood Pressure 127/73 09/27/18 11:05 O2 Sat by Pulse Oximetry 94 09/27/18 11:05 Temperature 99.1 F 09/27/18 11:05 Pulse Rate 82 09/27/18 12:49 Respiratory Rate 17 09/27/18 12:49 Blood Pressure 137/70 09/27/18 12:49 O2 Sat by Pulse Oximetry 95 09/27/18 12:49 Oxygen Delivery Oxygen Delivery Room Air Medical Decision Making - Lab Data Result diagrams: 09/27/18 11:21 09/27/18 11:21 Lab Results 09/27/18 09/27/18 09/27/18 Range/Units 11:21 11:21 13:00 WBC 13.0 H (4.3-11.1) K/mcL RBC 3.57 L (3.82-4.97) M/mcL Hgb 11.2 L (11.5-15.4) g/dL Hct 32.8 L (35.3-44.9) % MCV 91.9 (83.0-100.0) fL MCH 31.4 (28.0-33.3) pg MCHC 34.1 (31.6-35.5) g/dL RDW 13.2 (11.5-14.5) % Plt Count 171 (140-400) K/mcL MPV 8.6 L (9.4-12.4) fL Immature Gran % 0.8 (0-4) % Seg Neutrophils % 82.0 % Lymphocytes % 4.2 % Monocytes % 12.8 % Eosinophils % 0.1 % Basophils % 0.1 % Neutrophils # 10.7 H (1.6-8.9) K/mcL Lymphocytes # 0.6 (0.6-4.6) K/mcL Monocytes # 1.7 H (0.0-1.3) K/mcL Eosinophils # 0.0 (0.0-0.6) K/mcL Basophils # 0.0 (0.0-0.2) K/mcL Sodium 133 L (136-145) mEq/L Potassium 3.5 (3.5-5.1) mEq/L Chloride 100 (98-107) mEq/L Carbon Dioxide 27 (23-29) mEq/L BUN 19 (8-23) mg/dL Creatinine 0.71 (0.60-1.20) mg/dL Est GFR ( Amer) > 60 (> 60) Est GFR (Non-Af Amer) > 60 (> 60) BUN/Creatinine Ratio 27 H (6-26) Glucose 133 H (70-105) mg/dL Calculated Osmolality 280 (280-300) Calcium 8.5 L (8.6-10.3) mg/dL Total Bilirubin 0.6 (0.3-1.0) mg/dL AST 24 (13-39) Units/L ALT 25 (7-52) Units/L Alkaline Phosphatase 50 (34-104) Units/L Creatine Kinase 49 (30-223) Units/L Troponin I < 0.03 (< 0.04) ng/mL Serum Total Protein 5.7 L (6.4-8.9) g/dL Albumin 3.2 L (3.5-5.7) g/dL Globulin 2.5 (2.4-3.5) g/dL Albumin/Globulin Ratio 1.3 (1.1-2.2) TSH 0.810 (0.340-5.600) mcIU/mL Urine Color Yellow (Yellow) Urine Clarity Cloudy A (Clear) Urine pH 6.5 (5.0-8.0) pH Units Ur Specific [place] 1.013 (1.010-1.025) Urine Protein 100 H (Neg-Trace) mg/dL Urine Glucose (UA) Normal (Normal) mg/dL Urine Ketones Negative (Negative) mg/dL Urine Blood Negative (Negative) Urine Nitrite Negative (Negative) Urine Bilirubin Negative (Negative) Urine Urobilinogen Normal (Normal) mg/dL Ur Leukocyte Esterase Moderate H (Negative) Urine Microscopic RBC 5-15 H (0-3) per hpf Urine Microscopic WBC 50-100 H (0-3) per hpf Ur Squamous Epith Cells Many H (None-Few) per lpf Urine Bacteria Many H (None-Few) per hpf Hyaline Casts None Seen (None-Few) per lpf Ur Culture Indicated? NO. A (NO)
[2018-09-27 13:09] LABS: Bilirubin,Urine Negative (Negative); Blood,Urine Negative (Negative); Clarity,Urine Cloudy (Clear); Color,Urine Yellow (Yellow); Glucose,Urine (UA) Normal (Normal); Ketones,Urine Negative (Negative); Leukocyte Esterase,Urine Moderate (Negative); Nitrite,Urine Negative (Negative); PH,Urine 6.5 pH Units (5.0-8.0); Protein,Urine 100 mg/dL (Neg-Trace); Specific Gravity,Urine 1.013 (1.010-1.025); Urobilinogen,Urine Normal (Normal)
[2018-09-27 13:11] LABS: Bacteria,Urine Many per hpf (None-Few); Hyaline Casts,Urine None Seen per lpf (None-Few); Squamous Epithelial Cell,Urine Many per lpf (None-Few); WBC,Urine 50-100 per hpf (0-3)
[2018-09-27] MEDS ORDERED: cefTRIAXone 1,000 MG in Water for inj. (sterile) 20 ML 10 ML IVP STA (13:20)
[2018-09-27] MEDS: 0.9 % Sodium Chloride 1,000 ML IVC SCH ×2 (14:27→18:08)
--- NOTE | 2018-09-27 15:02 | Internal Med History&Physical ---
Date of Encounter: 09/27/18 Time of Encounter: 13:45 Internal Medicine - H&P: HPI Chief complaint: Fall at home, w/o associated dizziness , Admitted From: Home History of present illness: Ms. Cunningham is a 78 year old female whom is being admitted to the observation unit from the emergency room for the chief complaint of fall at home. She is acco mpanied by her and family, whom states that this is her second fall within 48 hours. Appearantly she initially fell 2 days ago in the garage, "where her legs just went out from under her". Her states that she sustained a minor laceration of the right eyebrow and a contusion of the right periorbital area. Her states today that around 8:30 AM he heard a "thump" downstairs, and found the patient lying in between the commode and the bathroom closet. He states she apparently she had fallen off the commode. She denied any dizziness, blurred vision, weakness of upper, or lower extremities. blurred vision, dizzinesses, vegal stimulation with bowel movement, chest pain, or other associated s/s with fall this AM. She states that it is unknown to her why she has fallen. She reports that this is a new onset in the past 2 months. and has experienced more unexplained falls, and has started to use a walker in the home as it makes her feel more "safe" . Her also states that she has had a rapid onset of the weight loss of approximately 20 pounds over the past couple months. And that they have found that she has thyroid nodules. She is positive for past medical history of hypertension hyperlipidemia and thyroid disease. Patient is resting comfortably in the emergency room, and is assessed at the bedside. She denies any weakness in the upper and lower extremities, dizziness, blurred vision, chest pain, dyspnea, shortness of breath, nausea or vomiting. She sates she has mild right abdominal pain from her previous fall 2 days ago. 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 ROS is positive for chronic constipation with slow transit and large bulky stools, reporting usual BM pattern of 2 BM's per week, and straining to move the bowel. other grover is negative than listed in HPI . Review of record shows normal Venous doppler right lower ext. 08/2018 Positive cholelithiasis without evidence of cholecystitis 08/20/2018 EKG was a normal sinus rhythm 08/20/2018 CT of the abdomen completed on 08/20/2018 showed mild left hydronephrosis and hydroureter with minimal left aric-nephrotic stranding, nonspecific but can be seen in the setting of a recently passed stone, dilatation of the collecting system may be related to overdistention of the bladder, severe diverticulosis is noted as well as cholelithiasis status post hysterectomy Carotid Doppler study of 2017 showed bilateral carotid minimal plaquing throughout Past Med Surg Social Fam HX - Past Medical History Source: patient Medical history: hyperlipidemia, hypertension, thyroid disease, other Additional medical history: chronic constipation Psychiatric history: depression - Past Surgical History Surgical History: appendectomy, hysterectomy, knee replacement Additional surgical history: left knee replacement - Social History Smoking Status: Never smoker Smokeless Tobacco Status: No Alcohol use: none Drug use: none - Family History Brother Hx Family Cardiac Disorders: Yes (CABG) Hx Family Cancer: Yes Hx Family Endocrine Disorder: Yes (diabetes) Internal Medicine - H&P: Meds Aspirin [Lo-Dose Aspirin EC] 81 mg PO DAILY 03/31/17 [History] Atorvastatin Calcium [Lipitor] 80 mg PO HS 03/31/17 [History] Calcium Carbonate [Calcium] 500 mg PO DAILY 03/31/17 [History] Donepezil [Aricept] 10 mg PO HS 03/31/17 [History] Levothyroxine [Synthroid] 50 mcg PO 0630 03/31/17 [History] Meclizine HCl [Verticalm] 25 mg PO DAILY PRN 03/31/17 [History] Mv-Mn/FA/Vit K/Lycop/Lut/Coq10 [Daily Multivitamin Capsule] 1 each PO DAILY 03/31/17 [History] Omeprazole [PriLOSEC] 40 mg PO DAILY 03/31/17 [History] traZODone [TraZODone] 50 mg PO HS 03/31/17 [History] hydrALAZINE [HydrALAZINE] 50 mg PO Q8HR #180 tablet 04/02/17 [Rx] DULoxetine [Cymbalta] 90 mg PO DAILY 04/04/17 [History] Oxybutynin [Ditropan] 5 mg PO BID 04/04/17 [History] Potassium Chloride [Klor-Con 10] 10 meq PO DAILY 04/04/17 [History] BuPROPion XL (24 HR) [Wellbutrin Xl] 150 mg PO DAILY 12/12/17 [History] Sodium Chloride [Sodium Chloride Tab] 1 gm PO BID 12/12/17 [History] Carvedilol 12.5 mg PO BID 09/27/18 [History] Allergy/AdvReac Type Severity Reaction Status Date / Time Penicillins Allergy Rash Verified 09/27/18 12:17 codeine AdvReac Vomiting Verified 09/27/18 12:17 All Systems PM: A 10-system review of systems was performed and is negative for pertinent findings except as documented above in the HPI. 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 has sustained a rapid weight loss of 20 pounds, during that time. Has not had f/u on nodules. - EENT Eyes: no change in vision, no discharge, no pain, no photophobia Ears: no ear discharge, no ear pain, no tinnitus Nose, mouth and throat: no dysphagia, no nasal discharge, no neck pain, no sore throat - Cardiovascular Cardiovascular ROS IM: no chest pain, no diaphoresis, no dyspnea, no lightheadedness, no palpitations, no syncope - Respiratory Respiratory: as per HPI - Gastrointestinal Gastrointestinal: abdominal pain (right lower quad new onset after fall 2 days ago ), constipation, no diarrhea, no hematemesis, no hematochezia, no melena, no nausea, no vomiting - Genitourinary Genitourinary: no change in urinary stream, no dysuria, no flank pain, no hematuria Additional comments: foul smelling urine Additional comments: JASPAL dt DUB 4 years ago - Musculoskeletal Musculoskeletal ROS IM: no numbness, no tingling - Integumentary Integumentary IM: no rash, no unusual bruising - Neurological Neurological ROS: no confusion, no convulsions, no focal weakness, no numbness, no tingling, no tremor(s) - Psychiatric Psychiatric: as per HPI - Endocrine Endocrine IM: as per HPI - Hematologic/Lymphatic Hematologic/Lymphatic: no easy bruising - Allergic/Immunologic Allergic/Immunologic: as per HPI - Constitutional Vitals: Temp Pulse Resp BP Pulse Ox 99.1 F 79 13 167/90 97 09/27/18 11:05 09/27/18 13:59 09/27/18 13:59 09/27/18 13:59 09/27/18 13:59 General appearance: Present: A&O X 3, pleasant, no acute distress Exam: Mrs. Cunningham is a 78-year-old female who is being admitted to the observation unit for a fall at home 2 in the past 48 hours, without no neurological deficit. She denies any chest pain shortness of breath palpitations weakness in upper or lower extremity dizziness blurred vision syncope. Past history is positive for hypertension, hyperlipidemia, and hypothyroidism, with new onset of reported t hyroid nodules, and 20 pound weight loss within the past 2 months . She states that she has experienced more frequent falls in the past few months without any associated neurological deficit and has started using a walker that makes her feel safe within her own home. Today she was found by her in the downstairs bathroom after he heard a "bump" around 8:30 AM this morning and found her lying between the commode and the bathroom closet. Apparently she had sloughed or following off the commode she denied any loss of consciousness hitting her head or any known injury. Currently she denies any chest pain,shortness of breath, dizziness, fatigue,palpitations, dyspnea,or shortness of breath ,headache, dizziness ,or blurred vision. Review of x-ray of the pelvis, is unremarkable with no acute osseous abnormality, however,Given the degree of osteopenia nondisplaced fracture may be radiographically occult, consider MRI. CT of the head /orbits without contrast shows no acute infarct or intracranial a cranial abnormality Chest x-ray shows no acute process Patient will be admitted to the observation unit for further evaluation and testing and treatment - Head Additional comments: Steri-Strips are appreciated over the lateral aspect of the right eyebrow there is some ecchymosis noted underneath the right - Eye Eye exam: Present: EOMI, PERRL, conjuntiva pink, sclera anicteric Pupils: Present: PERRL - ENT ENT exam: Present: mucous membranes moist, normal external ear exam, normal oropharynx - Neck Neck exam general surgery: Present: full ROM, supple, trachea midline - Respiratory Respiratory exam: Present: CTAB. Absent: accessory muscle use, rales, rhonchi, wheezes - Cardiovascular Cardiovascular exam: Present: RRR, +S1, +S2. Absent: diastolic murmur, gallop, rubs, systolic murmur - GI/Abdominal GI/Abdominal exam: Present: normal bowel sounds, soft, no peritoneal signs. Absent: distended, tenderness - Extremities Exam Extremities exam: Present: full ROM, normal capillary refill, normal inspection, warm, radial pulses palpable and symmetrical. Absent: calf tenderness, cyanotic, pedal edema - Back Exam Back exam: Present: full ROM, normal inspection - Neurological Exam Neurological exam: Present: CN II-XII intact, normal gait, oriented X3, no focal deficits, strengths equal and symetr throughout. Absent: pronater drift, facial droop, speech deficit - Psychiatric Psychiatric exam: Present: normal affect, normal mood - Skin Skin exam: Present: dry, intact Internal Med - H&P Results - Labs CBC & Chem 7: 09/27/18 11:21 09/27/18 11:21 Labs: Short CBC 09/27/18 Range/Units 11:21 WBC 13.0 H (4.3-11.1) K/mcL Hgb 11.2 L (11.5-15.4) g/dL Hct 32.8 L (35.3-44.9) % Plt Count 171 (140-400) K/mcL Neutrophils # 10.7 H (1.6-8.9) K/mcL BMP 09/27/18 11:21 Sodium 133 L Potassium 3.5 Chloride 100 Carbon Dioxide 27 BUN 19 Creatinine 0.71 Glucose 133 H Calcium 8.5 L Cardiac Enzymes 09/27/18 Range/Units 11:21 Troponin I < 0.03 (< 0.04) ng/mL Liver Function 09/27/18 Range/Units 11:21 Total Bilirubin 0.6 (0.3-1.0) mg/dL AST 24 (13-39) Units/L ALT 25 (7-52) Units/L Alkaline Phosphatase 50 (34-104) Units/L Albumin 3.2 L (3.5-5.7) g/dL Urine 09/27/18 Range/Units 13:00 Urine Color Yellow (Yellow) Urine Clarity Cloudy A (Clear) Urine pH 6.5 (5.0-8.0) pH Units Ur Specific [place] 1.013 (1.010-1.025) Urine Protein 100 H (Neg-Trace) mg/dL Urine Glucose (UA) Normal (Normal) mg/dL - Impressions ITS Impressions Chest X-Ray 09/27/18 11:10 IMPRESSION: No acute process. D/ / Senthil Merida MD / Senthil Merida MD Interpreting Provider: Senthil Merida MD Head CT 09/27/18 11:10 IMPRESSION: No acute intracranial abnormality. No acute orbital bone fracture. D/ / 09/27/2018 12:22:37 Alejandro Muñoz MD / delores Interpreting Provider: Alejandro Muñoz MD Orbit CT 09/27/18 11:11 IMPRESSION: No acute intracranial abnormality. No acute orbital bone fracture. D/ / 09/27/2018 12:22:37 Alejandro Muñoz MD / delores Interpreting Provider: Alejandro Muñoz MD Pelvis X-Ray 09/27/18 11:11 IMPRESSION: No acute osseous abnormality. Given the degree of osteopenia, nondisplaced fractures may be radiographically occult. If pain or concern for fracture persists, consider MR imaging. D/ / Chari Rainey MD / Chari Rainey MD Interpreting Provider: Chari Rainey MD - Assessment and plan (1) Syncope Current Visit: Yes Status: Acute Assessment and plan: Admit for to observation unit continue with home medications will evaluate with carotid doppler echo Monitor fall precautions monitor vs per floor routine orthostatic vs x 1 telemetry Qualifiers: Syncope type: unspecified Qualified Code(s): R55 - Syncope and collapse (2) Hypertension Current Visit: Yes Status: Chronic Assessment and plan: Will continue with home medications Qualifiers: Hypertension type: essential hypertension Qualified Code(s): I10 - Essential (primary) hypertension (3) Fall Current Visit: Yes Status: Resolved Assessment and plan: fall precautions up with assist Qualifiers: Encounter type: initial encounter Qualified Code(s): W19.XXXA - Unspecified fall, initial encounter (4) Weight loss Current Visit: Yes Status: Acute (5) UTI (urinary tract infection) Current Visit: Yes Status: Acute Assessment and plan: postive for leukorrhea, will send for culture and sensitivity will continue with Rocephin 1 g IV daily Qualifiers: Urinary tract infection type: site unspecified Hematuria presence: without hematuria Qualified Code(s): N39.0 - Urinary tract infection, site not speci fied (6) DVT prophylaxis Current Visit: Yes Status: Acute Assessment and plan: up with assist will start with pharmacy weight based lovnox - Time Spent With Patient Total time spent is greater than 50% in coordination of care (as documented) at patient's floor/unit and/or counseling patient: 25 - 35 minutes
[2018-09-27] MEDS ORDERED: 0.9 % Sodium Chloride 500 ML IVC ONE (16:29)
[2018-09-27 17:01] LABS: Thyroid Stimulating Hormone 0.527 mcIU/mL (0.340-5.600)
[2018-09-27] MEDS ORDERED: Acetaminophen 325 MG TABLET PO PRN (17:43)
[2018-09-27] MEDS ORDERED: *HR* Enoxaparin 60 MG/0.6 ML SYRINGE SQ SCH (18:00)
[2018-09-27] MEDS: traZODone 50 MG TABLET PO SCH (21:29)
[2018-09-27] MEDS: *HR* Heparin 5,000 UNIT/ML VIAL SQ SCH (21:29)
[2018-09-28] MEDS: 0.9 % Sodium Chloride 1,000 ML IVC SCH ×2 (01:55→11:28)
[2018-09-28] MEDS: *HR* Heparin 5,000 UNIT/ML VIAL SQ SCH ×3 (05:14→20:17)
[2018-09-28 06:35] LABS: Basophils % 0.1 %; Eosinophils % 0.1 %; Hematocrit 28.7 % (35.3-44.9); Immature Granulocytes % 0.3 % (0-4); Lymphocytes # 0.8 K/mcL (0.6-4.6); Lymphocytes % 6.6 %; Mean Corpuscular HGB Conc 33.1 g/dL (31.6-35.5); Mean Corpuscular Hemoglobin 31.4 pg (28.0-33.3); Mean Corpuscular Volume 94.7 fL (83.0-100.0); Mean Platelet Volume 9.3 fL (9.4-12.4); Monocytes # 1.1 K/mcL (0.0-1.3); Monocytes % 9.2 %; Neutrophils # 9.8 K/mcL (1.6-8.9); Platelet Count 143 K/mcL (140-400); Red Blood Count 3.03 M/mcL (3.82-4.97); Red Cell Distribution Width 13.3 % (11.5-14.5); Segmented Neutrophils % 83.7 %
[2018-09-28 06:40] LABS: Hemoglobin 9.5 g/dL (11.5-15.4)
[2018-09-28 06:58] LABS: Alanine Aminotransferase 24 Units/L (7-52); Albumin 2.6 g/dL (3.5-5.7); Albumin/Globulin Ratio 1.1 (1.1-2.2); Alkaline Phosphatase 52 Units/L (34-104); Aspartate Amino Transferase 24 Units/L (13-39); BUN/Creatinine Ratio 30 (6-26); Bilirubin,Total 0.4 mg/dL (0.3-1.0); Blood Urea Nitrogen 21 mg/dL (8-23); Carbon Dioxide 22 mEq/L (23-29); Chloride 106 mEq/L (98-107); Globulin 2.4 g/dL (2.4-3.5); Glucose 123 mg/dL (70-105); Osmolality,Calculated 284 (280-300); Potassium 3.5 mEq/L (3.5-5.1); Sodium 135 mEq/L (136-145); eGFR For Non-African Americans > 60 (> 60)
[2018-09-28] MEDS ORDERED: cefTRIAXone 1,000 MG in Water for inj. (sterile) 20 ML 10 ML IVP SCH (09:00)
--- NOTE | 2018-09-28 11:22 | Internal Med Progress Note ---
Hospitalist Progress Note - Encounter Date of Encounter: 09/28/18 Time of Encounter: 11:19 - Subjective Interval History: No acute events. Patient still feels weak. Denies chest pain, sob, fevers/chills. She does admit to dysuria. - Exam Vitals: Temp Pulse Resp BP Pulse Ox 97.9 F 63 14 129/63 97 09/28/18 05:23 09/28/18 05:23 09/28/18 05:23 09/28/18 05:23 09/28/18 05:23 Exam: Gen: NAD, small laceration above right orbit, on scalp, no bleeding or drainage. AAO x3, cooperative, pleasant. HEENT: MM dry. CVS: RRR Lungs: CTAB Abd; soft, NT, ND Ext: slight TTP on right hip. Sensation normal. - Assessment and Plan (1) Fall Current Visit: Yes Status: Resolved Assessment and Plan: fall precautions up with assist PT/OT MRI hip, rule out fracture. X-ray limited use since she has significant osteopenia. (2) Sepsis secondary to UTI Current Visit: Yes Status: Acute Assessment and Plan: 4 SIRS criteria met Currently hemodynamically stable Continue Rocephin Follow-up blood cultures Follow-up urine cultures. (3) Hypertension Current Visit: Yes Status: Chronic Assessment and Plan: Continue home medications. (4) Weight loss Current Visit: Yes Status: Acute Assessment and Plan: Possibly from acute illness but this appears to be ongoing for long period of time She denies any night sweats Will need further evaluation when more stable. (5) UTI (urinary tract infection) Current Visit: Yes Status: Acute Assessment and Plan: Follow up cultures and sensitivity will continue with Rocephin 1 g IV daily (6) DVT prophylaxis Current Visit: Yes Status: Acute Assessment and Plan: SQ heparin - Time Spent with Patient Total time spent is greater than 50% in coordination of care (as documented) at patient's floor/unit and/or counseling patient: Internal Medicine: Result - Labs CBC & Chem 7: 09/28/18 05:59 09/28/18 05:59 Labs: Short CBC 09/27/18 09/28/18 Range/Units 11:21 05:59 WBC 13.0 H 11.7 H (4.3-11.1) K/mcL Hgb 11.2 L 9.5 L D (11.5-15.4) g/dL Hct 32.8 L 28.7 L (35.3-44.9) % Plt Count 171 143 (140-400) K/mcL Neutrophils # 10.7 H 9.8 H (1.6-8.9) K/mcL BMP 09/27/18 09/28/18 11:21 05:59 Sodium 133 L 135 L Potassium 3.5 3.5 Chloride 100 106 Carbon Dioxide 27 22 L BUN 19 21 Creatinine 0.71 0.71 Glucose 133 H 123 H Calcium 8.5 L 8.0 L Cardiac Enzymes 09/27/18 Range/Units 11:21 Troponin I < 0.03 (< 0.04) ng/mL Liver Function 09/27/18 09/28/18 Range/Units 11:21 05:59 Total Bilirubin 0.6 0.4 (0.3-1.0) mg/dL AST 24 24 (13-39) Units/L ALT 25 24 (7-52) Units/L Alkaline Phosphatase 50 52 (34-104) Units/L Albumin 3.2 L 2.6 L (3.5-5.7) g/dL Urine 09/27/18 Range/Units 13:00 Urine Color Yellow (Yellow) Urine Clarity Cloudy A (Clear) Urine pH 6.5 (5.0-8.0) pH Units Ur Specific Golden 1.013 (1.010-1.025) Urine Protein 100 H (Neg-Trace) mg/dL Urine Glucose (UA) Normal (Normal) mg/dL - Impressions Impressions Chest X-Ray 09/27/18 11:10 IMPRESSION: No acute process. D/ / Senthil Merida MD / Senthil Merida MD Interpreting Provider: Senthil Merida MD Head CT 09/27/18 11:10 IMPRESSION: No acute intracranial abnormality. No acute orbital bone fracture. D/ / 09/27/2018 12:22:37 Alejandro Muñoz MD / delores Interpreting Provider: Alejandro Muñoz MD Orbit CT 09/27/18 11:11 IMPRESSION: No acute intracranial abnormality. No acute orbital bone fracture. D/ / 09/27/2018 12:22:37 Alejandro Muñoz MD / delores Interpreting Provider: Alejandro Muñoz MD Pelvis X-Ray 09/27/18 11:11 IMPRESSION: No acute osseous abnormality. Given the degree of osteopenia, nondisplaced fractures may be radiographically occult. If pain or concern for fracture persists, consider MR imaging. D/ / Chari Rainey MD / Chari Rainey MD Interpreting Provider: Chari Rainey MD Consult Discharge Plan - Plan Referrals: Phuc Lemus MD [Primary Care Provider] - __ (1) Fall Qualifiers: Encounter type: initial encounter Qualified Code(s): W19.XXXA - Unspecified fall, initial encounter (3) Hypertension Qualifiers: Hypertension type: essential hypertension Qualified Code(s): I10 - Essential (primary) hypertension (5) UTI (urinary tract infection) Qualifiers: Urinary tract infection type: site unspecified Hematuria presence: without hematuria Qualified Code(s): N39.0 - Urinary tract infection, site not specified
[2018-09-28] MEDS: hydrALAZINE 25 MG TABLET PO SCH (17:30)
[2018-09-28] MEDS: traZODone 50 MG TABLET PO SCH (20:16)
[2018-09-28] MEDS ORDERED: NON-FORMULARY MEDICATION 1 EACH EACH (Carvedilol [Carvedilol] 12.5 MG) PO SCH (21:00)
[2018-09-28] MEDS ORDERED: NON-FORMULARY MEDICATION 1 EACH EACH (Atorvastatin Calcium [Lipitor] 80 MG) PO SCH (21:00)
[2018-09-29] MEDS: hydrALAZINE 25 MG TABLET PO SCH ×3 (01:24→15:30)
[2018-09-29] MEDS: *HR* Heparin 5,000 UNIT/ML VIAL SQ SCH ×2 (05:40→15:29)
[2018-09-29 07:01] LABS: Basophils % 0.1 %; Eosinophils % 0.5 %; Hematocrit 26.9 % (35.3-44.9); Immature Granulocytes % 0.4 % (0-4); Lymphocytes # 0.7 K/mcL (0.6-4.6); Lymphocytes % 8.8 %; Mean Corpuscular HGB Conc 33.5 g/dL (31.6-35.5); Mean Corpuscular Hemoglobin 31.3 pg (28.0-33.3); Mean Corpuscular Volume 93.4 fL (83.0-100.0); Mean Platelet Volume 9.4 fL (9.4-12.4); Monocytes # 0.8 K/mcL (0.0-1.3); Monocytes % 10.5 %; Neutrophils # 6.1 K/mcL (1.6-8.9); Platelet Count 158 K/mcL (140-400); Red Blood Count 2.88 M/mcL (3.82-4.97); Red Cell Distribution Width 13.5 % (11.5-14.5); Segmented Neutrophils % 79.7 %
[2018-09-29 07:18] LABS: BUN/Creatinine Ratio 30 (6-26); Blood Urea Nitrogen 17 mg/dL (8-23); Calcium 7.9 mg/dL (8.6-10.3); Carbon Dioxide 21 mEq/L (23-29); Chloride 110 mEq/L (98-107); Glucose 147 mg/dL (70-105); Osmolality,Calculated 290 (280-300); Potassium 3.7 mEq/L (3.5-5.1); Sodium 138 mEq/L (136-145); eGFR For Non-African Americans > 60 (> 60)
--- NOTE | 2018-09-29 08:24 | Internal Med Progress Note ---
Hospitalist Progress Note - Encounter Date of Encounter: 09/29/18 Time of Encounter: 08:26 - Subjective Interval History: Patient with history of hypertension, high cholesterol, patient was admitted due to recurrent fall CT of the head is unremarkable , hip MRI was unremarkable retroperitoneal ultrasound was also unremarkable patient receiving PT OT also diagnosed with UTI have received Rocephin and she is feeling physically better and can be discharged home to follow up with primary physician I will however give more days of levaquin - Exam Vitals: Temp Pulse Resp BP Pulse Ox 98.5 F 72 15 166/79 95 09/29/18 06:41 09/29/18 06:41 09/29/18 06:41 09/29/18 06:41 09/29/18 06:41 Exam: Gen: NAD, small laceration above right orbit, on scalp, no bleeding or drainage. AAO x3, cooperative, pleasant. HEENT: MM dry. CVS: RRR Lungs: CTAB Abd; soft, NT, ND Ext: slight TTP on right hip. Sensation normal. - Assessment and Plan (1) Hypertension Current Visit: Yes Status: Chronic Assessment and Plan: We will continue home medication (2) Hypothyroidism Current Visit: No Status: Chronic Assessment and Plan: Thyroid ultrasound unremarkable recommend follow-up repeat in 1 year (3) Fall Current Visit: Yes Status: Resolved (4) Frequent falls Current Visit: Yes Status: Acute Assessment and Plan: Head CT hip MRI of the test shows no fracture (5) UTI (urinary tract infection) Current Visit: Yes Status: Acute Assessment and Plan: Patient have received 3 days of Rocephin was sent home on 5 more days of Levaquin - Time Spent with Patient Total time spent is greater than 50% in coordination of care (as documented) at patient's floor/unit and/or counseling patient: Internal Medicine: Result - Labs CBC & Chem 7: 09/29/18 06:31 09/29/18 06:31 Labs: Short CBC 09/29/18 Range/Units 06:31 WBC 7.6 (4.3-11.1) K/mcL Hgb 9.0 L (11.5-15.4) g/dL Hct 26.9 L (35.3-44.9) % Plt Count 158 (140-400) K/mcL Neutrophils # 6.1 (1.6-8.9) K/mcL BMP 09/29/18 06:31 Sodium 138 Potassium 3.7 Chloride 110 H Carbon Dioxide 21 L BUN 17 Creatinine 0.57 L Glucose 147 H Calcium 7.9 L - Impressions Impressions Head CT 09/27/18 11:10 IMPRESSION: No acute intracranial abnormality. No acute orbital bone fracture. D/ / 09/27/2018 12:22:37 Alejandro Muñoz MD / delores Interpreting Provider: Alejandro Muñoz MD Orbit CT 09/27/18 11:11 IMPRESSION: No acute intracranial abnormality. No acute orbital bone fracture. D/ / 09/27/2018 12:22:37 Alejandro Muñoz MD / delores Interpreting Provider: Alejandro Muñoz MD Hip MRI 09/28/18 11:31 IMPRESSION: No evidence for occult fracture of the right hip. Chronic labral degeneration or subtle degenerative tearing of the anterior labrum. 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 Partial-thickness intrasubstance tearing of the gluteus medius and minimus tendon insertions. No drainable trochanteric or iliopsoas bursitis. D/ / Freddie Leone MD / Freddie Leone MD Interpreting Provider: Freddie Leone MD Echocardiogram 09/28/18 15:38 Impressions: LVEF 65-70%. Normal LV chamber size and systolic function. Mild concentric left ventricular hypertrophy. Mild left ventricular diastolic dysfunction. Normal right ventricular structure and function. Mildly dilated left atrium. Mild tricuspid regurgitation. Mild pulmonic regurgitation. Mild pulmonary hypertension. No evidence of PFO with agitated saline contrast. Left Ventricular Wall Motion: Rest Echo Findings All wall segments showed normal motion. Findings: Study Quality * Technically adequate exam. ECG Findings * Normal sinus rhythm. Left Ventricle * LVEF 65-70%. * Normal LV chamber size systolic function. * Mild left ventricular diastolic dysfunction. * Mild concentric left ventricular hypertrophy. Right Ventricle * Normal right ventricular structure and function. Left Atrium * Mildly dilated left atrium. Right Atrium * Normal right atrial size. Interatrial Septum * Interatrial septum not well evaluated. * No evidence of PFO by color Doppler. * No evidence of PFO with agitated saline contrast. Aortic Valve * Trileaflet aortic valve. * Mildly calcified aortic valve leaflets. * No aortic regurgitation. * No aortic stenosis. Mitral Valve * Normal mitral valve structure and function. * No mitral regurgitation. * Trace mitral regurgitation. Tricuspid Valve * Normal tricuspid valve structure. * No tricuspid stenosis. * Mild tricuspid regurgitation. * Estimated RVSP is 38 mmHg. * Estimated RA pressure is 10 mmHg. * Mild pulmonary hypertension. Pulmonic Valve * Pulmonic valve is not well visualized. * No pulmonic stenosis. * Mild pulmonic regurgitation. Aorta * Normally sized aortic root. Pericardium * The pericardium appears normal. IVC * Normal IVC dimensions and inspiratory collapse. Thyroid Ultrasound 09/28/18 16:00 IMPRESSION: Heterogeneous thyroid gland with increased vascularity. NODULE right 1: ACR TI-RADS TR3: Recommend: Follow-up ultrasound in 1 year. NODULE left 2: ACR TI-RADS TR3: Recommend: Ultrasound-guided fine needle aspiration. ACR TI-RADS recommendations: TR5 (>= 7 points): FNA if >= 1 cm; follow-up if 0.5-0.9 cm in 1, 2, 3, 4, and 5 years TR4 (4-6 points): FNA if >= 1.5 cm; follow-up if 1.0-1.4 cm in 1, 2, 3, and 5 years TR3 (3 points): FNA if >= 2.5 cm; follow-up if 1.5-2.4 cm in 1, 3, and 5 years TR2 (2 points): No FNA or follow-up TR1 (0 points): No FNA or follow-up ACR TI-RADS recommends that no more than two nodules with the highest ACR TI-RADS point total should be biopsied and no more than four nodules should be followed. D/ / 09/28/2018 18:59:42 Carl Manrique MD / owen Interpreting Provider: Carl Manrique MD Retroperitoneum Ultrasound 09/28/18 17:00 IMPRESSION: Unremarkable ultrasound of the kidneys and urinary bladder. D/ / Don Rudolph MD / Don Rudolph MD Interpreting Provider: Don Rudolph MD Consult Discharge Plan - Plan Referrals: Phuc Lemus MD [Primary Care Provider] - (1) Hypertension Qualifiers: Hypertension type: essential hypertension Qualified Code(s): I10 - Essential (primary) hypertension (2) Hypothyroidism Qualifiers: Hypothyroidism type: acquired Qualified Code(s): E03.9 - Hypothyroidism, unspecified (3) Fall Qualifiers: Encounter type: initial encounter Qualified Code(s): W19.XXXA - Unspecified fall, initial encounter (5) UTI (urinary tract infection) Qualifiers: Urinary tract infection type: site unspecified Hematuria presence: without hematuria Qualified Code(s): N39.0 - Urinary tract infection, site not specified
--- NOTE | 2018-09-29 08:30 | Discharge Summary ---
Orders not resulted at time of discharge: Pending orders 09/27/18 13:19 Culture,Urine [RM] Stat 09/27/18 16:06 Culture,Blood [BC] Stat Thyroid Antibodies Stat Date of Encounter: 09/29/18 Time of Encounter: 08:28 - Discharge Diagnosis (1) Hypertension Priority: Secondary Status: Chronic Qualifiers: Hypertension type: essential hypertension Qualified Code(s): I10 - Essential (primary) hypertension (2) Hypothyroidism Priority: Secondary Status: Chronic Qualifiers: Hypothyroidism type: acquired Qualified Code(s): E03.9 - Hypothyroidism, unspecified (3) Fall Priority: Secondary Status: Resolved Qualifiers: Encounter type: initial encounter Qualified Code(s): W19.XXXA - Unspecified fall, initial encounter (4) Frequent falls Priority: Primary Status: Acute (5) UTI (urinary tract infection) Priority: Secondary Status: Acute Qualifiers: Urinary tract infection type: site unspecified Hematuria presence: without hematuria Qualified Code(s): N39.0 - Urinary tract infection, site not specified Hospital course: Ms. Cunningham is a 78 year old female - Time Spent with Patient Total time spent providing and/or coordinating discharge services: Greater than 30 minutes - Discharge Medications Home Medications: RX: Aspirin [Lo-Dose Aspirin EC] 81 mg PO DAILY 03/31/17 [History] RX: Atorvastatin Calcium [Lipitor] 80 mg PO HS 03/31/17 [History] RX: Calcium Carbonate [Calcium] 500 mg PO DAILY 03/31/17 [History] RX: Donepezil [Aricept] 10 mg PO HS 03/31/17 [History] RX: Levothyroxine [Synthroid] 50 mcg PO 0630 03/31/17 [History] RX: Meclizine HCl [Verticalm] 25 mg PO DAILY PRN 03/31/17 [History] RX: Mv-Mn/FA/Vit K/Lycop/Lut/Coq10 [Daily Multivitamin Capsule] 1 each PO DAILY 03/31/17 [History] RX: Omeprazole [PriLOSEC] 40 mg PO DAILY 03/31/17 [History] RX: traZODone [TraZODone] 50 mg PO HS 03/31/17 [History] RX: hydrALAZINE [HydrALAZINE] 50 mg PO Q8HR #180 tablet 04/02/17 [Rx] RX: Oxybutynin [Ditropan] 5 mg PO BID 04/04/17 [History] RX: Potassium Chloride [Klor-Con 10] 10 meq PO BID 04/04/17 [History] RX: Sodium Chloride [Sodium Chloride Tab] 1 gm PO TID 12/12/17 [History] RX: Carvedilol 12.5 mg PO BID 09/27/18 [History] RX: Chlorthalidone 25 mg PO DAILY 09/28/18 [History] RX: Cholecalciferol (Vitamin D3) [Vitamin D3] 50,000 unit SQ QWEEK 09/28/18 [History] RX: Escitalopram [Lexapro] 20 mg PO DAILY 09/28/18 [History] RX: Meloxicam [Mobic] 15 mg PO DAILY 09/28/18 [History] RX: levoFLOXacin [Levaquin] 500 mg PO DAILY tablet 09/29/18 [Rx] Allergies/Adverse Reactions: Allergy/AdvReac Type Severity Reaction Status Date / Time Penicillins Allergy Rash Verified 09/27/18 12:17 codeine AdvReac Vomiting Verified 09/27/18 12:17 Date of admission: 09/27/18 14:48 Primary care physician: Phuc Lemus MD Consults: 09/27/18 18:06 Consult to Physical Therapy [CONS] Routine Comment: Evaluate, develop and implement POC Reason for Consult: FREQUENT FALL Does patient have active BEDREST order?: No Is patient medically & hemodynamically stable?: Yes Patient assessed for mobility or mobilized this visit?: No OT [Consult to Occupational Therapy] [CONS] Routine Comment: Evaluate, develop and implement POC Reason for Consult: FREQUENT FALL Does patient have active BEDREST order?: No Is patient medically & hemodynamically stable?: Yes Patient assessed for mobility or mobilized this visit?: No 09/27/18 18:35 Consult to Nutrition [CONS] Routine Comment: Consulting Provider: NUTRITION Reason for Dietary Consult: Diet Education Discharging clinician: Declan Churchill Anticipated date of discharge: 09/29/18 - Constitutional Vitals: Temp Pulse Resp BP Pulse Ox 98.5 F 72 15 166/79 95 09/29/18 06:41 09/29/18 06:41 09/29/18 06:41 09/29/18 06:41 09/29/18 06:41 General appearance: Present: A&O X 3, pleasant, no acute distress Exam: Gen: NAD, small laceration above right orbit, on scalp, no bleeding or drainage. AAO x3, cooperative, pleasant. HEENT: MM dry. CVS: RRR Lungs: CTAB Abd; soft, NT, ND Ext: slight TTP on right hip. Sensation normal. - Patient Status Disposition: Transfer Hospital Swing Bed Functional capacity at discharge: independent ambulation Overall status at discharge: patient is progressing back to baseline - Discharge Instructions Follow Up With: Phuc Lemus MD [Primary Care Provider] - - Diet and Activity Activity: other Diet: advance to your usual diet
[2018-09-29] MEDS: 0.9 % Sodium Chloride 1,000 ML IVC SCH ×2 (08:58)
[2018-09-29] MEDS ORDERED: BuPROPion XL (24 HR) 150 MG TABLET PO SCH (09:00)
[2018-09-29] MEDS ORDERED: NON-FORMULARY MEDICATION 1 EACH EACH (Potassium Chloride [Klor-Con 10] 10 MEQ) PO SCH (09:00)
[2018-09-29] MEDS ORDERED: Aspirin Enteric Coated 81 MG Tablet PO SCH (09:00)
[2018-09-29] MEDS ORDERED: levoFLOXacin 500 MG TABLET PO SCH (09:00)
[2018-09-29] MEDS ORDERED: Multivit/Ca/Min/Fe/FA 1 TAB TABLET PO SCH (09:00)
[2018-09-29] MEDS ORDERED: 0.9 % Sodium Chloride 1,000 ML IVC SCH (10:41)
[2018-09-29 14:45] VITALS: BP 156/70
--- NOTE | 2018-09-29 15:31 | Physician Discharge Referral ---
ExtendedCare Referral Info Transfer To: swing Provider in Charge after Transfer: PCP Institutional Level of Care: Intermediate - Diagnosis (1) Hypertension Status: Chronic (2) Hypothyroidism Status: Chronic (3) Fall Status: Resolved (4) Frequent falls Status: Acute (5) UTI (urinary tract infection) Status: Acute - Transfer Medications Home Medications: Aspirin [Lo-Dose Aspirin EC] 81 mg PO DAILY 03/31/17 [History] Atorvastatin Calcium [Lipitor] 80 mg PO HS 03/31/17 [History] Calcium Carbonate [Calcium] 500 mg PO DAILY 03/31/17 [History] Donepezil [Aricept] 10 mg PO HS 03/31/17 [History] Levothyroxine [Synthroid] 50 mcg PO 0630 03/31/17 [History] Meclizine HCl [Verticalm] 25 mg PO DAILY PRN 03/31/17 [History] Mv-Mn/FA/Vit K/Lycop/Lut/Coq10 [Daily Multivitamin Capsule] 1 each PO DAILY 03/31/17 [History] Omeprazole [PriLOSEC] 40 mg PO DAILY 03/31/17 [History] traZODone [TraZODone] 50 mg PO HS 03/31/17 [History] hydrALAZINE [HydrALAZINE] 50 mg PO Q8HR #180 tablet 04/02/17 [Rx] Oxybutynin [Ditropan] 5 mg PO BID 04/04/17 [History] Potassium Chloride [Klor-Con 10] 10 meq PO BID 04/04/17 [History] Sodium Chloride [Sodium Chloride Tab] 1 gm PO TID 12/12/17 [History] Carvedilol 12.5 mg PO BID 09/27/18 [History] Chlorthalidone 25 mg PO DAILY 09/28/18 [History] Cholecalciferol (Vitamin D3) [Vitamin D3] 50,000 unit SQ QWEEK 09/28/18 [History] Escitalopram [Lexapro] 20 mg PO DAILY 09/28/18 [History] Meloxicam [Mobic] 15 mg PO DAILY 09/28/18 [History] levoFLOXacin [Levaquin] 500 mg PO DAILY tablet 09/29/18 [Rx] Allergies/Adverse Reactions: Allergy/AdvReac Type Severity Reaction Status Date / Time Penicillins Allergy Rash Verified 09/27/18 12:17 codeine AdvReac Vomiting Verified 09/27/18 12:17 - Respiratory Orders Smoking Cessation: Smoking cessation has been advised. For more information, call the [place] Tobacco Quit Line at 7-448-DZWRNOW. CERTIFICATION: I certify that the transfer of the above named patient to an Extended Care Facility is necessary for the continuing treatment of the diagnosis listed. The above information is true and accurate reflection of patient's current condition. Confidential - Redisclosure prohibited without a patient's written consent.
--- NOTE | 2018-09-29 19:55 | Electrocardiograph Report ---
[place] [id number] Test Date: 2018-09-27 Pat Name: [facility] Department: [id number] Room: 3A31 Gender: F [employer] Operator: : 1940 Requested By: Anmol Kowalski Order Number: [id number] Reading MD: Alcira Webb Measurements Intervals [place] Rate: 84 P: 79 WV: 155 QRS: 69 QRSD: 96 T: 73 QT: 376 QTc: 445 Interpretive Statements Sinus rhythm Electronically Signed On 09-29-2018 19:54:00 EST by Alcira Webb
[2018-09-30 15:27] LABS: Thyroglobulin Antibody <0.9 IU/mL (0.0-4.0)
[2018-10-07] MEDS ORDERED: NON-FORMULARY MEDICATION 1 EACH EACH (Cholecalciferol (Vitamin D3) [Vitamin D3] 50,000 UNI SQ SCH (09:00)
== END 2018-09-29 16:19 | disposition other institution (70) ==
LOC: 3ANU 10:58 → EMEROOARM 10:58 → SUATTDRO 14:48 → 3ANU 17:00
PROVIDERS: ADMIT Internal Medicine; ATTEND Student in an Organized Health Care Education/Training Program

== ENCOUNTER 2020-01-14 11:07 | Inpatient (IN) ==
[2020-01-14 11:43] LABS: Basophils # 0.1 K/mcL (0.0-0.2); Basophils % 0.5 %; Eosinophils # 0.3 K/mcL (0.0-0.6); Eosinophils % 3.4 %; Hematocrit 34.5 % (35.3-44.9); Hemoglobin 11.4 g/dL (11.5-15.4); Immature Granulocytes % 0.5 % (0-4); Lymphocytes % 9.6 %; Mean Corpuscular Hemoglobin 30.2 pg (28.0-33.3); Mean Corpuscular Volume 91.3 fL (83.0-100.0); Mean Platelet Volume 8.5 fL (9.4-12.4); Monocytes # 1.2 K/mcL (0.0-1.3); Monocytes % 12.2 %; Neutrophils # 7.4 K/mcL (1.6-8.9); Platelet Count 266 K/mcL (140-400); Red Blood Count 3.78 M/mcL (3.82-4.97); Segmented Neutrophils % 73.8 %
[2020-01-14 12:05] LABS: Alanine Aminotransferase 18 Units/L (7-52); Albumin 3.3 g/dL (3.5-5.7); Albumin/Globulin Ratio 1.3 (1.1-2.2); Alkaline Phosphatase 107 Units/L (34-104); Aspartate Amino Transferase 20 Units/L (13-39); BUN/Creatinine Ratio 25 (6-26); Bilirubin,Direct 0.1 mg/dL (0.0-0.2); Bilirubin,Indirect 0.3 mg/dL (0.0-1.0); Bilirubin,Total 0.4 mg/dL (0.3-1.0); Blood Urea Nitrogen 19 mg/dL (8-23); Calcium 8.2 mg/dL (8.6-10.3); Carbon Dioxide 24 mEq/L (23-29); Chloride 102 mEq/L (98-107); Ethanol < 10 mg/dL (Less than 10); Globulin 2.5 g/dL (2.4-3.5); Glucose 122 mg/dL (70-105); Osmolality,Calculated 274 (280-300); Potassium 4.5 mEq/L (3.5-5.1); Sodium 130 mEq/L (136-145); Total Protein 5.8 g/dL (6.4-8.9); Troponin I < 0.03 ng/mL (< 0.04); eGFR For African Americans > 60 (> 60); eGFR For Non-African Americans > 60 (> 60)
[2020-01-14 12:06] LABS: Activated Partial Thrombo Time 29.3 Seconds (26.0-36.0); Prothrombin Time 11.7 Seconds (9.4-12.1)
[2020-01-14 12:55] LABS: Bilirubin,Urine Negative (Negative); Blood,Urine Negative (Negative); Clarity,Urine Clear (Clear); Color,Urine Yellow (Yellow); Glucose,Urine (UA) Normal (Normal); Ketones,Urine Negative (Negative); Leukocyte Esterase,Urine Negative (Negative); Nitrite,Urine Negative (Negative); PH,Urine 7.5 pH Units (5.0-8.0); Protein,Urine Negative (Neg-Trace); Specific Gravity,Urine 1.017 (1.010-1.025); Urobilinogen,Urine Normal (Normal)
[2020-01-14 13:02] LABS: Amphetamine Screen,Urine Negative ng/mL (Cutoff=1000); Barbiturate Screen,Urine Negative ng/mL (Cutoff=200); Benzodiazepines Screen,Urine Negative ng/mL (Cutoff=200); Cannabinoid Screen,Urine Negative ng/mL (Cutoff = 50); Cocaine Screen,Urine Negative ng/mL (Cutoff= 300); Opiate Screen,Urine Negative ng/mL (Cutoff=300); Phencyclidine Screen,Urine Negative ng/mL (Cutoff=25)
[2020-01-14] MEDS ORDERED: Naloxone 0.4 MG/ML INJ IVP PRN (13:58)
[2020-01-14] MEDS ORDERED: Isovue-370 500 ML BOTTLE IVP ONE (15:10)
[2020-01-14] MEDS: carvediloL 6.25 MG TABLET PO SCH (16:51)
[2020-01-14] MEDS: hydrALAZINE 25 MG TABLET PO SCH (16:52)
[2020-01-14] MEDS: BuPROPion SR (12 HR) 150 MG TABLET PO SCH (20:00)
[2020-01-15] MEDS: hydrALAZINE 25 MG TABLET PO SCH ×3 (00:05→17:21)
[2020-01-15 05:11] LABS: INR 1.1; Prothrombin Time 12.2 Seconds (9.4-12.1)
[2020-01-15 05:13] LABS: Basophils % 0.4 %; Eosinophils # 0.3 K/mcL (0.0-0.6); Eosinophils % 3.4 %; Hematocrit 36.8 % (35.3-44.9); Hemoglobin 12.2 g/dL (11.5-15.4); Immature Granulocytes % 0.5 % (0-4); Lymphocytes # 1.3 K/mcL (0.6-4.6); Lymphocytes % 13.9 %; Mean Corpuscular HGB Conc 33.2 g/dL (31.6-35.5); Mean Corpuscular Hemoglobin 30.3 pg (28.0-33.3); Mean Corpuscular Volume 91.3 fL (83.0-100.0); Mean Platelet Volume 8.8 fL (9.4-12.4); Monocytes # 1.3 K/mcL (0.0-1.3); Neutrophils # 6.5 K/mcL (1.6-8.9); Platelet Count 301 K/mcL (140-400); Red Blood Count 4.03 M/mcL (3.82-4.97); Red Cell Distribution Width 15.1 % (11.5-14.5); Segmented Neutrophils % 67.8 %; White Blood Count 9.6 K/mcL (4.3-11.1)
[2020-01-15 05:27] LABS: Alanine Aminotransferase 18 Units/L (7-52); Albumin 3.5 g/dL (3.5-5.7); Albumin/Globulin Ratio 1.3 (1.1-2.2); Alkaline Phosphatase 112 Units/L (34-104); Aspartate Amino Transferase 20 Units/L (13-39); BUN/Creatinine Ratio 24 (6-26); Bilirubin,Total 0.5 mg/dL (0.3-1.0); Blood Urea Nitrogen 15 mg/dL (8-23); Calcium 8.5 mg/dL (8.6-10.3); Carbon Dioxide 23 mEq/L (23-29); Chloride 100 mEq/L (98-107); Chol/HDL Ratio 2.8 (0-4.9); Cholesterol 167 mg/dL (< 200); Globulin 2.6 g/dL (2.4-3.5); Glucose 94 mg/dL (70-105); HDL Cholesterol 60 mg/dL (40-59); LDL Cholesterol,Calculated 90 mg/dL (0-99); Osmolality,Calculated 269 (280-300); Potassium 4.3 mEq/L (3.5-5.1); Sodium 129 mEq/L (136-145); Total Protein 6.1 g/dL (6.4-8.9); Triglycerides 85 mg/dL (< 150); eGFR For African Americans > 60 (> 60); eGFR For Non-African Americans > 60 (> 60)
[2020-01-15 07:41] LABS: Estimated Average Glucose 134 mg/dl
[2020-01-15] MEDS: lisinopriL 10 MG TABLET PO SCH (09:43)
[2020-01-15] MEDS: Magnesium Oxide 400 MG TABLET PO SCH (09:43)
[2020-01-15] MEDS: carvediloL 6.25 MG TABLET PO SCH ×2 (09:43→17:21)
[2020-01-15] MEDS: Aspirin Enteric Coated 81 MG Tablet PO SCH (09:43)
[2020-01-15] MEDS: BuPROPion SR (12 HR) 150 MG TABLET PO SCH ×2 (09:43→21:13)
[2020-01-15] MEDS ORDERED: Diclofenac Sodium (DR) 50 MG TABLET.DR PO PRN (14:32)
[2020-01-15] MEDS ORDERED: 0.9 % Sodium Chloride 500 ML IVC SCH (18:15)
[2020-01-15] MEDS: Famotidine 20 MG TABLET PO SCH (21:13)
[2020-01-15] MEDS ORDERED: Melatonin 3 MG TABLET PO STA (21:18)
[2020-01-16] MEDS: hydrALAZINE 25 MG TABLET PO SCH ×3 (01:34→17:15)
[2020-01-16 06:44] LABS: Hematocrit 36.6 % (35.3-44.9); Hemoglobin 12.1 g/dL (11.5-15.4); Mean Corpuscular HGB Conc 33.1 g/dL (31.6-35.5); Mean Corpuscular Hemoglobin 30.2 pg (28.0-33.3); Mean Corpuscular Volume 91.3 fL (83.0-100.0); Mean Platelet Volume 8.6 fL (9.4-12.4); Platelet Count 305 K/mcL (140-400); Red Blood Count 4.01 M/mcL (3.82-4.97); Red Cell Distribution Width 14.9 % (11.5-14.5); White Blood Count 10.1 K/mcL (4.3-11.1)
[2020-01-16 07:05] LABS: BUN/Creatinine Ratio 27 (6-26); Blood Urea Nitrogen 18 mg/dL (8-23); Calcium 8.3 mg/dL (8.6-10.3); Carbon Dioxide 24 mEq/L (23-29); Chloride 100 mEq/L (98-107); Glucose 115 mg/dL (70-105); Osmolality,Calculated 273 (280-300); Potassium 4.1 mEq/L (3.5-5.1); Sodium 130 mEq/L (136-145); eGFR For African Americans > 60 (> 60); eGFR For Non-African Americans > 60 (> 60)
[2020-01-16] MEDS: Aspirin Enteric Coated 81 MG Tablet PO SCH (08:23)
[2020-01-16] MEDS: Famotidine 20 MG TABLET PO SCH ×2 (08:23→20:54)
[2020-01-16] MEDS: lisinopriL 10 MG TABLET PO SCH (08:24)
[2020-01-16] MEDS: Magnesium Oxide 400 MG TABLET PO SCH (08:24)
[2020-01-16] MEDS: BuPROPion SR (12 HR) 150 MG TABLET PO SCH ×2 (08:24→20:55)
[2020-01-16] MEDS: carvediloL 6.25 MG TABLET PO SCH ×2 (08:24→17:15)
[2020-01-16] MEDS: polyethylene glycoL 3350 17 GM POWD.PACK PO PRN (18:50)
[2020-01-16] MEDS ORDERED: Melatonin 3 MG TABLET PO STA (21:46)
[2020-01-17 01:11] LABS: Hematocrit 34.9 % (35.3-44.9); Hemoglobin 11.2 g/dL (11.5-15.4); Mean Corpuscular HGB Conc 32.1 g/dL (31.6-35.5); Mean Corpuscular Hemoglobin 29.6 pg (28.0-33.3); Mean Corpuscular Volume 92.3 fL (83.0-100.0); Mean Platelet Volume 8.8 fL (9.4-12.4); Platelet Count 295 K/mcL (140-400); Red Blood Count 3.78 M/mcL (3.82-4.97); Red Cell Distribution Width 14.8 % (11.5-14.5); White Blood Count 7.7 K/mcL (4.3-11.1)
[2020-01-17 01:26] LABS: BUN/Creatinine Ratio 25 (6-26); Blood Urea Nitrogen 19 mg/dL (8-23); Calcium 8.3 mg/dL (8.6-10.3); Carbon Dioxide 23 mEq/L (23-29); Chloride 101 mEq/L (98-107); Glucose 109 mg/dL (70-105); Osmolality,Calculated 267 (280-300); Potassium 4.3 mEq/L (3.5-5.1); Sodium 127 mEq/L (136-145); eGFR For African Americans > 60 (> 60); eGFR For Non-African Americans > 60 (> 60)
[2020-01-17] MEDS: hydrALAZINE 25 MG TABLET PO SCH ×4 (05:07→23:12)
[2020-01-17] MEDS: BuPROPion SR (12 HR) 150 MG TABLET PO SCH ×2 (08:11→21:16)
[2020-01-17] MEDS: carvediloL 6.25 MG TABLET PO SCH ×2 (08:11→16:48)
[2020-01-17] MEDS: lisinopriL 10 MG TABLET PO SCH (08:11)
[2020-01-17] MEDS: Aspirin Enteric Coated 81 MG Tablet PO SCH (08:11)
[2020-01-17] MEDS: Magnesium Oxide 400 MG TABLET PO SCH (08:12)
[2020-01-17] MEDS: Famotidine 20 MG TABLET PO SCH ×2 (08:12→21:16)
[2020-01-17] MEDS: polyethylene glycoL 3350 17 GM POWD.PACK PO PRN (14:11)
[2020-01-18 06:01] LABS: Hematocrit 36.9 % (35.3-44.9); Hemoglobin 12.5 g/dL (11.5-15.4); Mean Corpuscular HGB Conc 33.9 g/dL (31.6-35.5); Mean Corpuscular Hemoglobin 30.3 pg (28.0-33.3); Mean Corpuscular Volume 89.6 fL (83.0-100.0); Mean Platelet Volume 8.6 fL (9.4-12.4); Platelet Count 337 K/mcL (140-400); Red Blood Count 4.12 M/mcL (3.82-4.97); Red Cell Distribution Width 14.6 % (11.5-14.5)
[2020-01-18 06:04] LABS: White Blood Count 12.3 K/mcL (4.3-11.1)
[2020-01-18 06:22] LABS: BUN/Creatinine Ratio 28 (6-26); Blood Urea Nitrogen 17 mg/dL (8-23); Calcium 8.7 mg/dL (8.6-10.3); Carbon Dioxide 24 mEq/L (23-29); Chloride 95 mEq/L (98-107); Glucose 112 mg/dL (70-105); Osmolality,Calculated 262 (280-300); Potassium 4.4 mEq/L (3.5-5.1); Sodium 125 mEq/L (136-145); eGFR For African Americans > 60 (> 60); eGFR For Non-African Americans > 60 (> 60)
[2020-01-18] MEDS: Famotidine 20 MG TABLET PO SCH ×2 (09:58→21:45)
[2020-01-18] MEDS: Aspirin Enteric Coated 81 MG Tablet PO SCH (09:58)
[2020-01-18] MEDS: carvediloL 6.25 MG TABLET PO SCH ×2 (09:58→16:46)
[2020-01-18] MEDS: hydrALAZINE 25 MG TABLET PO SCH ×2 (09:58→16:46)
[2020-01-18] MEDS: BuPROPion SR (12 HR) 150 MG TABLET PO SCH ×2 (09:59→21:48)
[2020-01-18] MEDS: lisinopriL 10 MG TABLET PO SCH (09:59)
[2020-01-18] MEDS: Magnesium Oxide 400 MG TABLET PO SCH (09:59)
[2020-01-18] MEDS ORDERED: 0.9 % Sodium Chloride 1,000 ML IVC SCH (15:30)
[2020-01-18] MEDS ORDERED: Melatonin 3 MG TABLET PO SCH (21:00)
[2020-01-18 21:23] LABS: Bilirubin,Urine Negative (Negative); Blood,Urine Negative (Negative); Clarity,Urine Cloudy (Clear); Color,Urine Yellow (Yellow); Glucose,Urine (UA) Normal (Normal); Ketones,Urine Trace mg/dL (Negative); Leukocyte Esterase,Urine Negative (Negative); Nitrite,Urine Negative (Negative); Protein,Urine Trace mg/dL (Neg-Trace); Specific Gravity,Urine 1.021 (1.010-1.025); Urobilinogen,Urine Normal (Normal)
[2020-01-18 21:25] LABS: Bacteria,Urine Many per hpf (None-Few); Hyaline Casts,Urine None Seen per lpf (None-Few); RBC,Urine 0-3 per hpf (0-3); Squamous Epithelial Cell,Urine None Seen per lpf (None-Few); WBC,Urine 0-3 per hpf (0-3)
[2020-01-19] MEDS: hydrALAZINE 25 MG TABLET PO SCH ×3 (00:24→17:08)
[2020-01-19 02:49] LABS: Basophils % 0.2 %; Eosinophils # 0.1 K/mcL (0.0-0.6); Eosinophils % 0.7 %; Hematocrit 35.3 % (35.3-44.9); Hemoglobin 11.8 g/dL (11.5-15.4); Immature Granulocytes % 0.7 % (0-4); Lymphocytes # 1.2 K/mcL (0.6-4.6); Lymphocytes % 8.1 %; Mean Corpuscular HGB Conc 33.4 g/dL (31.6-35.5); Mean Corpuscular Volume 89.8 fL (83.0-100.0); Mean Platelet Volume 8.4 fL (9.4-12.4); Monocytes # 1.8 K/mcL (0.0-1.3); Monocytes % 11.6 %; Neutrophils # 11.9 K/mcL (1.6-8.9); Platelet Count 310 K/mcL (140-400); Red Blood Count 3.93 M/mcL (3.82-4.97); Red Cell Distribution Width 14.7 % (11.5-14.5); Segmented Neutrophils % 78.7 %; White Blood Count 15.1 K/mcL (4.3-11.1)
[2020-01-19 03:14] LABS: BUN/Creatinine Ratio 33 (6-26); Blood Urea Nitrogen 19 mg/dL (8-23); Calcium 8.2 mg/dL (8.6-10.3); Carbon Dioxide 21 mEq/L (23-29); Chloride 97 mEq/L (98-107); Glucose 104 mg/dL (70-105); Osmolality,Calculated 263 (280-300); Sodium 125 mEq/L (136-145); eGFR For African Americans > 60 (> 60); eGFR For Non-African Americans > 60 (> 60)
[2020-01-19] MEDS: 0.9 % Sodium Chloride 1,000 ML IVC SCH ×2 (09:50→22:15)
[2020-01-19] MEDS: BuPROPion SR (12 HR) 150 MG TABLET PO SCH ×2 (09:53→20:13)
[2020-01-19] MEDS: Famotidine 20 MG TABLET PO SCH ×2 (09:53→20:13)
[2020-01-19] MEDS: Aspirin Enteric Coated 81 MG Tablet PO SCH (09:53)
[2020-01-19] MEDS: carvediloL 6.25 MG TABLET PO SCH ×2 (09:53→17:08)
[2020-01-19] MEDS: Magnesium Oxide 400 MG TABLET PO SCH (09:54)
[2020-01-19] MEDS: lisinopriL 10 MG TABLET PO SCH (09:54)
[2020-01-19] MEDS: *HR* Heparin 5,000 UNIT/ML VIAL SQ SCH (17:08)
[2020-01-19] MEDS ORDERED: Melatonin 3 MG TABLET PO ONE (20:34)
[2020-01-20] MEDS: hydrALAZINE 25 MG TABLET PO SCH ×4 (00:23→23:46)
[2020-01-20 02:46] LABS: Basophils % 0.4 %; Eosinophils # 0.2 K/mcL (0.0-0.6); Eosinophils % 2.1 %; Hematocrit 33.6 % (35.3-44.9); Hemoglobin 11.3 g/dL (11.5-15.4); Immature Granulocytes % 0.8 % (0-4); Lymphocytes # 1.4 K/mcL (0.6-4.6); Mean Corpuscular HGB Conc 33.6 g/dL (31.6-35.5); Mean Corpuscular Hemoglobin 30.1 pg (28.0-33.3); Mean Corpuscular Volume 89.6 fL (83.0-100.0); Mean Platelet Volume 8.6 fL (9.4-12.4); Monocytes # 1.3 K/mcL (0.0-1.3); Monocytes % 11.8 %; Neutrophils # 8.2 K/mcL (1.6-8.9); Platelet Count 328 K/mcL (140-400); Red Blood Count 3.75 M/mcL (3.82-4.97); Red Cell Distribution Width 14.7 % (11.5-14.5); Segmented Neutrophils % 72.9 %; White Blood Count 11.2 K/mcL (4.3-11.1)
[2020-01-20 03:00] LABS: BUN/Creatinine Ratio 20 (6-26); Blood Urea Nitrogen 11 mg/dL (8-23); Calcium 8.2 mg/dL (8.6-10.3); Carbon Dioxide 20 mEq/L (23-29); Chloride 98 mEq/L (98-107); Glucose 86 mg/dL (70-105); Osmolality,Calculated 259 (280-300); Potassium 3.9 mEq/L (3.5-5.1); Sodium 125 mEq/L (136-145); eGFR For African Americans > 60 (> 60); eGFR For Non-African Americans > 60 (> 60)
[2020-01-20] MEDS: *HR* Heparin 5,000 UNIT/ML VIAL SQ SCH ×2 (05:14→17:01)
[2020-01-20] MEDS: Famotidine 20 MG TABLET PO SCH ×2 (07:40→20:03)
[2020-01-20] MEDS: lisinopriL 10 MG TABLET PO SCH (07:40)
[2020-01-20] MEDS: Magnesium Oxide 400 MG TABLET PO SCH (07:41)
[2020-01-20] MEDS: Aspirin Enteric Coated 81 MG Tablet PO SCH (07:41)
[2020-01-20] MEDS: BuPROPion SR (12 HR) 150 MG TABLET PO SCH ×2 (07:42→20:03)
[2020-01-20] MEDS: carvediloL 6.25 MG TABLET PO SCH ×2 (07:42→17:00)
[2020-01-20] MEDS: Sodium Bicarbonate 100 MEQ in 0.45 % Sodium Chloride 1,000 ML IVC SCH ×2 (09:52→20:03)
[2020-01-20] MEDS ORDERED: Melatonin 3 MG TABLET PO PRN (17:11)
[2020-01-20] MEDS ORDERED: Melatonin 3 MG TABLET PO ONE (20:59)
[2020-01-21 01:46] LABS: Magnesium 1.6 mg/dL (1.6-2.6); Phosphorous 2.6 mg/dL (2.7-4.5)
[2020-01-21 01:51] LABS: BUN/Creatinine Ratio 27 (6-26); Blood Urea Nitrogen 13 mg/dL (8-23); Carbon Dioxide 26 mEq/L (23-29); Chloride 97 mEq/L (98-107); Glucose 91 mg/dL (70-105); Osmolality,Calculated 266 (280-300); Potassium 3.7 mEq/L (3.5-5.1); Sodium 128 mEq/L (136-145); eGFR For African Americans > 60 (> 60); eGFR For Non-African Americans > 60 (> 60)
[2020-01-21] MEDS: *HR* Heparin 5,000 UNIT/ML VIAL SQ SCH (05:21)
[2020-01-21] MEDS: lisinopriL 10 MG TABLET PO SCH (08:15)
[2020-01-21] MEDS: Magnesium Oxide 400 MG TABLET PO SCH (08:15)
[2020-01-21] MEDS: carvediloL 6.25 MG TABLET PO SCH (08:16)
[2020-01-21] MEDS: Famotidine 20 MG TABLET PO SCH (08:16)
[2020-01-21] MEDS: BuPROPion SR (12 HR) 150 MG TABLET PO SCH (08:16)
[2020-01-21] MEDS: Aspirin Enteric Coated 81 MG Tablet PO SCH (08:16)
[2020-01-21] MEDS: hydrALAZINE 25 MG TABLET PO SCH (08:16)
[2020-01-21 11:10] VITALS: BP 131/77
== END 2020-01-21 15:30 | DRG 65 ==
LOC: 3BNU 11:07 → EMEROOARM 11:07 → 3BNU 13:51 → SUATTDRO 01-15 15:08 → 2NENU 01-18 15:01
PROVIDERS: ADMIT Internal Medicine; ATTEND Internal Medicine

== ENCOUNTER 2020-05-14 13:38 | Observation (INO) ==
[2020-05-14 14:10] LABS: INR 1.1; Prothrombin Time 12.2 Seconds (9.4-12.1)
[2020-05-14 14:12] LABS: Activated Partial Thrombo Time 26.9 Seconds (26.0-36.0)
[2020-05-14 14:16] LABS: Basophils % 0.3 %; Eosinophils # 0.1 K/mcL (0.0-0.6); Hematocrit 35.8 % (35.3-44.9); Hemoglobin 12.1 g/dL (11.5-15.4); Immature Granulocytes % 1.9 % (0-4); Lymphocytes # 0.8 K/mcL (0.6-4.6); Lymphocytes % 8.7 %; Mean Corpuscular HGB Conc 33.8 g/dL (31.6-35.5); Mean Corpuscular Hemoglobin 30.3 pg (28.0-33.3); Mean Corpuscular Volume 89.7 fL (83.0-100.0); Mean Platelet Volume 9.1 fL (9.4-12.4); Monocytes # 0.8 K/mcL (0.0-1.3); Monocytes % 8.2 %; Neutrophils # 7.7 K/mcL (1.6-8.9); Platelet Count 279 K/mcL (140-400); Red Blood Count 3.99 M/mcL (3.82-4.97); Segmented Neutrophils % 79.9 %; White Blood Count 9.6 K/mcL (4.3-11.1)
[2020-05-14 14:24] LABS: BUN/Creatinine Ratio 21 (6-26); Blood Urea Nitrogen 15 mg/dL (8-23); Carbon Dioxide 21 mEq/L (23-29); Chloride 101 mEq/L (98-107); Creatine Kinase 93 Units/L (30-223); Glucose 154 mg/dL (70-105); Osmolality,Calculated 274 (280-300); Potassium 3.9 mEq/L (3.5-5.1); Sodium 130 mEq/L (136-145); Troponin I < 0.03 ng/mL (< 0.04); eGFR For African Americans > 60 (> 60); eGFR For Non-African Americans > 60 (> 60)
[2020-05-14 16:18] LABS: Bacteria,Urine Few per hpf (None-Few); Bilirubin,Urine Negative (Negative); Blood,Urine Negative (Negative); Clarity,Urine Turbid (Clear); Color,Urine Light-Yellow (Yellow); Glucose,Urine (UA) Normal (Normal); Hyaline Casts,Urine Few per lpf (None Seen); Ketones,Urine Negative (Negative); Leukocyte Esterase,Urine Moderate (Negative); Mucus,Urine Few per lpf (None-Few); Nitrite,Urine Negative (Negative); PH,Urine 7.5 pH Units (5.0-8.0); Protein,Urine Trace mg/dL (Neg-Trace); Specific Gravity,Urine 1.015 (1.010-1.025); Squamous Epithelial Cell,Urine Few per hpf (None-Few); Urobilinogen,Urine Normal (Normal); WBC,Urine 30-50 per hpf (0-3)
[2020-05-14] MEDS ORDERED: 0.9 % Sodium Chloride 500 ML IVC ONE (16:46)
[2020-05-14] MEDS ORDERED: Naloxone 0.4 MG/ML INJ IVP PRN (18:54)
[2020-05-14] MEDS ORDERED: Ondansetron 4 MG/2 ML VIAL IVP PRN (18:54)
[2020-05-14] MEDS ORDERED: Acetaminophen 325 MG TABLET PO PRN (18:54)
[2020-05-14] MEDS ORDERED: Ringers Solution, Lactated 500 ML IVC ONE (19:04)
[2020-05-14] MEDS ORDERED: Melatonin 3 MG TABLET PO PRN (19:05)
[2020-05-14] MEDS ORDERED: polyethylene glycoL 3350 17 GM POWD.PACK PO PRN (19:05)
[2020-05-14] MEDS: Famotidine 20 MG TABLET PO SCH (20:39)
[2020-05-14] MEDS: BuPROPion SR (12 HR) 150 MG TABLET PO SCH (20:39)
[2020-05-14] MEDS: Ringers Solution, Lactated 1,000 ML IVC SCH (20:39)
[2020-05-14] MEDS: carvediloL 25 MG TABLET PO SCH (20:40)
[2020-05-14] MEDS: hydrALAZINE 25 MG TABLET PO SCH (23:47)
[2020-05-15 03:34] LABS: Basophils % 0.2 %; Eosinophils # 0.2 K/mcL (0.0-0.6); Eosinophils % 1.3 %; Hematocrit 34.8 % (35.3-44.9); Hemoglobin 11.7 g/dL (11.5-15.4); Immature Granulocytes % 0.4 % (0-4); Lymphocytes # 1.3 K/mcL (0.6-4.6); Lymphocytes % 9.9 %; Mean Corpuscular HGB Conc 33.6 g/dL (31.6-35.5); Mean Corpuscular Hemoglobin 29.7 pg (28.0-33.3); Mean Corpuscular Volume 88.3 fL (83.0-100.0); Mean Platelet Volume 9.1 fL (9.4-12.4); Monocytes # 1.6 K/mcL (0.0-1.3); Monocytes % 12.9 %; Neutrophils # 9.5 K/mcL (1.6-8.9); Platelet Count 260 K/mcL (140-400); Red Blood Count 3.94 M/mcL (3.82-4.97); Red Cell Distribution Width 14.9 % (11.5-14.5); Segmented Neutrophils % 75.3 %; White Blood Count 12.6 K/mcL (4.3-11.1)
[2020-05-15 03:53] LABS: BUN/Creatinine Ratio 23 (6-26); Blood Urea Nitrogen 14 mg/dL (8-23); Calcium 8.8 mg/dL (8.6-10.3); Carbon Dioxide 22 mEq/L (23-29); Chloride 102 mEq/L (98-107); Glucose 84 mg/dL (70-105); Osmolality,Calculated 276 (280-300); Potassium 3.3 mEq/L (3.5-5.1); Sodium 133 mEq/L (136-145); eGFR For African Americans > 60 (> 60); eGFR For Non-African Americans > 60 (> 60)
[2020-05-15] MEDS ORDERED: Potassium Chloride 20 MEQ, Lidocaine 1% 2 ML in 0.9 % Sodium Chloride 250 ML IVPB ONE (04:34)
[2020-05-15] MEDS: Ringers Solution, Lactated 1,000 ML IVC SCH (05:20)
[2020-05-15] MEDS ORDERED: *HR* Heparin 5,000 UNIT/ML VIAL SQ SCH (06:00)
[2020-05-15] MEDS ORDERED: Potassium Chloride 40 MEQ, Lidocaine 1% 2 ML in 0.9 % Sodium Chloride 500 ML IVPB ONE (06:49)
[2020-05-15] MEDS: BuPROPion SR (12 HR) 150 MG TABLET PO SCH (08:05)
[2020-05-15] MEDS: Famotidine 20 MG TABLET PO SCH (08:05)
[2020-05-15] MEDS: carvediloL 25 MG TABLET PO SCH (08:05)
[2020-05-15] MEDS: hydrALAZINE 25 MG TABLET PO SCH (08:05)
[2020-05-15] MEDS ORDERED: lisinopriL 10 MG TABLET PO SCH (09:00)
[2020-05-15 10:47] VITALS: BP 165/80
[2020-05-18] MEDS ORDERED: NON-FORMULARY MEDICATION 1 EACH EACH (Alendronate Sodium [Fosamax] 70 MG) PO SCH (19:05)
== END 2020-05-15 15:54 | disposition home health service (06) ==
LOC: 3BNU 13:38 → EMEROOARM 13:38 → 3BNU 18:36
PROVIDERS: ADMIT Internal Medicine; ATTEND Internal Medicine

== ENCOUNTER 2020-05-16 14:37 | Inpatient (IN) ==
[2020-05-16] MEDS ORDERED: Ondansetron 4 MG/2 ML VIAL IVP ONE (14:58)
[2020-05-16] MEDS ORDERED: Isovue-370 500 ML BOTTLE IVP ONE (14:59)
[2020-05-16 15:25] LABS: Basophils % 0.2 %; Eosinophils # 0.1 K/mcL (0.0-0.6); Eosinophils % 0.8 %; Hematocrit 35.4 % (35.3-44.9); Hemoglobin 11.9 g/dL (11.5-15.4); Immature Granulocytes % 0.4 % (0-4); Lymphocytes % 8.3 %; Mean Corpuscular HGB Conc 33.6 g/dL (31.6-35.5); Mean Corpuscular Hemoglobin 29.4 pg (28.0-33.3); Mean Corpuscular Volume 87.4 fL (83.0-100.0); Mean Platelet Volume 9.1 fL (9.4-12.4); Monocytes # 1.6 K/mcL (0.0-1.3); Monocytes % 13.5 %; Neutrophils # 8.8 K/mcL (1.6-8.9); Platelet Count 248 K/mcL (140-400); Red Blood Count 4.05 M/mcL (3.82-4.97); Red Cell Distribution Width 14.8 % (11.5-14.5); Segmented Neutrophils % 76.8 %; White Blood Count 11.5 K/mcL (4.3-11.1)
[2020-05-16 15:38] LABS: Alanine Aminotransferase 20 Units/L (7-52); Albumin 3.8 g/dL (3.5-5.7); Albumin/Globulin Ratio 1.5 (1.1-2.2); Alkaline Phosphatase 59 Units/L (34-104); Aspartate Amino Transferase 22 Units/L (13-39); BUN/Creatinine Ratio 23 (6-26); Bilirubin,Total 0.8 mg/dL (0.3-1.0); Blood Urea Nitrogen 13 mg/dL (8-23); Calcium 8.6 mg/dL (8.6-10.3); Carbon Dioxide 24 mEq/L (23-29); Chloride 99 mEq/L (98-107); Globulin 2.6 g/dL (2.4-3.5); Glucose 122 mg/dL (70-105); Lipase 9 Units/L (11-82); Osmolality,Calculated 271 (280-300); Potassium 3.6 mEq/L (3.5-5.1); Sodium 130 mEq/L (136-145); Total Protein 6.4 g/dL (6.4-8.9); eGFR For African Americans > 60 (> 60); eGFR For Non-African Americans > 60 (> 60)
[2020-05-16] MEDS ORDERED: Milk and Molasses Enema 200 ML RC ONE (17:17)
[2020-05-16 18:12] LABS: Bacteria,Urine Few per hpf (None-Few); Bilirubin,Urine Negative (Negative); Blood,Urine Negative (Negative); Clarity,Urine Clear (Clear); Color,Urine Light-Yellow (Yellow); Glucose,Urine (UA) Normal (Normal); Ketones,Urine Negative (Negative); Leukocyte Esterase,Urine Negative (Negative); Mucus,Urine Few per lpf (None-Few); Nitrite,Urine Negative (Negative); Protein,Urine Trace mg/dL (Neg-Trace); RBC,Urine 0-3 per hpf (0-3); Urobilinogen,Urine Normal (Normal); WBC,Urine 0-3 per hpf (0-3)
[2020-05-16] MEDS ORDERED: Pantoprazole 40 MG VIAL IVP ONE (18:42)
[2020-05-16] MEDS ORDERED: Water for inj. (sterile) 10 ML ONE (19:07)
[2020-05-16] MEDS ORDERED: *HR* Promethazine 25 MG/ML VIAL IVP PRN (19:54)
[2020-05-16] MEDS ORDERED: Naloxone 0.4 MG/ML INJ IVP PRN (19:54)
[2020-05-16] MEDS: 0.9 % Sodium Chloride 1,000 ML IVC SCH (21:36)
[2020-05-16] MEDS ORDERED: polyethylene glycoL 3350 17 GM POWD.PACK PO PRN (22:52)
[2020-05-17 03:33] LABS: Basophils % 0.2 %; Eosinophils # 0.1 K/mcL (0.0-0.6); Hematocrit 32.5 % (35.3-44.9); Hemoglobin 11.1 g/dL (11.5-15.4); Immature Granulocytes % 0.4 % (0-4); Lymphocytes # 1.1 K/mcL (0.6-4.6); Lymphocytes % 9.4 %; Mean Corpuscular HGB Conc 34.2 g/dL (31.6-35.5); Mean Corpuscular Hemoglobin 29.8 pg (28.0-33.3); Mean Corpuscular Volume 87.1 fL (83.0-100.0); Mean Platelet Volume 9.5 fL (9.4-12.4); Monocytes # 1.7 K/mcL (0.0-1.3); Monocytes % 14.1 %; Neutrophils # 9.1 K/mcL (1.6-8.9); Platelet Count 239 K/mcL (140-400); Red Blood Count 3.73 M/mcL (3.82-4.97); Red Cell Distribution Width 14.9 % (11.5-14.5); Segmented Neutrophils % 74.9 %; White Blood Count 12.2 K/mcL (4.3-11.1)
[2020-05-17] MEDS ORDERED: *HR* Metoprolol 5 MG/5 ML VIAL IVP ONE ×2 (03:36→06:25)
[2020-05-17 03:42] LABS: INR 1.1; Prothrombin Time 12.3 Seconds (9.4-12.1)
[2020-05-17 03:50] LABS: BUN/Creatinine Ratio 24 (6-26); Blood Urea Nitrogen 11 mg/dL (8-23); Calcium 8.1 mg/dL (8.6-10.3); Carbon Dioxide 21 mEq/L (23-29); Chloride 102 mEq/L (98-107); Glucose 76 mg/dL (70-105); Magnesium 1.8 mg/dL (1.6-2.6); Osmolality,Calculated 274 (280-300); Phosphorous 3.3 mg/dL (2.7-4.5); Potassium 3.2 mEq/L (3.5-5.1); Sodium 133 mEq/L (136-145); eGFR For African Americans > 60 (> 60); eGFR For Non-African Americans > 60 (> 60)
[2020-05-17] MEDS: BuPROPion SR (12 HR) 150 MG TABLET PO SCH ×2 (08:08→20:52)
[2020-05-17] MEDS: Famotidine 20 MG TABLET PO SCH ×2 (08:09→20:52)
[2020-05-17] MEDS: carvediloL 25 MG TABLET PO SCH ×2 (08:13→17:34)
[2020-05-17] MEDS: lisinopriL 10 MG TABLET PO SCH (11:41)
[2020-05-17] MEDS: 0.9 % Sodium Chloride 1,000 ML IVC SCH (14:48)
[2020-05-17] MEDS: hydrALAZINE 25 MG TABLET PO SCH (14:50)
[2020-05-18] MEDS: hydrALAZINE 25 MG TABLET PO SCH ×3 (01:12→15:51)
[2020-05-18 02:33] LABS: Basophils % 0.2 %; Eosinophils # 0.3 K/mcL (0.0-0.6); Eosinophils % 2.8 %; Hematocrit 33.1 % (35.3-44.9); Hemoglobin 10.9 g/dL (11.5-15.4); Immature Granulocytes % 0.6 % (0-4); Lymphocytes # 1.2 K/mcL (0.6-4.6); Lymphocytes % 13.1 %; Mean Corpuscular HGB Conc 32.9 g/dL (31.6-35.5); Mean Corpuscular Hemoglobin 28.8 pg (28.0-33.3); Mean Corpuscular Volume 87.6 fL (83.0-100.0); Mean Platelet Volume 9.1 fL (9.4-12.4); Monocytes # 1.4 K/mcL (0.0-1.3); Monocytes % 15.3 %; Platelet Count 248 K/mcL (140-400); Red Blood Count 3.78 M/mcL (3.82-4.97); Red Cell Distribution Width 14.9 % (11.5-14.5); White Blood Count 8.9 K/mcL (4.3-11.1)
[2020-05-18 02:55] LABS: Alanine Aminotransferase 16 Units/L (7-52); Albumin 3.3 g/dL (3.5-5.7); Albumin/Globulin Ratio 1.4 (1.1-2.2); Alkaline Phosphatase 55 Units/L (34-104); Aspartate Amino Transferase 16 Units/L (13-39); BUN/Creatinine Ratio 19 (6-26); Bilirubin,Total 0.6 mg/dL (0.3-1.0); Blood Urea Nitrogen 9 mg/dL (8-23); Calcium 8.3 mg/dL (8.6-10.3); Carbon Dioxide 22 mEq/L (23-29); Chloride 103 mEq/L (98-107); Globulin 2.4 g/dL (2.4-3.5); Glucose 95 mg/dL (70-105); Osmolality,Calculated 274 (280-300); Potassium 3.2 mEq/L (3.5-5.1); Sodium 133 mEq/L (136-145); Total Protein 5.7 g/dL (6.4-8.9); eGFR For African Americans > 60 (> 60); eGFR For Non-African Americans > 60 (> 60)
[2020-05-18] MEDS: BuPROPion SR (12 HR) 150 MG TABLET PO SCH ×2 (08:56→20:03)
[2020-05-18] MEDS: Famotidine 20 MG TABLET PO SCH ×2 (08:56→20:04)
[2020-05-18] MEDS: lisinopriL 10 MG TABLET PO SCH (08:57)
[2020-05-18] MEDS: carvediloL 25 MG TABLET PO SCH ×2 (08:57→17:25)
[2020-05-18] MEDS: Acetaminophen 325 MG TABLET PO PRN (09:00)
[2020-05-18] MEDS ORDERED: Bisacodyl 10 MG RECTAL SUPPOSITORY RC PRN (15:18)
[2020-05-18] MEDS ORDERED: Potassium Chloride Elixir 20 MEQ/15 ML UDC PO ONE (15:28)
[2020-05-18] MEDS ORDERED: NON-FORMULARY MEDICATION 1 EACH EACH (Alendronate Sodium [Fosamax] 70 MG) PO SCH (22:52)
[2020-05-19] MEDS: hydrALAZINE 25 MG TABLET PO SCH ×3 (00:05→17:38)
[2020-05-19 07:09] LABS: BUN/Creatinine Ratio 27 (6-26); Blood Urea Nitrogen 12 mg/dL (8-23); Calcium 8.6 mg/dL (8.6-10.3); Carbon Dioxide 24 mEq/L (23-29); Chloride 101 mEq/L (98-107); Glucose 113 mg/dL (70-105); Magnesium 1.9 mg/dL (1.6-2.6); Osmolality,Calculated 273 (280-300); Sodium 131 mEq/L (136-145); eGFR For African Americans > 60 (> 60); eGFR For Non-African Americans > 60 (> 60)
[2020-05-19 07:52] LABS: Red Blood Count 3.93 M/mcL (3.82-4.97); White Blood Count 10.4 K/mcL (4.3-11.1)
[2020-05-19 07:53] LABS: Basophils % 0.4 %; Eosinophils # 0.2 K/mcL (0.0-0.6); Eosinophils % 2.1 %; Hematocrit 34.6 % (35.3-44.9); Hemoglobin 11.4 g/dL (11.5-15.4); Immature Granulocytes % 0.4 % (0-4); Lymphocytes # 1.2 K/mcL (0.6-4.6); Lymphocytes % 11.1 %; Mean Corpuscular HGB Conc 32.9 g/dL (31.6-35.5); Mean Platelet Volume 9.5 fL (9.4-12.4); Monocytes # 1.4 K/mcL (0.0-1.3); Monocytes % 13.5 %; Neutrophils # 7.5 K/mcL (1.6-8.9); Platelet Count 287 K/mcL (140-400); Red Cell Distribution Width 14.7 % (11.5-14.5); Segmented Neutrophils % 72.5 %
[2020-05-19] MEDS ORDERED: Potassium Chloride 40 MEQ, Lidocaine 1% 2 ML in 0.9 % Sodium Chloride 500 ML IVPB ONE (08:26)
[2020-05-19] MEDS ORDERED: NON-FORMULARY MEDICATION 1 EACH EACH (Omeprazole [Prilosec] 40 MG) PO SCH (09:00)
[2020-05-19] MEDS: lisinopriL 10 MG TABLET PO SCH (10:07)
[2020-05-19] MEDS: BuPROPion SR (12 HR) 150 MG TABLET PO SCH ×2 (10:07→20:55)
[2020-05-19] MEDS: carvediloL 25 MG TABLET PO SCH ×2 (10:08→17:38)
[2020-05-19] MEDS: Famotidine 20 MG TABLET PO SCH ×2 (10:08→20:55)
[2020-05-20] MEDS: hydrALAZINE 25 MG TABLET PO SCH ×4 (00:39→23:55)
[2020-05-20 05:07] LABS: Basophils % 0.4 %; Eosinophils # 0.2 K/mcL (0.0-0.6); Eosinophils % 2.4 %; Hematocrit 32.6 % (35.3-44.9); Hemoglobin 11.4 g/dL (11.5-15.4); Immature Granulocytes % 0.3 % (0-4); Lymphocytes # 1.1 K/mcL (0.6-4.6); Lymphocytes % 14.7 %; Mean Corpuscular Hemoglobin 30.4 pg (28.0-33.3); Mean Corpuscular Volume 86.9 fL (83.0-100.0); Mean Platelet Volume 8.8 fL (9.4-12.4); Monocytes % 12.8 %; Neutrophils # 5.3 K/mcL (1.6-8.9); Platelet Count 274 K/mcL (140-400); Red Blood Count 3.75 M/mcL (3.82-4.97); Red Cell Distribution Width 15.1 % (11.5-14.5); Segmented Neutrophils % 69.4 %; White Blood Count 7.6 K/mcL (4.3-11.1)
[2020-05-20 05:21] LABS: BUN/Creatinine Ratio 20 (6-26); Blood Urea Nitrogen 10 mg/dL (8-23); Calcium 8.4 mg/dL (8.6-10.3); Carbon Dioxide 22 mEq/L (23-29); Chloride 102 mEq/L (98-107); Glucose 99 mg/dL (70-105); Osmolality,Calculated 271 (280-300); Potassium 3.3 mEq/L (3.5-5.1); Sodium 131 mEq/L (136-145); eGFR For African Americans > 60 (> 60); eGFR For Non-African Americans > 60 (> 60)
[2020-05-20] MEDS: BuPROPion SR (12 HR) 150 MG TABLET PO SCH ×2 (08:09→22:02)
[2020-05-20] MEDS: carvediloL 25 MG TABLET PO SCH ×2 (08:09→16:16)
[2020-05-20] MEDS: lisinopriL 10 MG TABLET PO SCH (08:10)
[2020-05-20] MEDS: Famotidine 20 MG TABLET PO SCH ×2 (08:10→22:02)
[2020-05-20] MEDS: Acetaminophen 325 MG TABLET PO PRN (16:17)
[2020-05-21 05:12] LABS: Hematocrit 34.8 % (35.3-44.9); Hemoglobin 11.8 g/dL (11.5-15.4); Mean Corpuscular HGB Conc 33.9 g/dL (31.6-35.5); Mean Corpuscular Hemoglobin 29.5 pg (28.0-33.3); Mean Platelet Volume 8.9 fL (9.4-12.4); Platelet Count 313 K/mcL (140-400); Red Cell Distribution Width 14.9 % (11.5-14.5); White Blood Count 8.6 K/mcL (4.3-11.1)
[2020-05-21 05:30] LABS: BUN/Creatinine Ratio 23 (6-26); Blood Urea Nitrogen 11 mg/dL (8-23); Calcium 8.3 mg/dL (8.6-10.3); Carbon Dioxide 21 mEq/L (23-29); Chloride 101 mEq/L (98-107); Glucose 100 mg/dL (70-105); Magnesium 1.7 mg/dL (1.6-2.6); Osmolality,Calculated 269 (280-300); Potassium 3.2 mEq/L (3.5-5.1); Sodium 130 mEq/L (136-145); eGFR For African Americans > 60 (> 60); eGFR For Non-African Americans > 60 (> 60)
[2020-05-21] MEDS ORDERED: Potassium Chloride 40 MEQ, Lidocaine 1% 2 ML in D5% in Water 500 ML IVPB ONE (08:10)
[2020-05-21] MEDS ORDERED: Spironolactone 25 MG TABLET PO SCH (09:00)
[2020-05-21] MEDS: Famotidine 20 MG TABLET PO SCH ×2 (10:43→21:26)
[2020-05-21] MEDS: BuPROPion SR (12 HR) 150 MG TABLET PO SCH ×2 (10:43→21:26)
[2020-05-21] MEDS: carvediloL 25 MG TABLET PO SCH ×2 (10:43→17:01)
[2020-05-21] MEDS: hydrALAZINE 25 MG TABLET PO SCH ×2 (10:43→17:01)
[2020-05-21] MEDS: lisinopriL 10 MG TABLET PO SCH (10:43)
[2020-05-21] MEDS: Spironolactone 25 MG TABLET PO SCH (21:26)
[2020-05-22] MEDS: hydrALAZINE 25 MG TABLET PO SCH ×3 (00:11→15:42)
[2020-05-22 04:20] LABS: Hematocrit 35.8 % (35.3-44.9); Hemoglobin 12.1 g/dL (11.5-15.4); Mean Corpuscular HGB Conc 33.8 g/dL (31.6-35.5); Mean Corpuscular Hemoglobin 28.9 pg (28.0-33.3); Mean Corpuscular Volume 85.6 fL (83.0-100.0); Mean Platelet Volume 8.7 fL (9.4-12.4); Platelet Count 335 K/mcL (140-400); Red Blood Count 4.18 M/mcL (3.82-4.97); Red Cell Distribution Width 14.7 % (11.5-14.5); White Blood Count 9.2 K/mcL (4.3-11.1)
[2020-05-22 04:44] LABS: BUN/Creatinine Ratio 25 (6-26); Blood Urea Nitrogen 12 mg/dL (8-23); Calcium 8.9 mg/dL (8.6-10.3); Carbon Dioxide 19 mEq/L (23-29); Chloride 97 mEq/L (98-107); Glucose 104 mg/dL (70-105); Magnesium 1.6 mg/dL (1.6-2.6); Osmolality,Calculated 260 (280-300); Potassium 4.1 mEq/L (3.5-5.1); Sodium 125 mEq/L (136-145); eGFR For African Americans > 60 (> 60); eGFR For Non-African Americans > 60 (> 60)
[2020-05-22] MEDS: carvediloL 25 MG TABLET PO SCH ×2 (08:18→15:43)
[2020-05-22] MEDS: Famotidine 20 MG TABLET PO SCH (08:40)
[2020-05-22] MEDS: Spironolactone 25 MG TABLET PO SCH ×2 (08:40→22:01)
[2020-05-22] MEDS: BuPROPion SR (12 HR) 150 MG TABLET PO SCH ×2 (08:40→22:14)
[2020-05-22] MEDS: lisinopriL 10 MG TABLET PO SCH (08:43)
[2020-05-22] MEDS ORDERED: *HR* Propofol 200 MG/20 ML VIAL IVP ONE (09:49)
[2020-05-22] MEDS ORDERED: Lidocaine HCL 4 ML Topical Solution (Laryng-O-Jet Kit Sterile Pak) TP ONE (09:49)
[2020-05-22] MEDS ORDERED: *HR* Midazolam HCl 2 MG/2 ML VIAL ONE (09:49)
[2020-05-22] MEDS ORDERED: Dexamethasone 4 MG/ML VIAL ONE (09:49)
[2020-05-22] MEDS ORDERED: Ondansetron 4 MG/2 ML VIAL ONE (09:49)
[2020-05-22] MEDS ORDERED: Lidocaine -MPF 2% 2 ML VIAL ONE ×2 (09:49)
[2020-05-22] MEDS ORDERED: *HR* Succinylcholine 200 MG/10 ML VIAL IVP ONE (09:49)
[2020-05-22] MEDS ORDERED: *HR* Labetalol 20 MG/4 ML SYRINGE IVP ONE (09:49)
[2020-05-22] MEDS ORDERED: *HR* FentaNYL (PF) 100 MCG/2 ML VIAL ONE (09:49)
[2020-05-22] MEDS ORDERED: *HR* Rocuronium Bromide 50 MG/5 ML VIAL ONE (09:49)
[2020-05-22] MEDS ORDERED: *HR* Remifentanil 1 MG VIAL IVP ONE ×2 (09:51→09:54)
[2020-05-22] MEDS ORDERED: Isovue-300 50ML VIAL ONE (10:03)
[2020-05-22] MEDS ORDERED: Albumin Human 5% 25.0 GM/500 ML IV.SOLN ONE (10:05)
[2020-05-22] MEDS ORDERED: Mannitol 20% 100 GM/500 ML IV.SOLN IVC ONE (10:06)
[2020-05-22] MEDS ORDERED: *HR* Etomidate 40 MG/20 ML VIAL IVP ONE (10:11)
[2020-05-22] MEDS ORDERED: Clindamycin 600 MG/50 ML 600 MG/50 ML IV.SOLN IVPB ONE ×3 (10:39→13:45)
[2020-05-22] MEDS ORDERED: *HR* PHENYLEPHRINE 1,000 MCG/10 ML SYRINGE IVP ONE ×3 (11:03→11:51)
[2020-05-22] MEDS ORDERED: EPHEDrine 50 MG/ML VIAL ONE (11:08)
[2020-05-22] MEDS ORDERED: Bisacodyl 10 MG RECTAL SUPPOSITORY RC PRN (13:45)
[2020-05-22] MEDS ORDERED: NON-FORMULARY MEDICATION 1 EACH EACH (Ondansetron Hcl [Ondansetron Hcl] 8 MG) PO PRN (13:45)
[2020-05-22] MEDS ORDERED: Naloxone 0.4 MG/ML INJ IVP PRN (13:45)
[2020-05-22] MEDS ORDERED: Melatonin 3 MG TABLET PO PRN (13:45)
[2020-05-22] MEDS ORDERED: *HR* OxyCODONE Immed Rel 5 MG TABLET PO PRN (13:45)
[2020-05-22] MEDS ORDERED: Acetaminophen 325 MG TABLET PO PRN (13:45)
[2020-05-22] MEDS ORDERED: *HR* Promethazine 25 MG/ML VIAL IVP PRN (13:45)
[2020-05-22] MEDS ORDERED: Ondansetron ODT 4 MG TAB.RAPDIS SL PRN (13:45)
[2020-05-22] MEDS ORDERED: Ondansetron 4 MG/2 ML VIAL IVP PRN (13:45)
[2020-05-22] MEDS ORDERED: polyethylene glycoL 3350 17 GM POWD.PACK PO PRN (13:45)
[2020-05-22] MEDS: Ringers Solution, Lactated 1,000 ML IVC SCH (14:25)
[2020-05-22] MEDS ORDERED: Clindamycin 600 MG/50 ML 600 MG/50 ML IV.SOLN IVPB SCH (16:00)
[2020-05-22] MEDS: Clindamycin 600 MG/50 ML 600 MG/50 ML IV.SOLN IVPB SCH (18:36)
[2020-05-22] MEDS ORDERED: Famotidine 20 MG TABLET PO SCH (21:00)
[2020-05-23] MEDS: Ringers Solution, Lactated 1,000 ML IVC SCH ×2 (01:41→14:32)
[2020-05-23] MEDS: hydrALAZINE 25 MG TABLET PO SCH ×2 (01:41→07:10)
[2020-05-23] MEDS: Clindamycin 600 MG/50 ML 600 MG/50 ML IV.SOLN IVPB SCH (04:45)
[2020-05-23 06:51] LABS: Basophils % 0.2 %; Eosinophils % 0.4 %; Hematocrit 32.2 % (35.3-44.9); Hemoglobin 11.1 g/dL (11.5-15.4); Immature Granulocytes % 0.4 % (0-4); Lymphocytes % 22.1 %; Mean Corpuscular HGB Conc 34.5 g/dL (31.6-35.5); Mean Corpuscular Hemoglobin 29.8 pg (28.0-33.3); Mean Corpuscular Volume 86.6 fL (83.0-100.0); Mean Platelet Volume 8.7 fL (9.4-12.4); Monocytes # 1.2 K/mcL (0.0-1.3); Monocytes % 13.3 %; Neutrophils # 5.8 K/mcL (1.6-8.9); Platelet Count 313 K/mcL (140-400); Red Blood Count 3.72 M/mcL (3.82-4.97); Red Cell Distribution Width 14.9 % (11.5-14.5); Segmented Neutrophils % 63.6 %; White Blood Count 9.1 K/mcL (4.3-11.1)
[2020-05-23 07:08] LABS: BUN/Creatinine Ratio 23 (6-26); Blood Urea Nitrogen 13 mg/dL (8-23); Calcium 8.5 mg/dL (8.6-10.3); Carbon Dioxide 19 mEq/L (23-29); Chloride 100 mEq/L (98-107); Glucose 101 mg/dL (70-105); Magnesium 1.5 mg/dL (1.6-2.6); Osmolality,Calculated 268 (280-300); Potassium 3.5 mEq/L (3.5-5.1); Sodium 129 mEq/L (136-145); eGFR For African Americans > 60 (> 60); eGFR For Non-African Americans > 60 (> 60)
[2020-05-23] MEDS: BuPROPion SR (12 HR) 150 MG TABLET PO SCH (07:09)
[2020-05-23] MEDS: Spironolactone 25 MG TABLET PO SCH (07:09)
[2020-05-23] MEDS: carvediloL 25 MG TABLET PO SCH (07:10)
[2020-05-23] MEDS ORDERED: Magnesium Oxide 400 MG TABLET PO SCH (09:00)
[2020-05-23] MEDS ORDERED: Famotidine 20 MG TABLET PO SCH (09:00)
[2020-05-23] MEDS ORDERED: lisinopriL 10 MG TABLET PO SCH (09:00)
[2020-05-23 11:02] VITALS: BP 183/99
== END 2020-05-23 17:09 | disposition other institution (70) | DRG 478 ==
LOC: 3ANU 14:37 → EMEROOARM 14:37 → SUATTDRO 19:23 → 3ANU 20:37
PROVIDERS: ADMIT Internal Medicine; ATTEND Internal Medicine